=== PATIENT | female | born 1950 | race Caucasian/White ===

== ENCOUNTER 2016-07-10 09:36 | Inpatient (IN) | payer BC ==
[~2016-07-10] VITALS: Ht 152.4 cm; Wt 85.4 kg
[~2016-07-10 09:36] MED LIST: AMLO5TAB2 PO; AMOX500T PO; CYCL10TA2 PO; TRAM-29 PO; ZOLP10TA PO
[2016-07-10] MEDS ORDERED: FAMOTIDINE 20 MG/2 ML VIAL IVP ONE (10:00)
[2016-07-10] MEDS ORDERED: ONDANSETRON PF 4 MG/2 ML VIAL. IV ONE (10:00)
[2016-07-10] MEDS ORDERED: IV NORMAL SALINE 1000ML BAG 1,000 ML IV ONE ×2 (10:00→12:45)
--- NOTE | 2016-07-10 10:02 | PHYS DOC ---
Past Medical History Past Medical History: Hypertension, Other Additional Past Medical Histor: CREST, RAYNAUDS Past Surgical History: Appendectomy, Cholecystectomy, Hysterectomy, Other Additional Past Surgical Histo: BREAST REDUCTION, RIGHT FOOT SURGERY Alcohol Use: Rarely Drug Use: None Adult General Chief Complaint Chief Complaint: RECTAL BLEED [facility] HPI Patient is a 66 year old female with history of CREST, hypertension, cholecystectomy and Raynaud's disease who presents today with black tarry stools that began 3 days ago. Patient is also complaining of RUQ abdominal pain. Patient is also complaining of nausea with no vomiting. Patient states she 's had loose stools since yesterday. Patient states she has history of lower GI bleed. She states she had an upper GI endoscopy done [place] [address] Duncan and followed up with him. Review of Systems Review of Systems Constitutional: Denies fever or chills [] Eyes: Denies change in visual acuity, redness, or eye pain [] HENT: Denies nasal congestion or sore throat [] Respiratory: Denies cough or shortness of breath [] Cardiovascular: No additional information not addressed in HPI [] GI: Upper abdominal pain, nausea, black tarry stools. : Denies dysuria or hematuria [] Musculoskeletal: Denies back pain or joint pain [] Integument: Denies rash or skin lesions [] Neurologic: Denies headache, focal weakness or sensory changes [] Endocrine: Denies polyuria or polydipsia [] Current Medications Current Medications Current Medications Medications (Trade) Dose Ordered Sig/Denise Start Time Stop Time Status Last Admin Dose Admin Famotidine (Pepcid) 20 mg 1X ONCE 07/10/16 10:00 07/10/16 10:01 DC 07/10/16 10:12 20 MG Ondansetron HCl (Zofran) 4 mg 1X ONCE 07/10/16 10:00 07/10/16 10:01 DC 07/10/16 10:11 4 MG Sodium Chloride 1,000 ml @ 1,000 mls/hr 1X ONCE 07/10/16 10:00 07/10/16 10:59 DC 07/10/16 10:09 1,000 MLS/HR Allergies Allergies Allergies Coded Allergies Type Severity Reaction Last Updated Verified Sulfa (Sulfonamide Antibiotics) Allergy Severe Anaphylaxis 06/06/15 Yes codeine Allergy Mild NAUSEA 05/15/15 Yes Physical Exam Physical Exam Constitutional: Well developed, well nourished, no acute distress, non-toxic appearance. [] HENT: Normocephalic, atraumatic, bilateral external ears normal, oropharynx moist, no oral exudates, nose normal. [] Eyes: PERRLA, EOMI, conjunctiva normal, no discharge. [] Neck: Normal range of motion, no tenderness, supple, no stridor. [] Cardiovascular:Heart rate regular rhythm, no murmur [] Lungs & Thorax: Bilateral breath sounds clear to auscultation [] Abdomen: Rounded abdomen. Bowel sounds normal, soft, no tenderness, no masses, no pulsatile masses. [] Rectal exam External rectal area has small amount of hemorrhoids. No internal hemorrhoids on exam. Fecal material from rectal exam appears black and tarry with red bloody areas Skin: Warm, dry, no erythema, no rash. [] Back: No tenderness, no CVA tenderness. [] Extremities: No tenderness, no cyanosis, no clubbing, ROM intact, no edema. [] Neurologic: Alert and oriented X 3, normal motor function, normal sensory function, no focal deficits noted. [] Psychologic: Affect normal, judgement normal, mood normal. [] Current Patient Data Vital Signs Vital Signs Date Time Temp Pulse Resp B/P (MAP) Pulse Ox O2 Delivery O2 Flow Rate FiO2 07/10/16 10:50 68 16 118/58 (78) 96 Room Air 07/10/16 09:45 97.9 97.9 Lab Values Laboratory Tests Test 07/10/16 09:45 07/10/16 09:50 07/10/16 10:05 Stool Occult Blood Positive (NEG) White Blood Count 6.9 x10^3/uL (4.0-11.0) Red Blood Count 3.95 x10^6/uL (3.50-5.40) Hemoglobin 11.8 g/dL (12.0-15.5) L Hematocrit 34.8 % (36.0-47.0) L Mean Corpuscular Volume 88 fL (79-100) Mean Corpuscular Hemoglobin 30 pg (25-35) Mean Corpuscular Hemoglobin Concent 34 g/dL (31-37) Red Cell Distribution Width 15.5 % (11.5-14.5) H Platelet Count 148 x10^3/uL (140-400) Neutrophils (%) (Auto) 61 % (31-73) Lymphocytes (%) (Auto) 22 % (24-48) L Monocytes (%) (Auto) 12 % (0-9) H Eosinophils (%) (Auto) 4 % (0-3) H Basophils (%) (Auto) 1 % (0-3) Neutrophils # (Auto) 4.2 x10^3uL (1.8-7.7) Lymphocytes # (Auto) 1.5 x10^3/uL (1.0-4.8) Monocytes # (Auto) 0.8 x10^3/uL (0.0-1.1) Eosinophils # (Auto) 0.3 x10^3/uL (0.0-0.7) Basophils # (Auto) 0.1 x10^3/uL (0.0-0.2) Prothrombin Time 12.6 SEC (11.7-14.0) Prothrombin Time INR 1.0 (0.8-1.1) PTT 29 SEC (24-38) Sodium Level 137 mmol/L (136-145) Potassium Level 3.7 mmol/L (3.5-5.1) Chloride Level 104 mmol/L (98-107) Carbon Dioxide Level 24 mmol/L (21-32) Anion Gap 9 (6-14) Blood Urea Nitrogen 25 mg/dL (7-20) H Creatinine 1.0 mg/dL (0.6-1.0) Estimated GFR (Cockcroft-Gault) 55.3 BUN/Creatinine Ratio 25 (6-20) H Glucose Level 90 mg/dL (70-99) Calcium Level 8.6 mg/dL (8.5-10.1) Total Bilirubin 1.0 mg/dL (0.2-1.0) Aspartate Amino Transferase (AST) 52 U/L (15-37) H Alanine Aminotransferase (ALT) 53 U/L (14-59) Alkaline Phosphatase 128 U/L (46-116) H Total Protein 7.0 g/dL (6.4-8.2) Albumin 3.0 g/dL (3.4-5.0) L Albumin/Globulin Ratio 0.8 (1.0-1.7) L Lipase 210 U/L (73-393) Urine Collection Type Void Urine Color Yellow Urine Clarity Clear Urine pH 5.5 Urine Specific [place] <=1.005 Urine Protein Negative mg/dL (NEG-TRACE) Urine Glucose (UA) Negative mg/dL (NEG) Urine Ketones (Stick) Negative mg/dL (NEG) Urine Blood Negative (NEG) Urine Nitrite Negative (NEG) Urine Bilirubin Negative (NEG) Urine Urobilinogen Dipstick 0.2 mg/dL (0.2 mg/dL) Urine Leukocyte Esterase Negative (NEG) Urine RBC 0 /HPF (0-2) Urine WBC 0 /HPF (0-4) Urine Squamous Epithelial Cells Few /LPF Urine Bacteria 0 /HPF (0-FEW) Laboratory Tests 07/10/16 09:50 Laboratory Tests 07/10/16 09:50 EKG EKG [] Radiology/Procedures Radiology/Procedures [] Course & Med Decision Making Course & Med Decision Making Pertinent Labs and Imaging studies reviewed. (See chart for details) Patient is in the ED with complaints of black tarry stools for 3 days. She has history of GI bleed. She states she had an upper GI scope done in 2015 and follows up with DR. Duncan. Patient denies using NSAIDs. CBC with hemoglobin of 11.8, hematocrit 34.8. CMP with no acute findings, vitals on arrival to the ED temperature 97.9, heart rate 78, respiration 18 on room air, O2 sats 95% on room air, blood pressure 169/70. Consulted with Dr. Fierro who accepted patient for admission. Consulted Dr. Duncan who will follow up with the patient. Dragon Disclaimer Dragon Disclaimer This electronic medical record was generated, in whole or in part, using a voice recognition dictation system. Departure Departure Impression: Primary Impression: GI bleed Additional Impression: Hypertension Disposition: ADMITTED INPATIENT Admitting Physician: Prashanth Fierro Condition: STABLE Referrals: ABRAHAM PAUL Jr, MD (PCP) Problem Qualifiers Primary Impression: GI bleed GI bleed type/associated pathology: melena Qualified Codes: K92.1 - Melena Additional Impression: Hypertension Hypertension type: unspecified secondary hypertension Qualified Codes: I15.9 - Secondary hypertension, unspecified MUTUNGAASIA PH[employer]GRAPHIC SPECIALIST July 10, 2016 10:02
[2016-07-10 10:10] LABS: BASO # 0.1 x10^3/uL (0.0-0.2); BASO % 1 % (0-3); EOS % 4 % (0-3); HEMATOCRIT 34.8 % (36.0-47.0); HEMOGLOBIN 11.8 g/dL (12.0-15.5); LYMPH # 1.5 x10^3/uL (1.0-4.8); LYMPH % 22 % (24-48); MEAN CORPUSCULAR HEMOGLOBIN 30 pg (25-35); MEAN CORPUSCULAR HGB CONC 34 g/dL (31-37); MEAN CORPUSCULAR VOLUME 88 fL (79-100); MONO % 12 % (0-9); NEUT % 61 % (31-73); PLATELET COUNT 148 x10^3/uL (140-400); RED BLOOD COUNT 3.95 x10^6/uL (3.50-5.40); RED CELL DISTRIBUTION WIDTH 15.5 % (11.5-14.5); WHITE BLOOD COUNT 6.9 x10^3/uL (4.0-11.0)
[2016-07-10 10:12] LABS: CALCIUM 8.6 mg/dL (8.5-10.1); GFR 55.3; POTASSIUM 3.7 mmol/L (3.5-5.1)
[2016-07-10 10:20] LABS: ALBUMIN/GLOBULIN RATIO 0.8 (1.0-1.7)
[2016-07-10 10:31] LABS: NEG OBC FOB NEG; POS OBC FOB POS
[2016-07-10 10:39] LABS: PROTHROMBIN TIME PATIENT 12.6 SEC (11.7-14.0)
[2016-07-10 10:49] LABS: BILIRUBIN,URINE NEGATIVE (NEG); GLUCOSE,URINE NEGATIVE (NEG); NITRITE,URINE NEGATIVE (NEG); PH,URINE 5.5; PROTEIN,URINE NEGATIVE (NEG-TRACE); UROBILINOGEN,URINE 0.2 mg/dL (0.2 mg/dL)
[2016-07-10 11:09] LABS: RBC,URINE 0 /HPF (0-2)
[2016-07-10 11:10] LABS: BACTERIA,URINE 0 /HPF (0-FEW); SQUAMOUS EPITHELIAL CELL,UR FEW /LPF; WBC,URINE 0 /HPF (0-4)
[2016-07-10] MEDS ORDERED: fentaNYL PF VIAL 100 MCG/2 ML VIAL IV PRN (12:45)
[2016-07-10] MEDS ORDERED: ONDANSETRON PF 4 MG/2 ML VIAL. IV PRN (12:45)
[2016-07-10] MEDS ORDERED: PANTOPRAZOLE SODIUM IV 80 MG in IV NORMAL SALINE 100ML 100 ML IV ONE (13:00)
[2016-07-10 13:50] VITALS: BP 124/48
--- NOTE | 2016-07-10 13:52 | PDOC2 ---
GI CONSULT Reason For Consult: GI Bleed HPI: HPI: 66 y/o female evaluated in the ER w/ pending admission. Reports black stools ( first formed, now loose) x 3 days, some RUQ pain and bloating which have improved. Some SOA which is not a new symptom. No n/v, reflux/heartburn, dysphagia, weight loss, change in appetite. Had similar symptoms in 2016, underwent EGD w/ Dr. Duncan in 05/2015 which showed non-erosive gastritis. Colonoscopy in 06/2015 showed sigmoid diverticulosis. SBCE/SBS was discussed, neither performed. Takes Tylenol PRN, no ASA or NSAIDs. No Pepto or iron. PMH: PMH: CREST (follows w/ rheum), Raynaud's, hypothyroidism, breast reduction, tonsillectomy, appendectomy, cholecystectomy, hysterectomy, unilateral salpingo- oophorectomy FH: Family History: Cancer (colon - grandmother, lung - father) Social History: Smoke: No Drugs: None ROS: GEN: Denies fevers, chills, sweats HEENT: Denies blurred vision, sore throat CV: Denies chest pain RESP: +shortness of air GI: Per HPI : Denies hematuria, dysuria ENDO: Denies weight changes NEURO: Denies confusion, dizziness MSK: Denies weakness, joint pain/swelling SKIN: Denies jaundice, pruritus Vitals: Vitals: Vital Signs Date Time Temp Pulse Resp B/P (MAP) Pulse Ox O2 Delivery O2 Flow Rate FiO2 07/10/16 12:52 62 18 111/52 (71) 99 Room Air 07/10/16 09:45 97.9 97.9 Labs: Labs: Laboratory Tests Test 07/10/16 09:45 07/10/16 09:50 07/10/16 10:05 Stool Occult Blood Positive (NEG) White Blood Count 6.9 x10^3/uL (4.0-11.0) Red Blood Count 3.95 x10^6/uL (3.50-5.40) Hemoglobin 11.8 g/dL (12.0-15.5) Hematocrit 34.8 % (36.0-47.0) Mean Corpuscular Volume 88 fL (79-100) Mean Corpuscular Hemoglobin 30 pg (25-35) Mean Corpuscular Hemoglobin Concent 34 g/dL (31-37) Red Cell Distribution Width 15.5 % (11.5-14.5) Platelet Count 148 x10^3/uL (140-400) Neutrophils (%) (Auto) 61 % (31-73) Lymphocytes (%) (Auto) 22 % (24-48) Monocytes (%) (Auto) 12 % (0-9) Eosinophils (%) (Auto) 4 % (0-3) Basophils (%) (Auto) 1 % (0-3) Neutrophils # (Auto) 4.2 x10^3uL (1.8-7.7) Lymphocytes # (Auto) 1.5 x10^3/uL (1.0-4.8) Monocytes # (Auto) 0.8 x10^3/uL (0.0-1.1) Eosinophils # (Auto) 0.3 x10^3/uL (0.0-0.7) Basophils # (Auto) 0.1 x10^3/uL (0.0-0.2) Prothrombin Time 12.6 SEC (11.7-14.0) Prothromb Time International Ratio 1.0 (0.8-1.1) Activated Partial Thromboplast Time 29 SEC (24-38) Sodium Level 137 mmol/L (136-145) Potassium Level 3.7 mmol/L (3.5-5.1) Chloride Level 104 mmol/L (98-107) Carbon Dioxide Level 24 mmol/L (21-32) Anion Gap 9 (6-14) Blood Urea Nitrogen 25 mg/dL (7-20) Creatinine 1.0 mg/dL (0.6-1.0) Estimated GFR (Cockcroft-Gault) 55.3 BUN/Creatinine Ratio 25 (6-20) Glucose Level 90 mg/dL (70-99) Calcium Level 8.6 mg/dL (8.5-10.1) Total Bilirubin 1.0 mg/dL (0.2-1.0) Aspartate Amino Transf (AST/SGOT) 52 U/L (15-37) Alanine Aminotransferase (ALT/SGPT) 53 U/L (14-59) Alkaline Phosphatase 128 U/L (46-116) Total Protein 7.0 g/dL (6.4-8.2) Albumin 3.0 g/dL (3.4-5.0) Albumin/Globulin Ratio 0.8 (1.0-1.7) Lipase 210 U/L (73-393) Urine Collection Type Void Urine Color Yellow Urine Clarity Clear Urine pH 5.5 Urine Specific [place] <=1.005 Urine Protein Negative mg/dL (NEG-TRACE) Urine Glucose (UA) Negative mg/dL (NEG) Urine Ketones (Stick) Negative mg/dL (NEG) Urine Blood Negative (NEG) Urine Nitrite Negative (NEG) Urine Bilirubin Negative (NEG) Urine Urobilinogen Dipstick 0.2 mg/dL (0.2 mg/dL) Urine Leukocyte Esterase Negative (NEG) Urine RBC 0 /HPF (0-2) Urine WBC 0 /HPF (0-4) Urine Squamous Epithelial Cells Few /LPF Urine Bacteria 0 /HPF (0-FEW) Allergies: Coded Allergies: Sulfa (Sulfonamide Antibiotics) (Verified Allergy, Severe, Anaphylaxis, 06/06/15) codeine (Verified Allergy, Mild, NAUSEA, 05/15/15) Medications: Current Medications Medications (Trade) Dose Ordered Sig/Denise Route PRN Reason Start Time Stop Time Status Last Admin Dose Admin Sodium Chloride 1,000 ml @ 1,000 mls/hr 1X ONCE IV 07/10/16 10:00 07/10/16 10:59 DC 07/10/16 10:09 Famotidine (Pepcid) 20 mg 1X ONCE IVP 07/10/16 10:00 07/10/16 10:01 DC 07/10/16 10:12 Ondansetron HCl (Zofran) 4 mg 1X ONCE IV 07/10/16 10:00 07/10/16 10:01 DC 07/10/16 10:11 Pantoprazole Sodium 80 mg/ Sodium Chloride 100 ml @ 10 mls/hr 1X ONCE IV 07/10/16 13:00 07/10/16 22:59 07/10/16 13:13 Sodium Chloride 1,000 ml @ 75 mls/hr 1X ONCE IV 07/10/16 12:45 07/11/16 02:04 07/10/16 13:17 Imaging: Imaging: - PE: GEN: NAD HEENT: Atraumatic, PERRL LUNGS: CTAB anteriorly HEART: RRR ABD: NABS, S/ND/NT EXTREMITY: No edema SKIN: No rashes, no jaundice NEURO/PSYCH: A & O 3 A/P: A/P: Dark stools -onset 3 days ago -similar symptoms in 2016, EGD and colonoscopy w/ non-erosive gastritis and diverticulosis RUQ pain, bloating Anemia, heme positive stool -- D/w Dr. Duncan - will check bleeding scan and monitor labs. Add PPI. LUI POWELL July 10, 2016 13:52
[2016-07-10 15:00] VITALS: BP 113/46
--- NOTE | 2016-07-10 16:20 | RAD ---
Indication: Bloody stools. The patient was administered 33 mCi technetium 99 9M pertechnetate labeled to the patient's red blood cells and imaging over the abdomen was performed. There is normal uptake of activity by the liver and spleen as well as within the aorta and iliac vasculature. No abnormal accumulation of activity is identified to suggest GI bleed. Impression: Normal GI bleeding scan.
--- NOTE | 2016-07-10 16:30 | HP ---
ADMIT DATE: 07/10/2016 CHIEF COMPLAINT: GI bleed, dark stools. HISTORY OF PRESENT ILLNESS: The patient is a pleasant middle-aged female who presents with dark stools, have been occurring for several days. She has had previous ulcers. I discussed the case with the ER physician. We are going to admit the patient ____ IV proton pump inhibitors and consult GI. She will probably be going for an endoscopy. PAST MEDICAL HISTORY: Previous GI bleeds, hypertension, muscle spasms and insomnia. ALLERGIES: SULFA AND CODEINE. FAMILY HISTORY: Diabetes. SOCIAL HISTORY: She does not drink, smoke or take drugs. MEDICATIONS: Reviewed. She is on 5 medications, please refer to the MRAD. REVIEW OF SYSTEMS: GENERAL: No history of weight change, weakness or fevers. SKIN: No bruising, hair changes or rashes. EYES: No blurred, double or loss of vision. NOSE AND THROAT: No history of nosebleeds, hoarseness or sore throat. HEART: No history of palpitations, chest pain or shortness of breath on exertion. LUNGS: Denies cough, hemoptysis, wheezing or shortness of breath. GASTROINTESTINAL: She complains of dark stools. GENITOURINARY: No history of frequency, urgency, hesitancy or nocturia. NEUROLOGIC: Denies history of numbness, tingling, tremor or weakness. PSYCHIATRIC: No history of panic, anxiety or depression. ENDOCRINE: No history of heat or cold intolerance, polyuria or polydipsia. EXTREMITIES: Denies muscle weakness, joint pain, pain on walking or stiffness. PHYSICAL EXAMINATION: VITAL SIGNS: Temperature afebrile, pulse 67, respirations 18, blood pressure 113/53. GENERAL: She is alert, cooperative. HEART: Normal S1, S2. LUNGS: Clear. ABDOMEN: Soft, positive bowel sounds. Tender in the epigastrium. EXTREMITIES: No edema. SKIN: No rashes. PSYCHIATRIC: She is stable. VASCULAR: Good capillary refill. ENDOCRINE: No thyromegaly. LYMPHATICS: No cervical nodes. HEMATOPOIETIC: No bruising. LABORATORY DATA: White count 6.9, hemoglobin 11.8, platelets 148. Electrolytes normal other than BUN of 25. ASSESSMENT AND PLAN: Acute on chronic gastrointestinal bleed. The patient has been admitted. We will consult GI. IV proton pump inhibitors. Continue home medicines. Frequent hemoglobin levels, transfuse p.r.n. if hemoglobin less than 8. OLIVIA VALENTE DO DR: CHITO/michelle JOB#: [id number] / [id number]
[2016-07-10 16:47] LABS: BASO % 1 % (0-3); EOS % 5 % (0-3); HEMATOCRIT 33.5 % (36.0-47.0); HEMOGLOBIN 11.2 g/dL (12.0-15.5); LYMPH # 1.7 x10^3/uL (1.0-4.8); LYMPH % 28 % (24-48); MEAN CORPUSCULAR HEMOGLOBIN 30 pg (25-35); MEAN CORPUSCULAR HGB CONC 34 g/dL (31-37); MEAN CORPUSCULAR VOLUME 89 fL (79-100); MONO % 11 % (0-9); NEUT % 56 % (31-73); PLATELET COUNT 134 x10^3/uL (140-400); RED BLOOD COUNT 3.75 x10^6/uL (3.50-5.40); RED CELL DISTRIBUTION WIDTH 15.4 % (11.5-14.5); WHITE BLOOD COUNT 6.2 x10^3/uL (4.0-11.0)
[2016-07-10] MEDS ORDERED: LEVO25TA4 PO (17:48)
--- NOTE | 2016-07-10 18:30 | ACF ---
Admission Forms Criteria GASTROINTESTINAL BLEEDING, LOWER Clinical Indications for Admission to Inpatient Care ( Place 'X' for any and all applicable criteria): Admission is indicated for ANY ONE of the following(1)(2)(3)(4)(5): [X]I. Active gross bleeding per rectum [ ]II. Inpatient admission required rather than observation care (Also use Gastrointestinal Bleeding, Lower: Observation Care as appropriate) because of ANY ONE of the following: [ ]a) Hemodynamic instability that is severe or persistent [ ]b) Anemia requiring inpatient admission as indicated by ALL of the following: [ ]1) Presence of significant clinical finding indicated by ANY ONE of the following: [ ]A. Tachycardia for age [ ]B. Orthostatic vital sign changes [ ]C. Cognitive impairment [ ]D. Heart failure [ ]E. Chest pain [ ]F. Exertional dyspnea [ ]G. Other findings suggesting inadequate perfusion (eg, peripheral or myocardial ischemia, end organ dysfunction) [ ]2) Initial (eg, emergency department, observation care) treatment with transfusion or volume replacement is judged inappropriate (due to severity of the finding) or has been ineffective [ ]c) Severe pain requiring acute inpatient management [ ]d) Absent bowel sounds with complete ileus [ ]e) Signs of intestinal obstruction or peritonitis [A] [ ]f) High-risk low platelet count [ ]g) Severe electrolyte abnormalities requiring inpatient care [ ]h) Acute renal failure [ ]i) High fever or infection requiring inpatient admission as indicated by ANY ONE of the following(8)(9): [ ]1) Appropriate outpatient or observation care antimicrobial treatment unavailable, not effective, or not feasible Documented bacteremia [ ]2) Documented bacteremia [ ]3) Temperature greater than 104.9 degrees F ( 40.5 degrees C) (oral) [ ]4) Temperature greater than 103.1 degrees F ( 39.5 degrees C) (oral) or less than 96.8 degrees F (36 degrees C) (rectal) that does not respond to all emergency treatment measures [ ]j) IV fluid to replace significant ongoing losses ( greater than 3 L/m2 per day) [ ]k) Immediate inpatient surgery needed [ ]l) Parenteral nutrition regimen that must be implemented on inpatient basis [ ]m) Other condition, treatment or monitoring requiring inpatient admission [ ]III. Unstable comorbid illness (renal, hepatic, pulmonary, hematologic, neurologic, or cardiac) [ ]IV. Failure to control bleeding after colonoscopy [ ]V. Coagulopathy [ ]. Suspected or known ischemic colitis(6) [ ]VII. Previous aortic graft placement or known aortic aneurysm Extended stay beyond goal length of stay may be needed for(3)(4)(28): [ ]a) Emergency surgery [ ]b) Coagulation abnormalities(26) [ ]c) Recurrent or persistent bleeding, continued vital sign instability(27)( 28) [ ]d) Active comorbidities (eg, renal insufficiency, heart failure, pre- existing liver disease) The original [facility] content created by [employer] has been revised. The portions of the content which have been revised are identified through the use of italic text or in bold, and [facility] has neither reviewed nor approved the modified material. All other unmodified content is copyright [facility]. Please see references footnoted in the original [facility] edition 2016 Admission Criteria Met?: Yes KATHY BARNETT July 10, 2016 18:30
[2016-07-10 19:46] VITALS: BP 107/62
[2016-07-10] MEDS ORDERED: ZOLPIDEM 5 MG TABLET. PO PRN (21:00)
[2016-07-10] MEDS ORDERED: ACETAMINOPHEN 325 MG TABLET. PO PRN (21:30)
[2016-07-10 23:15] VITALS: BP 104/54
[2016-07-11 03:14] VITALS: BP 114/53
[2016-07-11 04:38] LABS: BASO % 1 % (0-3); EOS % 6 % (0-3); HEMATOCRIT 29.8 % (36.0-47.0); HEMOGLOBIN 10.1 g/dL (12.0-15.5); LYMPH # 1.3 x10^3/uL (1.0-4.8); LYMPH % 27 % (24-48); MEAN CORPUSCULAR HEMOGLOBIN 30 pg (25-35); MEAN CORPUSCULAR HGB CONC 34 g/dL (31-37); MEAN CORPUSCULAR VOLUME 90 fL (79-100); MONO % 12 % (0-9); NEUT % 54 % (31-73); PLATELET COUNT 110 x10^3/uL (140-400); RED BLOOD COUNT 3.32 x10^6/uL (3.50-5.40); RED CELL DISTRIBUTION WIDTH 15.6 % (11.5-14.5); WHITE BLOOD COUNT 4.7 x10^3/uL (4.0-11.0)
[2016-07-11 04:57] LABS: CALCIUM 8.3 mg/dL (8.5-10.1); GFR 55.3; POTASSIUM 3.8 mmol/L (3.5-5.1)
[2016-07-11 07:25] VITALS: BP 126/59
[2016-07-11] MEDS ORDERED: PANTOPRAZOLE IV PUSH 40 MG VIAL. IVP SCH (07:30)
[2016-07-11] MEDS ORDERED: LEVOTHYROXINE 25 MCG TABLET. PO SCH (07:30)
--- NOTE | 2016-07-11 10:13 | PDOC ---
Subjective: Subjective: Having a BM when I stopped by - formed, dark brown. Denies GI complaints, tolerating full liquids. Objective: Objective: Per RN - no further bleeding. Vital Signs: Vital Signs Date Time Temp Pulse Resp B/P (MAP) Pulse Ox O2 Delivery O2 Flow Rate FiO2 07/11/16 08:00 Room Air 07/11/16 07:25 97.9 65 20 126/59 (81) 92 97.9 Labs: Laboratory Tests Test 07/10/16 16:15 07/11/16 03:28 White Blood Count 6.2 x10^3/uL 4.7 x10^3/uL Red Blood Count 3.75 x10^6/uL 3.32 x10^6/uL Hemoglobin 11.2 g/dL 10.1 g/dL Hematocrit 33.5 % 29.8 % Mean Corpuscular Volume 89 fL 90 fL Mean Corpuscular Hemoglobin 30 pg 30 pg Mean Corpuscular Hemoglobin Concent 34 g/dL 34 g/dL Red Cell Distribution Width 15.4 % 15.6 % Platelet Count 134 x10^3/uL 110 x10^3/uL Neutrophils (%) (Auto) 56 % 54 % Lymphocytes (%) (Auto) 28 % 27 % Monocytes (%) (Auto) 11 % 12 % Eosinophils (%) (Auto) 5 % 6 % Basophils (%) (Auto) 1 % 1 % Neutrophils # (Auto) 3.4 x10^3uL 2.6 x10^3uL Lymphocytes # (Auto) 1.7 x10^3/uL 1.3 x10^3/uL Monocytes # (Auto) 0.7 x10^3/uL 0.5 x10^3/uL Eosinophils # (Auto) 0.3 x10^3/uL 0.3 x10^3/uL Basophils # (Auto) 0.0 x10^3/uL 0.0 x10^3/uL Sodium Level 142 mmol/L Potassium Level 3.8 mmol/L Chloride Level 111 mmol/L Carbon Dioxide Level 23 mmol/L Anion Gap 8 Blood Urea Nitrogen 16 mg/dL Creatinine 1.0 mg/dL Estimated GFR (Cockcroft-Gault) 55.3 Glucose Level 85 mg/dL Calcium Level 8.3 mg/dL Imaging: GI Bleed Scan 07/10/16 Impression: Normal GI bleeding scan. PE: GEN: NAD, in restroom ABD: S/ND/NT NEURO/PSYCH: A & O 3 OTHER: dark brown formed stool in toilet A/P: Dark stools - resolving -similar symptoms in 2016, EGD and colonoscopy w/ non-erosive gastritis and diverticulosis -bleeding scan neg this admission Anemia, heme positive stool -some drift in Hgb overnight, no further bleeding -- Possible diverticular bleed. Could consider SBCE/SBS as outpt if indicated. CHRISTINA BARBOZA per primary. LUI POWELL July 11, 2016 10:13
[2016-07-11 11:00] VITALS: BP 120/49
--- NOTE | 2016-07-11 11:20 | PDOC ---
PROGRESS NOTES Chief Complaint Chief Complaint Lower GI bleed CREST Hypertension Raynaud's History of Present Illness History of Present Illness No acute complaints. States she has had 2 bowel movements with no blood. Discussed care with nurse Vitals Vitals Vital Signs Date Time Temp Pulse Resp B/P (MAP) Pulse Ox O2 Delivery O2 Flow Rate FiO2 07/11/16 11:00 97.9 68 18 120/49 (72) 92 Room Air 97.9 Physical Exam General: Alert, Oriented X3, Cooperative, No acute distress Heart: Regular rate, Normal S1, Normal S2 Lungs: Clear, Other (no wheezing) Abdomen: Normal bowel sounds, Soft, No tenderness Extremities: No clubbing, No cyanosis Skin: No rashes, No breakdown Labs LABS Laboratory Tests Test 07/10/16 16:15 07/11/16 03:28 White Blood Count 6.2 x10^3/uL (4.0-11.0) 4.7 x10^3/uL (4.0-11.0) Red Blood Count 3.75 x10^6/uL (3.50-5.40) 3.32 x10^6/uL (3.50-5.40) Hemoglobin 11.2 g/dL (12.0-15.5) 10.1 g/dL (12.0-15.5) Hematocrit 33.5 % (36.0-47.0) 29.8 % (36.0-47.0) Mean Corpuscular Volume 89 fL (79-100) 90 fL (79-100) Mean Corpuscular Hemoglobin 30 pg (25-35) 30 pg (25-35) Mean Corpuscular Hemoglobin Concent 34 g/dL (31-37) 34 g/dL (31-37) Red Cell Distribution Width 15.4 % (11.5-14.5) 15.6 % (11.5-14.5) Platelet Count 134 x10^3/uL (140-400) 110 x10^3/uL (140-400) Neutrophils (%) (Auto) 56 % (31-73) 54 % (31-73) Lymphocytes (%) (Auto) 28 % (24-48) 27 % (24-48) Monocytes (%) (Auto) 11 % (0-9) 12 % (0-9) Eosinophils (%) (Auto) 5 % (0-3) 6 % (0-3) Basophils (%) (Auto) 1 % (0-3) 1 % (0-3) Neutrophils # (Auto) 3.4 x10^3uL (1.8-7.7) 2.6 x10^3uL (1.8-7.7) Lymphocytes # (Auto) 1.7 x10^3/uL (1.0-4.8) 1.3 x10^3/uL (1.0-4.8) Monocytes # (Auto) 0.7 x10^3/uL (0.0-1.1) 0.5 x10^3/uL (0.0-1.1) Eosinophils # (Auto) 0.3 x10^3/uL (0.0-0.7) 0.3 x10^3/uL (0.0-0.7) Basophils # (Auto) 0.0 x10^3/uL (0.0-0.2) 0.0 x10^3/uL (0.0-0.2) Sodium Level 142 mmol/L (136-145) Potassium Level 3.8 mmol/L (3.5-5.1) Chloride Level 111 mmol/L (98-107) Carbon Dioxide Level 23 mmol/L (21-32) Anion Gap 8 (6-14) Blood Urea Nitrogen 16 mg/dL (7-20) Creatinine 1.0 mg/dL (0.6-1.0) Estimated GFR (Cockcroft-Gault) 55.3 Glucose Level 85 mg/dL (70-99) Calcium Level 8.3 mg/dL (8.5-10.1) Review of Systems Review of Systems General: denies weakness GI: denies N/V/D/C, denies blood in stool Assessment and Plan Assessmemt and Plan Problems Medical Problems: (1) GI bleed Status: Acute (2) Hypertension Status: Acute Lower GI bleed CREST Hypertension Raynaud's Plan: -GI bleed scan was negative -GI following - state possible diverticular bleed and could consider SBCE/SBS as outpt if indicated -Advance diet as tolerated -Discharge today if ok with GI -Follow up with PCP as outpatient in one week -Subspecialty input appreciated Problems: Comment Review of Relevant I have reviewed the following items lizbeth (where applicable) has been applied. Labs Laboratory Tests Test 07/10/16 09:45 07/10/16 09:50 07/10/16 10:05 07/10/16 16:15 Stool Occult Blood Positive (NEG) White Blood Count 6.9 x10^3/uL (4.0-11.0) 6.2 x10^3/uL (4.0-11.0) Red Blood Count 3.95 x10^6/uL (3.50-5.40) 3.75 x10^6/uL (3.50-5.40) Hemoglobin 11.8 g/dL (12.0-15.5) 11.2 g/dL (12.0-15.5) Hematocrit 34.8 % (36.0-47.0) 33.5 % (36.0-47.0) Mean Corpuscular Volume 88 fL (79-100) 89 fL (79-100) Mean Corpuscular Hemoglobin 30 pg (25-35) 30 pg (25-35) Mean Corpuscular Hemoglobin Concent 34 g/dL (31-37) 34 g/dL (31-37) Red Cell Distribution Width 15.5 % (11.5-14.5) 15.4 % (11.5-14.5) Platelet Count 148 x10^3/uL (140-400) 134 x10^3/uL (140-400) Neutrophils (%) (Auto) 61 % (31-73) 56 % (31-73) Lymphocytes (%) (Auto) 22 % (24-48) 28 % (24-48) Monocytes (%) (Auto) 12 % (0-9) 11 % (0-9) Eosinophils (%) (Auto) 4 % (0-3) 5 % (0-3) Basophils (%) (Auto) 1 % (0-3) 1 % (0-3) Neutrophils # (Auto) 4.2 x10^3uL (1.8-7.7) 3.4 x10^3uL (1.8-7.7) Lymphocytes # (Auto) 1.5 x10^3/uL (1.0-4.8) 1.7 x10^3/uL (1.0-4.8) Monocytes # (Auto) 0.8 x10^3/uL (0.0-1.1) 0.7 x10^3/uL (0.0-1.1) Eosinophils # (Auto) 0.3 x10^3/uL (0.0-0.7) 0.3 x10^3/uL (0.0-0.7) Basophils # (Auto) 0.1 x10^3/uL (0.0-0.2) 0.0 x10^3/uL (0.0-0.2) Prothrombin Time 12.6 SEC (11.7-14.0) Prothromb Time International Ratio 1.0 (0.8-1.1) Activated Partial Thromboplast Time 29 SEC (24-38) Sodium Level 137 mmol/L (136-145) Potassium Level 3.7 mmol/L (3.5-5.1) Chloride Level 104 mmol/L (98-107) Carbon Dioxide Level 24 mmol/L (21-32) Anion Gap 9 (6-14) Blood Urea Nitrogen 25 mg/dL (7-20) Creatinine 1.0 mg/dL (0.6-1.0) Estimated GFR (Cockcroft-Gault) 55.3 BUN/Creatinine Ratio 25 (6-20) Glucose Level 90 mg/dL (70-99) Calcium Level 8.6 mg/dL (8.5-10.1) Total Bilirubin 1.0 mg/dL (0.2-1.0) Aspartate Amino Transf (AST/SGOT) 52 U/L (15-37) Alanine Aminotransferase (ALT/SGPT) 53 U/L (14-59) Alkaline Phosphatase 128 U/L (46-116) Total Protein 7.0 g/dL (6.4-8.2) Albumin 3.0 g/dL (3.4-5.0) Albumin/Globulin Ratio 0.8 (1.0-1.7) Lipase 210 U/L (73-393) Urine Collection Type Void Urine Color Yellow Urine Clarity Clear Urine pH 5.5 Urine Specific [place] <=1.005 Urine Protein Negative mg/dL (NEG-TRACE) Urine Glucose (UA) Negative mg/dL (NEG) Urine Ketones (Stick) Negative mg/dL (NEG) Urine Blood Negative (NEG) Urine Nitrite Negative (NEG) Urine Bilirubin Negative (NEG) Urine Urobilinogen Dipstick 0.2 mg/dL (0.2 mg/dL) Urine Leukocyte Esterase Negative (NEG) Urine RBC 0 /HPF (0-2) Urine WBC 0 /HPF (0-4) Urine Squamous Epithelial Cells Few /LPF Urine Bacteria 0 /HPF (0-FEW) Test 07/11/16 03:28 White Blood Count 4.7 x10^3/uL (4.0-11.0) Red Blood Count 3.32 x10^6/uL (3.50-5.40) Hemoglobin 10.1 g/dL (12.0-15.5) Hematocrit 29.8 % (36.0-47.0) Mean Corpuscular Volume 90 fL (79-100) Mean Corpuscular Hemoglobin 30 pg (25-35) Mean Corpuscular Hemoglobin Concent 34 g/dL (31-37) Red Cell Distribution Width 15.6 % (11.5-14.5) Platelet Count 110 x10^3/uL (140-400) Neutrophils (%) (Auto) 54 % (31-73) Lymphocytes (%) (Auto) 27 % (24-48) Monocytes (%) (Auto) 12 % (0-9) Eosinophils (%) (Auto) 6 % (0-3) Basophils (%) (Auto) 1 % (0-3) Neutrophils # (Auto) 2.6 x10^3uL (1.8-7.7) Lymphocytes # (Auto) 1.3 x10^3/uL (1.0-4.8) Monocytes # (Auto) 0.5 x10^3/uL (0.0-1.1) Eosinophils # (Auto) 0.3 x10^3/uL (0.0-0.7) Basophils # (Auto) 0.0 x10^3/uL (0.0-0.2) Sodium Level 142 mmol/L (136-145) Potassium Level 3.8 mmol/L (3.5-5.1) Chloride Level 111 mmol/L (98-107) Carbon Dioxide Level 23 mmol/L (21-32) Anion Gap 8 (6-14) Blood Urea Nitrogen 16 mg/dL (7-20) Creatinine 1.0 mg/dL (0.6-1.0) Estimated GFR (Cockcroft-Gault) 55.3 Glucose Level 85 mg/dL (70-99) Calcium Level 8.3 mg/dL (8.5-10.1) Laboratory Tests Test 07/10/16 16:15 07/11/16 03:28 White Blood Count 6.2 x10^3/uL (4.0-11.0) 4.7 x10^3/uL (4.0-11.0) Red Blood Count 3.75 x10^6/uL (3.50-5.40) 3.32 x10^6/uL (3.50-5.40) Hemoglobin 11.2 g/dL (12.0-15.5) 10.1 g/dL (12.0-15.5) Hematocrit 33.5 % (36.0-47.0) 29.8 % (36.0-47.0) Mean Corpuscular Volume 89 fL (79-100) 90 fL (79-100) Mean Corpuscular Hemoglobin 30 pg (25-35) 30 pg (25-35) Mean Corpuscular Hemoglobin Concent 34 g/dL (31-37) 34 g/dL (31-37) Red Cell Distribution Width 15.4 % (11.5-14.5) 15.6 % (11.5-14.5) Platelet Count 134 x10^3/uL (140-400) 110 x10^3/uL (140-400) Neutrophils (%) (Auto) 56 % (31-73) 54 % (31-73) Lymphocytes (%) (Auto) 28 % (24-48) 27 % (24-48) Monocytes (%) (Auto) 11 % (0-9) 12 % (0-9) Eosinophils (%) (Auto) 5 % (0-3) 6 % (0-3) Basophils (%) (Auto) 1 % (0-3) 1 % (0-3) Neutrophils # (Auto) 3.4 x10^3uL (1.8-7.7) 2.6 x10^3uL (1.8-7.7) Lymphocytes # (Auto) 1.7 x10^3/uL (1.0-4.8) 1.3 x10^3/uL (1.0-4.8) Monocytes # (Auto) 0.7 x10^3/uL (0.0-1.1) 0.5 x10^3/uL (0.0-1.1) Eosinophils # (Auto) 0.3 x10^3/uL (0.0-0.7) 0.3 x10^3/uL (0.0-0.7) Basophils # (Auto) 0.0 x10^3/uL (0.0-0.2) 0.0 x10^3/uL (0.0-0.2) Sodium Level 142 mmol/L (136-145) Potassium Level 3.8 mmol/L (3.5-5.1) Chloride Level 111 mmol/L (98-107) Carbon Dioxide Level 23 mmol/L (21-32) Anion Gap 8 (6-14) Blood Urea Nitrogen 16 mg/dL (7-20) Creatinine 1.0 mg/dL (0.6-1.0) Estimated GFR (Cockcroft-Gault) 55.3 Glucose Level 85 mg/dL (70-99) Calcium Level 8.3 mg/dL (8.5-10.1) Medications Current Medications Sodium Chloride 1,000 ml @ 1,000 mls/hr 1X ONCE IV Last administered on 10:09; Start 07/10/16 at 10:00; Stop 07/10/16 at 10:59; Status DC Famotidine (Pepcid) 20 mg 1X ONCE IVP Last administered on 07/10/16 10:12; Start 07/10/16 at 10:00; Stop 07/10/16 at 10:01; Status DC Ondansetron HCl (Zofran) 4 mg 1X ONCE IV Last administered on 07/10/16 10:11 ; Start 07/10/16 at 10:00; Stop 07/10/16 at 10:01; Status DC Ondansetron HCl (Zofran) 4 mg PRN Q8HRS PRN IV NAUSEA/VOMITING; Start 07/10/16 at 12:45; Stop 07/11/16 at 12:44 Fentanyl Citrate (Fentanyl 2ml Vial) 50 mcg PRN Q2HR PRN IV PAIN; Start at 12:45; Stop 07/11/16 at 12:44 Pantoprazole Sodium 80 mg/ Sodium Chloride 100 ml @ 10 mls/hr 1X ONCE IV Last administered on 07/10/16 13:13; Start 07/10/16 at 13:00; Stop 07/10/16 at 22:59; Status DC Sodium Chloride 1,000 ml @ 75 mls/hr 1X ONCE IV Last administered on 13:17; Start 07/10/16 at 12:45; Stop 07/11/16 at 02:04; Status DC Pantoprazole Sodium (Protonix Vial) 40 mg DAILYAC IVP Last administered on 07/11 07:08; Start 07/11/16 at 07:30; Stop 07/11/16 at 10:12; Status DC Levothyroxine Sodium (Synthroid) 25 mcg DAILYAC PO Last administered on 07:08; Start 07/11/16 at 07:30 Zolpidem Tartrate (Ambien) 5 mg PRN QHS PRN PO INSOMNIA; Start 07/10/16 at 21: 00 Acetaminophen (Tylenol) 650 mg PRN Q6HRS PRN PO pain Last administered on 21:27; Start 07/10/16 at 21:30 Pantoprazole Sodium (Protonix) 40 mg DAILYAC PO ; Start 07/12/16 at 07:30 Active Scripts Active Reported Levothyroxine Sodium 25 Mcg Tablet 25 Mcg PO DAILYAC Ambien (Zolpidem Tartrate) 10 Mg Tablet 1 Tab PO PRN QHS PRN Amlodipine Besylate 5 Mg Tablet 5 Mg PO DAILY Vitals/I & O Vital Sign - Last 24 Hours 07/10/16 07/10/16 07/10/16 07/10/16 11:52 12:22 12:52 13:50 Temp 97.9 97.9 Pulse 64 62 62 70 Resp 17 17 18 18 B/P (MAP) 113/53 (73) 113/56 (75) 111/52 (71) 124/48 (73) Pulse Ox 94 97 99 94 O2 Delivery Room Air Room Air Room Air Room Air 07/10/16 07/10/16 07/10/16 07/10/16 13:50 14:00 15:00 19:46 Temp 97.9 97.9 98.1 97.9 97.9 98.1 Pulse 70 65 67 Resp 18 18 16 B/P (MAP) 124/48 (73) 113/46 (68) 107/62 (77) Pulse Ox 94 94 93 O2 Delivery Room Air Room Air Room Air Room Air 07/10/16 07/10/16 07/11/16 07/11/16 20:00 23:15 03:14 07:25 Temp 97.7 97.8 97.9 97.7 97.8 97.9 Pulse 69 71 65 Resp 16 16 20 B/P (MAP) 104/54 (71) 114/53 (73) 126/59 (81) Pulse Ox 91 90 92 O2 Delivery Room Air Room Air Room Air Room Air 07/11/16 07/11/16 08:00 11:00 Temp 97.9 97.9 Pulse 68 Resp 18 B/P (MAP) 120/49 (72) Pulse Ox 92 O2 Delivery Room Air Room Air Intake and Output 07/10/16 07/10/16 07/11/16 15:00 23:00 07:00 Intake Total 1000 ml 600 ml 110 ml Balance 1000 ml 600 ml 110 ml OLIVIA VALENTE III DO July 11, 2016 11:20
[2016-07-12] MEDS ORDERED: PANTOPRAZOLE 40 MG TABLET.DR. PO SCH (07:30)
== END 2016-07-11 12:02 | disposition home or self-care (01) | DRG 392 ==
LOC: ER 09:36 → ED HOLD 10:46 → 6 SOUTH 13:15
PROVIDERS: ADMIT Internal Medicine; ATTEND Internal Medicine
DX: K57.90 Diverticulosis of intestine, part unspecified, without perforation or abscess without bleeding (principal); D64.9 Anemia, unspecified; I10 Essential (primary) hypertension; I73.00 Raynaud's syndrome without gangrene; Z88.6 Allergy status to analgesic agent; Z88.2 Allergy status to sulfonamides; Z83.3 Family history of diabetes mellitus
CPT/HCPCS: 36415; 78278; 80048; 80053; 81001; 82274; 83690; 85027; 85610; 85730; 86850; 86900; 86901; 96374; A9560; C9113; J2405; J7030; S0028

== ENCOUNTER → 2017-12-11 | Outpatient (CLI) | payer MEDICARE ==
[~2017-12-11] MED LIST changes: -AMLO5TAB2 PO; +AMLO5TAB7 PO; +LEVO25TA4 PO; -TRAM-29 PO; +TRAM-48 PO
[2017-12-11 14:21] LABS: BASE EXCESS ABG -3 mmol/L (-3-3); HCO3 ABG 21 mmol/L (21-28); PCO2 ABG 31 mmHg (35-46); PO2 ABG 52 mmHg (65-108); SAT O2 ABG 85 % (92-99)
[2017-12-11 14:22] LABS: FIO2 ABG 21
== END | disposition home or self-care (01) ==
LOC: LAB 13:30
PROVIDERS: ATTEND Internal Medicine Pulmonary Disease
DX: R06.00 Dyspnea, unspecified (principal)
CPT/HCPCS: 36600; 82805

== ENCOUNTER 2017-12-18 11:01 | Inpatient (IN) | payer MEDICARE ==
[~2017-12-18] VITALS: Ht 152.4 cm; Wt 84.9 kg
[2017-12-18 12:18] LABS: BASO % 1 % (0-3); EOS # 0.2 x10^3/uL (0.0-0.7); EOS % 4 % (0-3); HEMATOCRIT 44.3 % (36.0-47.0); HEMOGLOBIN 14.7 g/dL (12.0-15.5); LYMPH # 0.5 x10^3/uL (1.0-4.8); LYMPH % 11 % (24-48); MEAN CORPUSCULAR HEMOGLOBIN 31 pg (25-35); MEAN CORPUSCULAR HGB CONC 33 g/dL (31-37); MEAN CORPUSCULAR VOLUME 92 fL (79-100); MONO # 0.7 x10^3/uL (0.0-1.1); MONO % 15 % (0-9); NEUT # 3.1 x10^3uL (1.8-7.7); NEUT % 69 % (31-73); PLATELET COUNT 190 x10^3/uL (140-400); RED BLOOD COUNT 4.82 x10^6/uL (3.50-5.40); WHITE BLOOD COUNT 4.5 x10^3/uL (4.0-11.0)
[2017-12-18 12:26] LABS: BILIRUBIN,URINE NEGATIVE (NEG); CLARITY,URINE CLEAR; COLOR,URINE YELLOW; NITRITE,URINE NEGATIVE (NEG); PROTEIN,URINE NEGATIVE (NEG-TRACE); UROBILINOGEN,URINE 0.2 mg/dL (0.2 mg/dL)
[2017-12-18 12:27] LABS: CALCIUM 8.9 mg/dL (8.5-10.1); CREATININE 0.8 mg/dL (0.6-1.0); GFR 71.3
[2017-12-18 12:32] LABS: ALBUMIN 2.9 g/dL (3.4-5.0); ALBUMIN/GLOBULIN RATIO 0.6 (1.0-1.7); MAGNESIUM 1.8 mg/dL (1.8-2.4); TOTAL BILIRUBIN 1.6 mg/dL (0.2-1.0); TOTAL PROTEIN 8.1 g/dL (6.4-8.2)
--- NOTE | 2017-12-18 12:35 | PHYS DOC ---
Past Medical History Past Medical History: Hypertension, Other Additional Past Medical Histor: CREST, RAYNAUDS Past Surgical History: Appendectomy, Cholecystectomy, Hysterectomy, Other Additional Past Surgical Histo: BREAST REDUCTION, RIGHT FOOT SURGERY Alcohol Use: Rarely Drug Use: None Adult General Chief Complaint Chief Complaint: LOWER EXTREMITY SWELLING HPI HPI 67-year-old female presenting to the emergency department today with bilateral leg pain with worsening shortness of breath. She's been seen a records tech in clinic who is been increasing her oxygen at home and currently is at 3 L at home. She has a sharp pain in both legs feeling both of them being swollen over the past week. She denies fevers or chills. Pain is 4 out of 10 and nonradiating. Past medical history: Raynaud's, crest syndrome, hypertension Surgical history: Bunionectomy, appendectomy, cholecystectomy, breast surgery foot surgery hysterectomy and a bladder surgery. Social history denies smoking drinking or IV drug use. Review of systems is negative for abdominal pain chest pain hemoptysis fevers or chills. All other review of systems is negative unless otherwise noted in history of present illness. ED course: 67-year-old female presenting the emergency department with shortness of breath hypoxia and bilateral leg swelling. On arrival she is afebrile mild elevation in blood pressure. Sats are 94% on 3 L. On examination she has mild crackles in the bases of the lungs. Abdomen is soft and nontender palpation. Legs show 3-4+ edema bilaterally. Nontender in the venous system. Blood work shows normal CBC. Chemistry panel shows elevated proBNP. Otherwise bilirubin mildly elevated. Alkaline phosphatase mildly elevated. Troponin negative. EKG reviewed by myself shows sinus rhythm with a regular rate. ST segments congruent. Not suggestive of ACS. General T-wave flattening which is nonspecific. Duplex ultrasounds bilaterally are negative. CT angiography shows no sign of pulmonary embolism. Patient has a small to moderate left pleural effusion and moderate fluid in the pelvis and abdomen without pneumoperitoneum. Her abdominal exam continues to be soft and nontender. Clinically she appears volume overloaded. We'll give her IV Lasix here in the emergency department. We' ll admit the patient the hospital to Dr. Stewart who accepts the patient admission. I placed a cardiology consultation. Kidney function is within normal limits. Impression: Volume overload, pulmonary effusion, ascites, edema, hypoxia Review of Systems Review of Systems SEE ABOVE. Current Medications Current Medications Current Medications Medications (Trade) Dose Ordered Sig/Denise Start Time Stop Time Status Last Admin Dose Admin Info (CONTRAST GIVEN -- Rx MONITORING) 1 each PRN DAILY PRN 12/18/17 13:00 12/20/17 12:59 Iohexol (Omnipaque 300 Mg/ml) 75 ml 1X ONCE 12/18/17 12:45 12/18/17 12:47 DC Allergies Allergies Allergies Coded Allergies Type Severity Reaction Last Updated Verified Sulfa (Sulfonamide Antibiotics) Allergy Severe Anaphylaxis 06/06/15 Yes codeine Allergy Mild NAUSEA 05/15/15 Yes Physical Exam Physical Exam SEE ABOVE Constitutional: Well developed, well nourished, no acute distress, non-toxic appearance. HENT: Normocephalic, atraumatic, bilateral external ears normal, oropharynx moist, no oral exudates, nose normal. [] Eyes: PERRLA, EOMI, conjunctiva normal, no discharge. [] Neck: Normal range of motion, no tenderness, supple, no stridor. [] Cardiovascular:Heart rate regular rhythm, no murmur [] Lungs & Thorax: ABOVE Abdomen: Bowel sounds normal, soft, no tenderness, no masses, no pulsatile masses. [] Skin: Warm, dry, no erythema, no rash. [] Back: No tenderness, no CVA tenderness. [] Extremities: no cyanosis, no clubbing, ROM intact. nvi in all extremities. Neurologic: Alert and oriented X 3, normal motor function, normal sensory function, no focal deficits noted. [] Psychologic: Affect normal, judgement normal, mood normal. [] Current Patient Data Vital Signs Vital Signs Date Time Temp Pulse Resp B/P (MAP) Pulse Ox O2 Delivery O2 Flow Rate FiO2 12/18/17 11:18 98.1 72 22 153/72 (99) 94 Nasal Cannula 3.0 98.1 Lab Values Laboratory Tests Test 12/18/17 11:20 12/18/17 12:15 White Blood Count 4.5 x10^3/uL (4.0-11.0) Red Blood Count 4.82 x10^6/uL (3.50-5.40) Hemoglobin 14.7 g/dL (12.0-15.5) Hematocrit 44.3 % (36.0-47.0) Mean Corpuscular Volume 92 fL (79-100) Mean Corpuscular Hemoglobin 31 pg (25-35) Mean Corpuscular Hemoglobin Concent 33 g/dL (31-37) Red Cell Distribution Width 16.0 % (11.5-14.5) H Platelet Count 190 x10^3/uL (140-400) Neutrophils (%) (Auto) 69 % (31-73) Lymphocytes (%) (Auto) 11 % (24-48) L Monocytes (%) (Auto) 15 % (0-9) H Eosinophils (%) (Auto) 4 % (0-3) H Basophils (%) (Auto) 1 % (0-3) Neutrophils # (Auto) 3.1 x10^3uL (1.8-7.7) Lymphocytes # (Auto) 0.5 x10^3/uL (1.0-4.8) L Monocytes # (Auto) 0.7 x10^3/uL (0.0-1.1) Eosinophils # (Auto) 0.2 x10^3/uL (0.0-0.7) Basophils # (Auto) 0.0 x10^3/uL (0.0-0.2) Sodium Level 136 mmol/L (136-145) Potassium Level 4.0 mmol/L (3.5-5.1) Chloride Level 99 mmol/L (98-107) Carbon Dioxide Level 27 mmol/L (21-32) Anion Gap 10 (6-14) Blood Urea Nitrogen 10 mg/dL (7-20) Creatinine 0.8 mg/dL (0.6-1.0) Estimated GFR (Cockcroft-Gault) 71.3 BUN/Creatinine Ratio 13 (6-20) Glucose Level 102 mg/dL (70-99) H Calcium Level 8.9 mg/dL (8.5-10.1) Magnesium Level 1.8 mg/dL (1.8-2.4) Total Bilirubin 1.6 mg/dL (0.2-1.0) H Aspartate Amino Transferase (AST) 63 U/L (15-37) H Alanine Aminotransferase (ALT) 44 U/L (14-59) Alkaline Phosphatase 245 U/L (46-116) H Troponin I Quantitative < 0.017 ng/mL (0.000-0.055) HP-Ruy-T-Type Natriuretic Peptide 1963 pg/mL (0-124) H Total Protein 8.1 g/dL (6.4-8.2) Albumin 2.9 g/dL (3.4-5.0) L Albumin/Globulin Ratio 0.6 (1.0-1.7) L Lipase 125 U/L (73-393) Urine Collection Type Void Urine Color Yellow Urine Clarity Clear Urine pH 6.0 Urine Specific [place] 1.010 Urine Protein Negative mg/dL (NEG-TRACE) Urine Glucose (UA) Negative mg/dL (NEG) Urine Ketones (Stick) Negative mg/dL (NEG) Urine Blood Negative (NEG) Urine Nitrite Negative (NEG) Urine Bilirubin Negative (NEG) Urine Urobilinogen Dipstick 0.2 mg/dL (0.2 mg/dL) Urine Leukocyte Esterase Trace (NEG) Urine RBC Occ /HPF (0-2) Urine WBC 1-4 /HPF (0-4) Urine Squamous Epithelial Cells Few /LPF Urine Bacteria Few /HPF (0-FEW) Laboratory Tests 12/18/17 11:20 Laboratory Tests 12/18/17 11:20 EKG EKG [] Radiology/Procedures Radiology/Procedures [] Course & Med Decision Making Course & Med Decision Making Pertinent Labs and Imaging studies reviewed. (See chart for details) [] Dragon Disclaimer Dragon Disclaimer This electronic medical record was generated, in whole or in part, using a voice recognition dictation system. Departure Departure Disposition: 09 ADMITTED INPATIENT Admitting Physician: Xie. Goldberg Condition: STABLE Referrals: ABRAHAM PAUL Jr, MD (PCP) SHARON PATINO MD Dec 18, 2017 12:35
[2017-12-18] MEDS ORDERED: IOHEXOL 300 MG/ML 100ML VIAL. IV ONE (12:45)
[2017-12-18 12:50] LABS: RBC,URINE OCC /HPF (0-2)
[2017-12-18 12:51] LABS: BACTERIA,URINE FEW /HPF (0-FEW); SQUAMOUS EPITHELIAL CELL,UR FEW /LPF
--- NOTE | 2017-12-18 12:53 | RAD ---
Bilateral lower extremity venous Doppler dated 12/18/2017. No comparison available. Clinical data indication: Leg swelling. FINDINGS: Grayscale, color-flow and spectral waveform analysis performed to include the deep venous system of both lower extremity. Normal compressibility, phasicity and augmentation of flow throughout. No filling defects are seen. IMPRESSION:. No evidence of lower extremity deep vein thrombosis. Electronically signed by: Cheo Renteria MD (12/18/2017 12:50 PM) [id number]
[2017-12-18] MEDS ORDERED: CONTRAST GIVEN. MC PRN (13:00)
--- NOTE | 2017-12-18 13:25 | EKG ---
[facility] [address] [place] [address] Test Date: 2017-12-18 Test Time: 12:10:33 Pat Name: MARY GRACE MESSINA Department: Room: Gender: F Specialist Icu: : 1950 Requested By: SHARON PATINO Order Number: [id number] Reading MD: Scottie Naranjo MD Measurements Intervals [place] Rate: 63 P: 29 MD: 154 QRS: 133 QRSD: 82 T: -5 QT: 380 QTc: 392 Interpretive Statements SINUS RHYTHM LIMB LEAD MISPLACEMENT NON-SPECIFIC ST/T CHANGES Electronically Signed On 12-19-2017 13:47:06 CDT by Scottie Naranjo MD
--- NOTE | 2017-12-18 13:28 | RAD ---
Chest CTA; CT abdomen pelvis with contrast Indication: Shortness of breath, increasing abdominal distention Technique: Post contrast CT imaging was performed of the chest, abdomen, pelvis, multiplanar reconstruction images to include MIP reconstruction images of the chest are submitted submitted. One or more of the following individualized dose reduction techniques were utilized for this examination: 1. Automated exposure control 2. Adjustment of the mA and/or kV according to patient size 3. Use of iterative reconstruction technique. Comparison: None Chest CTA: Findings: There is [id number] dependent left pleural effusion, no right pleural effusion. More distal pulmonary arteries are not as fully opacified with contrast for accurate evaluation, no central pulmonary embolism identified. Thoracic aortic caliber is within normal limits. There is mild distention of the esophagus. No significantly enlarged nodes are identified of the chest. Heart is somewhat prominent. There is a small quantity of pericardial fluid. There is reflux of contrast into the hepatic veins. IMPRESSION: 1. There is [id number] left pleural effusion. No central pulmonary embolism is identified, somewhat limited evaluation of the distal pulmonary arteries on this exam. There is reflux of contrast into the hepatic veins and somewhat enlarged heart, constellation findings which may be seen with heart failure. Abdomen and pelvis: FINDINGS: There is moderate free fluid in the pelvis and to lesser degree in the abdomen. There is diffuse body wall edema, also mesenteric edema. Both kidneys enhance, no hydronephrosis. There is probable slightly nodular margin of the liver. Liver is small in size. Spleen is not enlarged. Main portal vein appears narrowed although at least partially patent. There is no adrenal nodularity. There has been cholecystectomy. There is some free fluid tracking into umbilical hernia. Bowel is not significantly dilated. No free air is identified. There is diverticulosis greatest of the sigmoid colon. There is multilevel lumbar facet degenerative change. There is grade 1 anterior spondylolisthesis L4-5. There is multilevel lumbar degenerative disc disease. There is at least moderate spinal stenosis L4-5. There is multilevel lumbar neural foramina compromise. There is mild lumbar levoscoliosis. There is scattered atherosclerotic calcification abdominal aorta and iliac arteries. IMPRESSION: 1. There is moderate free fluid in the pelvis and to lesser degree in the abdomen, also diffuse body wall and mesenteric edema. Liver is small with likely nodular margin suggestive of cirrhosis. Main portal vein appears narrowed although likely at least partially patent. Spleen is not significantly enlarged. 2. There is colonic diverticulosis. Electronically signed by: Mich Cabrera MD (12/18/2017 1:24 PM) [id number]
--- NOTE | 2017-12-18 13:28 | RAD ---
Chest CTA; CT abdomen pelvis with contrast Indication: Shortness of breath, increasing abdominal distention Technique: Post contrast CT imaging was performed of the chest, abdomen, pelvis, multiplanar reconstruction images to include MIP reconstruction images of the chest are submitted submitted. One or more of the following individualized dose reduction techniques were utilized for this examination: 1. Automated exposure control 2. Adjustment of the mA and/or kV according to patient size 3. Use of iterative reconstruction technique. Comparison: None Chest CTA: Findings: There is gztqu-vf-abunbpen dependent left pleural effusion, no right pleural effusion. More distal pulmonary arteries are not as fully opacified with contrast for accurate evaluation, no central pulmonary embolism identified. Thoracic aortic caliber is within normal limits. There is mild distention of the esophagus. No significantly enlarged nodes are identified of the chest. Heart is somewhat prominent. There is a small quantity of pericardial fluid. There is reflux of contrast into the hepatic veins. IMPRESSION: 1. There is yqrxc-vq-psejiuyl left pleural effusion. No central pulmonary embolism is identified, somewhat limited evaluation of the distal pulmonary arteries on this exam. There is reflux of contrast into the hepatic veins and somewhat enlarged heart, constellation findings which may be seen with heart failure. Abdomen and pelvis: FINDINGS: There is moderate free fluid in the pelvis and to lesser degree in the abdomen. There is diffuse body wall edema, also mesenteric edema. Both kidneys enhance, no hydronephrosis. There is probable slightly nodular margin of the liver. Liver is small in size. Spleen is not enlarged. Main portal vein appears narrowed although at least partially patent. There is no adrenal nodularity. There has been cholecystectomy. There is some free fluid tracking into umbilical hernia. Bowel is not significantly dilated. No free air is identified. There is diverticulosis greatest of the sigmoid colon. There is multilevel lumbar facet degenerative change. There is grade 1 anterior spondylolisthesis L4-5. There is multilevel lumbar degenerative disc disease. There is at least moderate spinal stenosis L4-5. There is multilevel lumbar neural foramina compromise. There is mild lumbar levoscoliosis. There is scattered atherosclerotic calcification abdominal aorta and iliac arteries. IMPRESSION: 1. There is moderate free fluid in the pelvis and to lesser degree in the abdomen, also diffuse body wall and mesenteric edema. Liver is small with likely nodular margin suggestive of cirrhosis. Main portal vein appears narrowed although likely at least partially patent. Spleen is not significantly enlarged. 2. There is colonic diverticulosis. Electronically signed by: Mich Cabrera MD (12/18/2017 1:24 PM) [id number]
[2017-12-18] MEDS ORDERED: ONDANSETRON PF 4 MG/2 ML VIAL. IV PRN ×2 (13:45→14:30)
[2017-12-18] MEDS ORDERED: FUROSEMIDE 40 MG/4 ML VIAL. IVP ONE (13:45)
[2017-12-18] MEDS ORDERED: LABETALOL 20 MG/4 ML DISP.SYRIN. IVP PRN (14:30)
[2017-12-18] MEDS ORDERED: DOCUSATE SODIUM 100 MG CAPSULE. PO PRN (14:30)
[2017-12-18] MEDS ORDERED: ALBUTEROL SULFATE 2.5 MG/3 ML NEBU. NEB PRN (14:30)
--- NOTE | 2017-12-18 14:31 | PDOC1 ---
History and Physical Date of Admission Date of Admission 12/18/17 Identification/Chief Complaint Chief Complaint bl leg edema, abd distension Source Source: Chart review, Patient History of Present Illness History of Present Illness 67-year-old female presenting to the emergency department today with bilateral leg edema for 2 days. pt is not a smoker, has CREST syndrome, cirrhosis, varices s/p banding. She said she knows she has ascites, but much worse in the past 2 days. denies abd pain, N/V, has intermittent diarrhea, said PCP check BM it was normal. last loose/watery BM was yesterday. She feels abd severe distended. She also feels bl feet edema for 2 ds, up to bl legs, no pain. She has intermittent sob, but not on home o2 till this Thursday when she saw her pulm dr. Garcia? who did CXR and found pleural effusion and add home o2 at 3L now. no fever, has chills. no chest pain. CTA neg for PE, mild to moderate left pleural effusion, bl dvt neg. Abd CT showed ascites and cirrhosis. Pt cannot tell me how she got cirrhosis. BNP 1900. Past medical history: Raynaud's, crest syndrome, hypertension Surgical history: Bunionectomy, appendectomy, cholecystectomy, breast surgery foot surgery hysterectomy and a bladder surgery. Social history denies smoking drinking or IV drug use. Past Medical History Past Medical History Hypertension, Other Additional Past Medical Histor: CREST, RAYNAUDS Past Surgical History Past Surgical History Appendectomy, Cholecystectomy, Hysterectomy, Other Additional Past Surgical Histo: BREAST REDUCTION, RIGHT FOOT SURGERY Family History Family History: Hypertension Social History Smoke: No ALCOHOL: none Drugs: None Current Medications Current Medications Current Medications Medications (Trade) Dose Ordered Sig/Denise Start Time Stop Time Status Last Admin Dose Admin Furosemide (Lasix) 40 mg 1X ONCE 12/18/17 13:45 12/18/17 13:47 DC Info (CONTRAST GIVEN -- Rx MONITORING) 1 each PRN DAILY PRN 12/18/17 13:00 12/20/17 12:59 Iohexol (Omnipaque 300 Mg/ml) 75 ml 1X ONCE 12/18/17 12:45 12/18/17 12:47 DC Ondansetron HCl (Zofran) 4 mg PRN Q8HRS PRN 12/18/17 13:45 12/19/17 13:44 Allergies Allergies Allergies Coded Allergies Type Severity Reaction Last Updated Verified Sulfa (Sulfonamide Antibiotics) Allergy Severe Anaphylaxis 06/06/15 Yes codeine Allergy Mild NAUSEA 05/15/15 Yes ROS Review of System CONSTITUTIONAL: No fever or chills EYES: No recent changes SKIN: No rash or itching CARDIOVASCULAR: No chest pain, syncope, palpitations, or edema RESPIRATORY: No SOB or cough GASTROINTESTINAL: No nausea, vomiting or abdominal pain NEUROLOGICAL: No headaches or weakness ENDOCRINE: No cold or heat intolerance GENITOURINARY: No urgency or frequency of urination MUSCULOSKELETAL: No back pain or joint pain LYMPHATICS: No enlarged lymph nodes PSYCHIATRIC: No anxiety or depression Physical Exam Physical Exam GEN.: No apparent distress. Alert and oriented. HEENT: Head is normocephalic, atraumatic NECK: Supple. LUNGS: bl mild decreased bs HEART: RRR, S1, S2 present. Peripheral pulses intact ABDOMEN: Soft, nontender. decreased bowel sounds. moderate distended. EXTREMITIES: Without any cyanosis. bl leg 1+ edema up to upper leg. NEUROLOGIC: Normal speech, normal tone PSYCHIATRIC: Normal affect, normal mood. SKIN: No ulcerations Vitals Vitals Vital Signs Date Time Temp Pulse Resp B/P (MAP) Pulse Ox O2 Delivery O2 Flow Rate FiO2 12/18/17 14:07 66 20 171/70 (103) 100 12/18/17 11:18 98.1 Nasal Cannula 3.0 98.1 Labs Labs Laboratory Tests Test 12/18/17 11:20 12/18/17 12:15 White Blood Count 4.5 x10^3/uL (4.0-11.0) Red Blood Count 4.82 x10^6/uL (3.50-5.40) Hemoglobin 14.7 g/dL (12.0-15.5) Hematocrit 44.3 % (36.0-47.0) Mean Corpuscular Volume 92 fL (79-100) Mean Corpuscular Hemoglobin 31 pg (25-35) Mean Corpuscular Hemoglobin Concent 33 g/dL (31-37) Red Cell Distribution Width 16.0 % (11.5-14.5) Platelet Count 190 x10^3/uL (140-400) Neutrophils (%) (Auto) 69 % (31-73) Lymphocytes (%) (Auto) 11 % (24-48) Monocytes (%) (Auto) 15 % (0-9) Eosinophils (%) (Auto) 4 % (0-3) Basophils (%) (Auto) 1 % (0-3) Neutrophils # (Auto) 3.1 x10^3uL (1.8-7.7) Lymphocytes # (Auto) 0.5 x10^3/uL (1.0-4.8) Monocytes # (Auto) 0.7 x10^3/uL (0.0-1.1) Eosinophils # (Auto) 0.2 x10^3/uL (0.0-0.7) Basophils # (Auto) 0.0 x10^3/uL (0.0-0.2) Sodium Level 136 mmol/L (136-145) Potassium Level 4.0 mmol/L (3.5-5.1) Chloride Level 99 mmol/L (98-107) Carbon Dioxide Level 27 mmol/L (21-32) Anion Gap 10 (6-14) Blood Urea Nitrogen 10 mg/dL (7-20) Creatinine 0.8 mg/dL (0.6-1.0) Estimated GFR (Cockcroft-Gault) 71.3 BUN/Creatinine Ratio 13 (6-20) Glucose Level 102 mg/dL (70-99) Calcium Level 8.9 mg/dL (8.5-10.1) Magnesium Level 1.8 mg/dL (1.8-2.4) Total Bilirubin 1.6 mg/dL (0.2-1.0) Aspartate Amino Transf (AST/SGOT) 63 U/L (15-37) Alanine Aminotransferase (ALT/SGPT) 44 U/L (14-59) Alkaline Phosphatase 245 U/L (46-116) Troponin I Quantitative < 0.017 ng/mL (0.000-0.055) MK-Gbp-M-Type Natriuretic Peptide 1963 pg/mL (0-124) Total Protein 8.1 g/dL (6.4-8.2) Albumin 2.9 g/dL (3.4-5.0) Albumin/Globulin Ratio 0.6 (1.0-1.7) Lipase 125 U/L (73-393) Urine Collection Type Void Urine Color Yellow Urine Clarity Clear Urine pH 6.0 Urine Specific [place] 1.010 Urine Protein Negative mg/dL (NEG-TRACE) Urine Glucose (UA) Negative mg/dL (NEG) Urine Ketones (Stick) Negative mg/dL (NEG) Urine Blood Negative (NEG) Urine Nitrite Negative (NEG) Urine Bilirubin Negative (NEG) Urine Urobilinogen Dipstick 0.2 mg/dL (0.2 mg/dL) Urine Leukocyte Esterase Trace (NEG) Urine RBC Occ /HPF (0-2) Urine WBC 1-4 /HPF (0-4) Urine Squamous Epithelial Cells Few /LPF Urine Bacteria Few /HPF (0-FEW) Laboratory Tests Test 12/18/17 11:20 12/18/17 12:15 White Blood Count 4.5 x10^3/uL (4.0-11.0) Red Blood Count 4.82 x10^6/uL (3.50-5.40) Hemoglobin 14.7 g/dL (12.0-15.5) Hematocrit 44.3 % (36.0-47.0) Mean Corpuscular Volume 92 fL (79-100) Mean Corpuscular Hemoglobin 31 pg (25-35) Mean Corpuscular Hemoglobin Concent 33 g/dL (31-37) Red Cell Distribution Width 16.0 % (11.5-14.5) Platelet Count 190 x10^3/uL (140-400) Neutrophils (%) (Auto) 69 % (31-73) Lymphocytes (%) (Auto) 11 % (24-48) Monocytes (%) (Auto) 15 % (0-9) Eosinophils (%) (Auto) 4 % (0-3) Basophils (%) (Auto) 1 % (0-3) Neutrophils # (Auto) 3.1 x10^3uL (1.8-7.7) Lymphocytes # (Auto) 0.5 x10^3/uL (1.0-4.8) Monocytes # (Auto) 0.7 x10^3/uL (0.0-1.1) Eosinophils # (Auto) 0.2 x10^3/uL (0.0-0.7) Basophils # (Auto) 0.0 x10^3/uL (0.0-0.2) Sodium Level 136 mmol/L (136-145) Potassium Level 4.0 mmol/L (3.5-5.1) Chloride Level 99 mmol/L (98-107) Carbon Dioxide Level 27 mmol/L (21-32) Anion Gap 10 (6-14) Blood Urea Nitrogen 10 mg/dL (7-20) Creatinine 0.8 mg/dL (0.6-1.0) Estimated GFR (Cockcroft-Gault) 71.3 BUN/Creatinine Ratio 13 (6-20) Glucose Level 102 mg/dL (70-99) Calcium Level 8.9 mg/dL (8.5-10.1) Magnesium Level 1.8 mg/dL (1.8-2.4) Total Bilirubin 1.6 mg/dL (0.2-1.0) Aspartate Amino Transf (AST/SGOT) 63 U/L (15-37) Alanine Aminotransferase (ALT/SGPT) 44 U/L (14-59) Alkaline Phosphatase 245 U/L (46-116) Troponin I Quantitative < 0.017 ng/mL (0.000-0.055) JH-Ytl-C-Type Natriuretic Peptide 1963 pg/mL (0-124) Total Protein 8.1 g/dL (6.4-8.2) Albumin 2.9 g/dL (3.4-5.0) Albumin/Globulin Ratio 0.6 (1.0-1.7) Lipase 125 U/L (73-393) Urine Collection Type Void Urine Color Yellow Urine Clarity Clear Urine pH 6.0 Urine Specific [place] 1.010 Urine Protein Negative mg/dL (NEG-TRACE) Urine Glucose (UA) Negative mg/dL (NEG) Urine Ketones (Stick) Negative mg/dL (NEG) Urine Blood Negative (NEG) Urine Nitrite Negative (NEG) Urine Bilirubin Negative (NEG) Urine Urobilinogen Dipstick 0.2 mg/dL (0.2 mg/dL) Urine Leukocyte Esterase Trace (NEG) Urine RBC Occ /HPF (0-2) Urine WBC 1-4 /HPF (0-4) Urine Squamous Epithelial Cells Few /LPF Urine Bacteria Few /HPF (0-FEW) VTE Prophylaxis Ordered VTE Prophylaxis Devices: Yes VTE Pharmacological Prophylaxi: Yes Assessment/Plan Assessment/Plan fluid overloaded, 2/2 cirrhosis vs CHF h/o Cirrhosis wo clear etiology h/o varices s/p banding accelerated HTN CHRONIC resp failure with left side moderate pleural effusion ascites with cirrhosis CREST dz Raynaulds morbid obesity mild malnutrition plan: card, pulm, GI consult may need thoracentesis, paracentesis cardiac diet , NPO MN incase procedure lasix 40mg iv x1 in ER, cont 40mg po daily. check INR, TSH, ECHO cont home meds for now dvt ppx NC as needed, albuterol prn HILDA FRYE MD Dec 18, 2017 14:31
[2017-12-18 14:43] LABS: CHOLESTEROL/HDL RATIO 3.7
[2017-12-18 14:53] LABS: PROTHROMBIN TIME PATIENT 13.6 SEC (11.7-14.0)
[2017-12-18 15:00] VITALS: BP 134/67
[2017-12-18] MEDS ORDERED: amLODIPine BESYLATE 5 MG TABLET PO SCH (15:00)
--- NOTE | 2017-12-18 15:07 | PDOC2 ---
WILFRID LOPEZ [employer] INTELLIGENCE OFFICER CHIEF 12/18/17 1507: CARDIAC CONSULT DATE OF CONSULT Date of Consult DATE: 12/18/17 TIME: 14:54 REASON FOR CONSULT Reason for Consult: CHF REFERRING PHYSICIAN Referring Physician: Carmen SOURCE Source: Chart review, Patient HISTORY OF PRESENT ILLNESS HISTORY OF PRESENT ILLNESS This is a pleasant 67 yo female admitted for complains of SOA. Reports that in the last 3 weeks she has been having progressive leg edema and SOA. Last Thursday she went to her PCP and was sent for ABG but did not get admitted. This is to confirm that she needs oxygen and this was arranged as her O2 sat was noted in the 80s. Despite this she felt that she remains SOA and felt pressure in the lower chest like a band around her upper waist. She has been having intermittent loose stools but no nausea and vomiting. Her abd feels distended and her appetite has decreased but has been hydrating herself adequately. Her urine has turned to dark yellow. Denies any abdominal pain per se but feels bloated. Denies any palpitations but has been having sensation of dizziness in the las few days. 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 She has been using O2 3LPM since Thursday. Her DENG has progressed to rest. No prior hx of CAD, VTE, or arrhythmias. PAST MEDICAL HISTORY Cardiovascular: HTN Pulmonary: No pertinent hx CENTRAL NERVOUS SYSTEM: Other (No pertinent history) GI: Diverticulosis, GERD, GI bleed Heme/Onc: Anemia NOS Hepatobiliary: Cirrhosis Psych: No pertinent hx Musculoskeletal: Osteoarthritis Rheumatologic: Other (CREST syndrome) Infectious disease: No pertinent hx ENT: No pertinent hx Renal/: No pertinent hx Endocrine: Hypothyroidism Dermatology: No pertinent hx PAST SURGICAL HISTORY Past Surgical History: Appendectomy, Cholecystectomy, Tonsillectomy, Hysterectomy, Other (EGD; breast reduction, right foot surgery) FAMILY HISTORY Family History: Coronary Artery Disease (mother), Hypertension SOCIAL HISTORY Smoke: No ALCOHOL: none Drugs: None Lives: with Family CURRENT MEDICATIONS CURRENT MEDICATIONS Current Medications Medications (Trade) Dose Ordered Sig/Denise Route PRN Reason Start Time Stop Time Status Last Admin Dose Admin Furosemide (Lasix) 40 mg 1X ONCE IVP 12/18/17 13:45 12/18/17 13:47 DC 12/18/17 14:28 ALLERGIES ALLERGIES: Coded Allergies: Sulfa (Sulfonamide Antibiotics) (Verified Allergy, Severe, Anaphylaxis, 06/06/15) codeine (Verified Allergy, Mild, NAUSEA, 05/15/15) ROS Review of System 14 point ROS evaluated with pertinent positives noted per HPI PHYSICAL EXAM General: Alert, Oriented X3, Cooperative, No acute distress HEENT: Atraumatic, Mucous membr. moist/pink Lungs: Other (basilar crackles) Heart: Regular rate (SR), Normal S1, Normal S2, Other (2/6 systolic murmur to LLS border) Abdomen: Soft, Other (anasarca) Extremities: Other (3+ bilateral LE pitting edema) Skin: No breakdown, No significant lesion, Other (telangiectasia) Neuro: Normal speech, Sensation intact Psych/Mental Status: Mental status NL, Mood NL MUSCULOSKELETAL: Osteoarthritic changes both hands VITALS VITALS Vital Signs Date Time Temp Pulse Resp B/P (MAP) Pulse Ox O2 Delivery O2 Flow Rate FiO2 12/18/17 14:07 66 20 171/70 (103) 100 12/18/17 11:18 98.1 Nasal Cannula 3.0 98.1 LABS Lab: Laboratory Tests Test 12/18/17 11:20 12/18/17 12:15 White Blood Count 4.5 x10^3/uL (4.0-11.0) Red Blood Count 4.82 x10^6/uL (3.50-5.40) Hemoglobin 14.7 g/dL (12.0-15.5) Hematocrit 44.3 % (36.0-47.0) Mean Corpuscular Volume 92 fL (79-100) Mean Corpuscular Hemoglobin 31 pg (25-35) Mean Corpuscular Hemoglobin Concent 33 g/dL (31-37) Red Cell Distribution Width 16.0 % (11.5-14.5) Platelet Count 190 x10^3/uL (140-400) Neutrophils (%) (Auto) 69 % (31-73) Lymphocytes (%) (Auto) 11 % (24-48) Monocytes (%) (Auto) 15 % (0-9) Eosinophils (%) (Auto) 4 % (0-3) Basophils (%) (Auto) 1 % (0-3) Neutrophils # (Auto) 3.1 x10^3uL (1.8-7.7) Lymphocytes # (Auto) 0.5 x10^3/uL (1.0-4.8) Monocytes # (Auto) 0.7 x10^3/uL (0.0-1.1) Eosinophils # (Auto) 0.2 x10^3/uL (0.0-0.7) Basophils # (Auto) 0.0 x10^3/uL (0.0-0.2) Sodium Level 136 mmol/L (136-145) Potassium Level 4.0 mmol/L (3.5-5.1) Chloride Level 99 mmol/L (98-107) Carbon Dioxide Level 27 mmol/L (21-32) Anion Gap 10 (6-14) Blood Urea Nitrogen 10 mg/dL (7-20) Creatinine 0.8 mg/dL (0.6-1.0) Estimated GFR (Cockcroft-Gault) 71.3 BUN/Creatinine Ratio 13 (6-20) Glucose Level 102 mg/dL (70-99) Calcium Level 8.9 mg/dL (8.5-10.1) Magnesium Level 1.8 mg/dL (1.8-2.4) Total Bilirubin 1.6 mg/dL (0.2-1.0) Aspartate Amino Transf (AST/SGOT) 63 U/L (15-37) Alanine Aminotransferase (ALT/SGPT) 44 U/L (14-59) Alkaline Phosphatase 245 U/L (46-116) Troponin I Quantitative < 0.017 ng/mL (0.000-0.055) EV-Ncj-X-Type Natriuretic Peptide 1963 pg/mL (0-124) Total Protein 8.1 g/dL (6.4-8.2) Albumin 2.9 g/dL (3.4-5.0) Albumin/Globulin Ratio 0.6 (1.0-1.7) Triglycerides Level 62 mg/dL (0-150) Cholesterol Level 144 mg/dL (0-200) LDL Cholesterol, Calculated 93 mg/dL (0-100) VLDL Cholesterol, Calculated 12 mg/dL (0-40) Non-HDL Cholesterol Calculated 105 mg/dL (0-129) HDL Cholesterol 39 mg/dL (40-60) Cholesterol/HDL Ratio 3.7 Lipase 125 U/L (73-393) Thyroid Stimulating Hormone (TSH) 4.603 uIU/mL (0.358-3.74) Urine Collection Type Void Urine Color Yellow Urine Clarity Clear Urine pH 6.0 Urine Specific [place] 1.010 Urine Protein Negative mg/dL (NEG-TRACE) Urine Glucose (UA) Negative mg/dL (NEG) Urine Ketones (Stick) Negative mg/dL (NEG) Urine Blood Negative (NEG) Urine Nitrite Negative (NEG) Urine Bilirubin Negative (NEG) Urine Urobilinogen Dipstick 0.2 mg/dL (0.2 mg/dL) Urine Leukocyte Esterase Trace (NEG) Urine RBC Occ /HPF (0-2) Urine WBC 1-4 /HPF (0-4) Urine Squamous Epithelial Cells Few /LPF Urine Bacteria Few /HPF (0-FEW) ASSESSMENT/PLAN ASSESSMENT/PLAN 1. Acute CHF with possible diastolic dysfunction: suspect hepato cardio syndrome 2. Primary biliary cirrhosis?: has hx of CREST syndrome 3. Anasarca 4. Hx of GI bleed/anemia 5. Hypothyroidism: TSH not on goal. per PCP 6. HTN: labile Recommendations 1. lipids, TSH, and TTE. 2. Consult GI. 3. Restart home amlodipine. 4. Continue lasix therapy O2 supplement. VANI KENDALL MD 12/18/17 2326: CARDIAC CONSULT ASSESSMENT/PLAN ASSESSMENT/PLAN Pt. seen and examined. Agree with above INSURANCE CLAIMS ANALYST note with following comments: 67 y.o presenting with anasarca. No clear primary diagnosis noted. No obvious cirrhosis of the liver on imaging. Normal LV function but does have mild to moderate diastolic dysfunction but this would not lead to this degree of anasarca. She does have right ventricular dilation and pulmonary HTN but by CT scan she has no significant thrombo-embolic disease. ?primary lung pathology. Her BNP elevation is notable but likely secondary to pulm HTN DDx is broad including LUDMILA, primary lung process. Could consider RHC for further assessment as needed. Recommend pulmonary evaluation given possibility of systemic sclerosis leading to pulm HTN. Agree with diuresis as tolerated. WILFRID LOPEZ APRN Dec 18, 2017 15:07 VANI KENDALL MD Dec 18, 2017 18:36
--- NOTE | 2017-12-18 16:16 | PDOC2 ---
GI CONSULT HPI: HPI: This is a pleasant 67 yo female admitted for complains of SOA. Reports that in the last 3 weeks she has been having progressive leg edema and SOA. Last Thursday she went to her PCP and was sent for ABG but did not get admitted. This is to confirm that she needs oxygen and this was arranged as her O2 sat was noted in the 80s. Despite this she felt that she remains SOA and felt pressure in the lower chest like a band around her upper waist. She has been having intermittent loose stools but no nausea and vomiting. Her abd feels distended and her appetite has decreased but has been hydrating herself adequately. Her urine has turned to dark yellow. Denies any abdominal pain per se but feels bloated. Denies any palpitations but has been having sensation of dizziness in the las few days. 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 She has been using O2 3LPM since Thursday. Her DENG has progressed to rest. No prior hx of CAD, VTE, or arrhythmias. Past medical history: Raynaud's, crest syndrome, hypertension Surgical history: Bunionectomy, appendectomy, cholecystectomy, breast surgery foot surgery hysterectomy and a bladder surgery. Social history denies smoking drinking or IV drug use. Blood work shows normal CBC. Chemistry panel shows elevated proBNP. Otherwise bilirubin mildly elevated. Alkaline phosphatase mildly elevated. Troponin negative. EKG reviewed by myself shows sinus rhythm with a regular rate. ST segments congruent. Not suggestive of ACS. General T-wave flattening which is nonspecific. Duplex ultrasounds bilaterally are negative. CT angiography shows no sign of pulmonary embolism. Patient has a small to moderate left pleural effusion and moderate fluid in the pelvis and abdomen without pneumoperitoneum.. Clinically she appears volume overloaded. She was given IV Lasix in the emergency department. PMH: PMH: Hypertension, CREST syndrome, appendectomy, cholecystectomy, hysterectomy FH: Family History: Cancer Social History: Smoke: No ALCOHOL: none Drugs: None ROS: GEN: Denies fevers, chills, sweats HEENT: Denies blurred vision, sore throat CV: Denies chest pain RESP: + shortness of air, denies cough GI: Per HPI : Denies hematuria, dysuria ENDO: Denies weight changes NEURO: Denies confusion, dizziness MSK: Denies weakness, joint pain/swelling SKIN: Denies jaundice, pruritus Vitals: Vitals: Vital Signs Date Time Temp Pulse Resp B/P (MAP) Pulse Ox O2 Delivery O2 Flow Rate FiO2 12/18/17 15:00 97.5 57 20 134/67 (89) 96 Nasal Cannula 3.0 97.5 Labs: Labs: Laboratory Tests Test 12/18/17 11:20 12/18/17 12:15 White Blood Count 4.5 x10^3/uL (4.0-11.0) Red Blood Count 4.82 x10^6/uL (3.50-5.40) Hemoglobin 14.7 g/dL (12.0-15.5) Hematocrit 44.3 % (36.0-47.0) Mean Corpuscular Volume 92 fL (79-100) Mean Corpuscular Hemoglobin 31 pg (25-35) Mean Corpuscular Hemoglobin Concent 33 g/dL (31-37) Red Cell Distribution Width 16.0 % (11.5-14.5) Platelet Count 190 x10^3/uL (140-400) Neutrophils (%) (Auto) 69 % (31-73) Lymphocytes (%) (Auto) 11 % (24-48) Monocytes (%) (Auto) 15 % (0-9) Eosinophils (%) (Auto) 4 % (0-3) Basophils (%) (Auto) 1 % (0-3) Neutrophils # (Auto) 3.1 x10^3uL (1.8-7.7) Lymphocytes # (Auto) 0.5 x10^3/uL (1.0-4.8) Monocytes # (Auto) 0.7 x10^3/uL (0.0-1.1) Eosinophils # (Auto) 0.2 x10^3/uL (0.0-0.7) Basophils # (Auto) 0.0 x10^3/uL (0.0-0.2) Prothrombin Time 13.6 SEC (11.7-14.0) Prothromb Time International Ratio 1.1 (0.8-1.1) Sodium Level 136 mmol/L (136-145) Potassium Level 4.0 mmol/L (3.5-5.1) Chloride Level 99 mmol/L (98-107) Carbon Dioxide Level 27 mmol/L (21-32) Anion Gap 10 (6-14) Blood Urea Nitrogen 10 mg/dL (7-20) Creatinine 0.8 mg/dL (0.6-1.0) Estimated GFR (Cockcroft-Gault) 71.3 BUN/Creatinine Ratio 13 (6-20) Glucose Level 102 mg/dL (70-99) Calcium Level 8.9 mg/dL (8.5-10.1) Magnesium Level 1.8 mg/dL (1.8-2.4) Total Bilirubin 1.6 mg/dL (0.2-1.0) Aspartate Amino Transf (AST/SGOT) 63 U/L (15-37) Alanine Aminotransferase (ALT/SGPT) 44 U/L (14-59) Alkaline Phosphatase 245 U/L (46-116) Troponin I Quantitative < 0.017 ng/mL (0.000-0.055) WF-Zlx-O-Type Natriuretic Peptide 1963 pg/mL (0-124) Total Protein 8.1 g/dL (6.4-8.2) Albumin 2.9 g/dL (3.4-5.0) Albumin/Globulin Ratio 0.6 (1.0-1.7) Triglycerides Level 62 mg/dL (0-150) Cholesterol Level 144 mg/dL (0-200) LDL Cholesterol, Calculated 93 mg/dL (0-100) VLDL Cholesterol, Calculated 12 mg/dL (0-40) Non-HDL Cholesterol Calculated 105 mg/dL (0-129) HDL Cholesterol 39 mg/dL (40-60) Cholesterol/HDL Ratio 3.7 Lipase 125 U/L (73-393) Thyroid Stimulating Hormone (TSH) 4.603 uIU/mL (0.358-3.74) Urine Collection Type Void Urine Color Yellow Urine Clarity Clear Urine pH 6.0 Urine Specific [place] 1.010 Urine Protein Negative mg/dL (NEG-TRACE) Urine Glucose (UA) Negative mg/dL (NEG) Urine Ketones (Stick) Negative mg/dL (NEG) Urine Blood Negative (NEG) Urine Nitrite Negative (NEG) Urine Bilirubin Negative (NEG) Urine Urobilinogen Dipstick 0.2 mg/dL (0.2 mg/dL) Urine Leukocyte Esterase Trace (NEG) Urine RBC Occ /HPF (0-2) Urine WBC 1-4 /HPF (0-4) Urine Squamous Epithelial Cells Few /LPF Urine Bacteria Few /HPF (0-FEW) Allergies: Coded Allergies: Sulfa (Sulfonamide Antibiotics) (Verified Allergy, Severe, Anaphylaxis, 06/06/15) codeine (Verified Allergy, Mild, NAUSEA, 05/15/15) Medications: Current Medications Medications (Trade) Dose Ordered Sig/Denise Route PRN Reason Start Time Stop Time Status Last Admin Dose Admin Iohexol (Omnipaque 300 Mg/ml) 75 ml 1X ONCE IV 12/18/17 12:45 12/18/17 12:47 DC 12/18/17 12:45 Furosemide (Lasix) 40 mg 1X ONCE IVP 12/18/17 13:45 12/18/17 13:47 DC 12/18/17 14:28 Imaging: Imaging: CT A/P 12/18/17 1. There is moderate free fluid in the pelvis and to lesser degree in the abdomen, also diffuse body wall and mesenteric edema. Liver is small with likely nodular margin suggestive of cirrhosis. Main portal vein appears narrowed although likely at least partially patent. Spleen is not significantly enlarged. 2. There is colonic diverticulosis. Chest CTA 12/18/17 1. There is moderate free fluid in the pelvis and to lesser degree in the abdomen, also diffuse body wall and mesenteric edema. Liver is small with likely nodular margin suggestive of cirrhosis. Main portal vein appears narrowed although likely at least partially patent. Spleen is not significantly enlarged. 2. There is colonic diverticulosis. Lower extremity US IMPRESSION:. No evidence of lower extremity deep vein thrombosis. PE: GEN: NAD HEENT: Atraumatic, PERRLA LUNGS: CTAB HEART: RRR, no murmurs ABD: NABS, S/ND/NT, no masses EXTREMITY: No edema SKIN: No rashes, no jaundice NEURO/PSYCH: A & O 3 A/P: A/P: Cirrhosis- unknown origin -Checking hepatitis markers, additional hepatic serologies -Checking doppler ultrasound of abdomen Ascites -Pt to continue Lasix as ordered -Pt being evaluated by cardiology as well BREANN RINALDI Dec 18, 2017 16:16
[2017-12-18] MEDS: HEPARIN for SUB-Q USE 5,000 UNIT/ML VIAL. SQ SCH ×2 (17:14→21:07)
[2017-12-18] MEDS: amLODIPine BESYLATE 5 MG TABLET PO SCH (18:08)
[2017-12-18] MEDS ORDERED: OMEP20CA9 PO (18:11)
[2017-12-18] MEDS ORDERED: NADO40TA PO (18:11)
--- NOTE | 2017-12-18 18:25 | CARD ---
MR#: [id number] Date of Study: 12/18/2017 Ordering Physician: WILFRID LOPEZ, Referring Physician: HILDA FRYE Tech: Liseth Ortiz APPROVED REPORT EXAM: Two-dimensional and M-mode echocardiogram with Doppler and color Doppler. Other Information Quality : AverageHR: 63bpm Rhythm : NSR INDICATION Peripheral Edema Congestive Heart Failure 2D DIMENSIONS RVDd3.1 (2.9-3.5cm)Left Atrium(2D)4.5 (1.6-4.0cm) IVSd1.0 (0.7-1.1cm)Aortic Root(2D)2.8 (2.0-3.7cm) LVDd4.6 (3.9-5.9cm)LVOT Diameter2.0 (1.8-2.4cm) PWd0.7 (0.7-1.1cm)LVDs3.4 (2.5-4.0cm) Aortic Valve AoV VTI33.0cmAO Peak GR.8.0mmHg LVOT VTI 17.74cmAO Mean GR.4mmHg GERSON (VTI)1.66cm2 Mitral Valve MV E Velocity0.9cm/sMV DECEL [id number] MV A Velocity0.5cm/sE/A Ratio1.8 TDI Lateral E' P. V5.36cm/sMedial E' P. V4.76cm/s E/Lateral E'0.2E/Medial E'0.2 Tricuspid Valve RAP [id number] Peak Gr.6618mmHg [id number] LEFT VENTRICLE The left ventricle is normal size. There is normal left ventricular wall thickness. The left ventricu lar systolic function is normal and the ejection fraction is within normal range. The Ejection Fracti on is 50-55%. There is normal LV segmental wall motion. Tissue Doppler imaging reveals moderate left ventricular diastolic dysfunction. RIGHT VENTRICLE The right ventricle is moderately dilated. The right ventricle is mildly to moderately hypertrophied. The right ventricular systolic function is normal. ATRIA The left atrium is mildly dilated. The right atrium is mildly dilated. The interatrial septum is inta ct with no evidence for an atrial septal defect or patent foramen ovale as noted on 2-D or Doppler im aging. AORTIC VALVE The aortic valve is thickened but opens well. Doppler and Color Flow revealed no significant aortic r egurgitation. There is no significant aortic valvular stenosis. MITRAL VALVE The mitral valve is normal in structure and function. There is no mitral valve stenosis. Doppler and Color-flow revealed trace mitral regurgitation. TRICUSPID VALVE The tricuspid valve is not well visualized. Doppler and Color Flow revealed mild to moderate tricuspi d regurgitation with an estimated PAP of 69 mmHg. There is moderate pulmonary hypertension. There is no tricuspid valve stenosis. PULMONIC VALVE The pulmonic valve is not well visualized. Doppler and Color Flow revealed trace pulmonic valvular re gurgitation. There is no pulmonic valvular stenosis. GREAT VESSELS The aortic root is normal in size. The IVC is normal in size and collapses >50% with inspiration. PERICARDIAL EFFUSION There are large bilateral pleural effusions. There is no evidence of significant pericardial effusion . Critical Notification Critical Value: No <Conclusion> The left ventricular systolic function is normal and the ejection fraction is within normal range. Th e Ejection Fraction is 50-55%. There is normal LV segmental wall motion. The right ventricle is moderately dilated. Doppler and Color Flow revealed mild to moderate tricuspid regurgitation with an estimated PAP of 69 mmHg. There is moderate pulmonary hypertension. There are large bilateral pleural effusions. Signed by : Scottie Naranjo, Electronically Approved : 12/18/2017 18:24:24
[2017-12-18 19:00] VITALS: BP 123/66
[2017-12-18] MEDS: ZOLPIDEM 5 MG TABLET. PO PRN (21:00)
[2017-12-18] MEDS: ACETAMINOPHEN 325 MG TABLET. PO PRN (21:01)
[2017-12-18 23:00] VITALS: BP 106/49
[2017-12-19 03:00] VITALS: BP 112/47
[2017-12-19 05:00] LABS: BASO % 1 % (0-3); EOS # 0.2 x10^3/uL (0.0-0.7); EOS % 5 % (0-3); HEMATOCRIT 41.6 % (36.0-47.0); LYMPH # 0.6 x10^3/uL (1.0-4.8); LYMPH % 17 % (24-48); MEAN CORPUSCULAR HEMOGLOBIN 31 pg (25-35); MEAN CORPUSCULAR HGB CONC 34 g/dL (31-37); MEAN CORPUSCULAR VOLUME 91 fL (79-100); MONO # 0.6 x10^3/uL (0.0-1.1); MONO % 16 % (0-9); NEUT # 2.2 x10^3uL (1.8-7.7); NEUT % 62 % (31-73); PLATELET COUNT 146 x10^3/uL (140-400); RED BLOOD COUNT 4.56 x10^6/uL (3.50-5.40); RED CELL DISTRIBUTION WIDTH 15.5 % (11.5-14.5); WHITE BLOOD COUNT 3.6 x10^3/uL (4.0-11.0)
[2017-12-19 05:17] LABS: CALCIUM 9.2 mg/dL (8.5-10.1); CREATININE 0.8 mg/dL (0.6-1.0); GFR 71.3; POTASSIUM 3.9 mmol/L (3.5-5.1)
[2017-12-19] MEDS: LEVOTHYROXINE 25 MCG TABLET. PO SCH (05:18)
[2017-12-19] MEDS: HEPARIN for SUB-Q USE 5,000 UNIT/ML VIAL. SQ SCH ×3 (05:34→20:50)
[2017-12-19 07:32] VITALS: BP 110/56
[2017-12-19] MEDS ORDERED: MAGNESIUM SULFATE 2GM 50 ML IV ONE (08:00)
--- NOTE | 2017-12-19 08:04 | RAD ---
US HEPATIC DUPLEX INDICATION: Cirrhosis, concern for portal hypertension, narrowing of the portal vein on CT abdomen pelvis COMPARISON: CT abdomen and pelvis dated 12/18/2017 TECHNIQUE: Real-time grayscale and color duplex Doppler ultrasound of the abdomen was obtained in order to evaluate the hepatic vasculature. FINDINGS: Normal hepatopedal flow seen within the portal veins. Normal directional flow seen within the hepatic veins. Normal directional flow seen within the splenic vein. Nodular contour of the liver consistent with cirrhosis. Mild perihepatic ascites. Moderate left pleural effusion. IMPRESSION: 1. Normal hepatic vasculature directional flow. 2. Nodular contour of the liver consistent with cirrhosis. 3. Mild perihepatic ascites. 4. Moderate left pleural effusion. Electronically signed by: Pramod Servin MD (12/19/2017 8:00 AM) [facility]
[2017-12-19] MEDS ORDERED: FUROSEMIDE 40 MG TABLET. PO SCH (09:00)
[2017-12-19] MEDS: FUROSEMIDE 40 MG/4 ML VIAL. IVP SCH (09:11)
[2017-12-19] MEDS: amLODIPine BESYLATE 5 MG TABLET PO SCH (09:11)
[2017-12-19 11:07] VITALS: BP 120/57
--- NOTE | 2017-12-19 11:23 | CONS ---
DATE OF CONSULTATION: PULMONARY CONSULTATION ATTENDING PHYSICIAN: Dr. Paulino. REASON FOR CONSULTATION: Pleural effusion, abnormal CT chest. HISTORY OF PRESENT ILLNESS: The patient is a 67-year-old female with history of CREST syndrome. She also has history of cirrhosis and history of varices, status post banding. She has also had some ascites in the past. She was brought into the hospital with complaint of lower extremity edema. She had some mild shortness of breath as well. She smoked for 25 years, quit about 25 years ago. Recently, she has been placed on oxygen at 3 liters on a 24-hour basis. No history of deep vein thrombosis or pulmonary embolism. She has had occasional cough. No fever, no chills. No headaches. No nausea, vomiting or diarrhea. No abdominal pain. She was evaluated in the Emergency Room and imaging studies were performed, including a CT abdomen and pelvis along with CTA chest. The CTA chest shows [id number] amount of left pleural effusion. There was reflux of contrast into the hepatic vein, suggesting congestive heart failure. The patient's CT abdomen and pelvis consistent with cirrhosis. Abdominal ultrasound also suggested cirrhosis. There was moderate left pleural effusion and normal hepatic vasculature directional flow. I have been asked to see her for further evaluation. PAST MEDICAL HISTORY: Significant for history of cirrhosis, history of CREST and history of Raynaud's phenomenon. PAST SURGICAL HISTORY: Cholecystectomy, hysterectomy, breast reduction and right foot surgery. FAMILY HISTORY: Hypertension. SOCIAL HISTORY: Smoked for 25 years before quitting 25 years ago. ALLERGIES: SULFA AND CODEINE. MEDICATIONS: Current medications were reviewed as listed in the MRAD, including subcutaneous heparin. REVIEW OF SYSTEMS: Twelve-point system obtained. Pertinent positives discussed in my history of present illness, otherwise noncontributory. All systems that were negative were reviewed as well. PHYSICAL EXAMINATION: VITAL SIGNS: Reviewed. Blood pressure stable. Pulse ox 92% on 3 liters. Afebrile. HEENT: Sclerae nonicteric. NECK: Supple. LUNGS: Showed diminished breath sounds in the left base. CARDIOVASCULAR EXAMINATION: Regular rate and rhythm. ABDOMEN: Soft, distended. EXTREMITIES: With 2+ pitting edema, more on the left than on the right. LABORATORY DATA: Labs were reviewed. Hep B and Hep C nonreactive. BUN and creatinine normal. INR 1.1. White cell count 3.6, hemoglobin 14.0 and platelets are 146,000. Her troponin is less than 0.017. ProBNP is 1963. ALT and AST were reviewed. AST mildly elevated and alkaline phosphatase elevated. Bilirubin 1.6. IMPRESSION: 1. Dyspnea with lower extremity edema and acute on chronic hypoxic respiratory failure along with left-sided opezv-et-grgvhpmw pleural effusion. The Pleural effusion and symptoms are related to suspected hepato pulmonary syndrome from cirrhosis. 2. Hvlgrfvs-vl-mxocec pulmonary hypertension based on echocardiogram. Her PA pressure was 69 with an EF of 50% to 55%. Likely etiology is hepatopulmonary syndrome. 3. Left-sided pleural effusion, small to moderate. At this time, we will watch and if it does not improve, then we may consider diagnostic thoracentesis. 4. Cirrhosis of liver, etiology unknown. Follow GI recommendations. 5. CREST syndrome. RECOMMENDATIONS: 1. Continue with present diuresis and see the response to treatment. 2. If no improvement, then we will consider diagnostic thoracentesis. 3. Follow GI recommendations regarding management of cirrhosis. 4. P.r.n. bronchodilators. 5. Discussed with entire family and we will continue to follow along with you. 6. d/w Dr Naranjo. Hold off on right heart cath. ERIN HAYWOOD MD DR: RYDER/michelle JOB#: [id number] / [id number] WALTER
--- NOTE | 2017-12-19 11:44 | PDOC ---
Subjective: Subjective: Patient was seen this morning. She has continued to have sob and has been on 3L O2 at time of exam. She denies fever,chills or sweating. She has no chest pain. No abdominal pain. She has no confusion. No hematemesis, melena or hematochezia. She has no any other acute symptoms. Objective: Vital Signs: Vital Signs Date Time Temp Pulse Resp B/P (MAP) Pulse Ox O2 Delivery O2 Flow Rate FiO2 12/19/17 11:07 98.2 61 18 120/57 (78) 95 Nasal Cannula 3.0 98.2 Imaging: DOPPLER OF LOWER EXTREMITIES: No evidence of lower extremity deep vein thrombosis. Electronically signed by: Cheo Renteria MD (12/18/2017 12:50 PM) [facility] DICTATED and SIGNED BY: CHEO RENTERIA MD DATE: 12/18/ CT OF CHEST/ABDOMEN/PELVIS: 1. There is tuffb-kh-weahylce left pleural effusion. No central pulmonary embolism is identified, somewhat limited evaluation of the distal pulmonary arteries on this exam. There is reflux of contrast into the hepatic veins and somewhat enlarged heart, constellation findings which may be seen with heart failure. 2. There is moderate free fluid in the pelvis and to lesser degree in the abdomen, also diffuse body wall and mesenteric edema. Liver is small with likely nodular margin suggestive of cirrhosis. Main portal vein appears narrowed although likely at least partially patent. Spleen is not significantly enlarged. 3. There is colonic diverticulosis. Electronically signed by: Jasmyne Elam MD (12/18/2017 1:24 PM) [id number] DICTATED and SIGNED BY: JASMYNE ELAM MD DATE: 12/18/17 1303 DOPPLER ULTRASOUND: IMPRESSION: 1. Normal hepatic vasculature directional flow. 2. Nodular contour of the liver consistent with cirrhosis. 3. Mild perihepatic ascites. 4. Moderate left pleural effusion. Electronically signed by: Pramod Servin MD (12/19/2017 8:00 AM) [facility] DICTATED and SIGNED BY: PRAMOD SERVIN MD DATE: 12/19/17 0759 ECHOCARDIOGRAM: The left ventricular systolic function is normal and the ejection fraction is within normal range. The Ejection Fraction is 50-55%. There is normal LV segmental wall motion. The right ventricle is moderately dilated. Doppler and Color Flow revealed mild to moderate tricuspid regurgitation with an estimated PAP of 69 mmHg. There is moderate pulmonary hypertension. There are large bilateral pleural effusions. Signed by : Vani Naranjo, Electronically Approved : 12/18/2017 18:24:24 DICTATED and SIGNED BY: VANI NARANJO MD DATE: 12/18/17 1824 [id number] 0 [id number] CC: WILFRID LOPEZ APRN; VANI NARANJO MD; ABRAHAM PAUL Jr, MD; HILDA FRYE MD ~ Page of PE: GEN: Alert and oriented. HEENT: Atraumatic, PERRLA LUNGS: Has mild bibasilar rales. HEART: RRR, no murmurs ABD: Moderately distended abdomen with full flank. It is soft with no area of tenderness. Has evidence of moderate ascites. EXTREMITY: Has +2 pitting pretibial edema. SKIN: No rashes, no jaundice NEURO/PSYCH: A & O 3. No evidence of asterixis. A/P: 67 years old female patient with past medical history of obesity, hypertension and CREST syndrome; currently admitted after patient presented with worsening sob and ansarca. 1- Decompensated Cirrhosis: Patient denies any history of alcoholism or other risky behavior. Reviewed available labs and imaging. Has evidence of mall liver with nodular margin suggestive of cirrhosis. Doppler ruled out vascular compromise of major hepatic vasculatures. Patient needs to have comprehensive studies to rule out infectious, autoimmune and metabolic causes for cirrhosis. Please obtain daily MELD labs. 2- Dyspnea with new O2 requirement. Broad differential including fluid overload , hepatic pulmonary syndrome or underlying ILD in setting of CREST. Continue with low sodium diet and diuresis at this time. Defer further work up to primary team. 2-HCC screening: Patient needs to have surveillance ultrasound every six months as out patient for increased risk of hepatocellular carcinoma. This was discussed with patient and with great detail. 3: EV surveillance: patient reported that she had bleeding esophageal varices in the past that required multiple banding by Dr. Burgos. Last EGD more than a year ago. She needs to have surveillance EGD as out patient before in 1-2 months with decompensated cirrhosis. 4- Fluid Management: Patient has leg swelling,ascites and pleural effusion. She was advised regarding low sodium diet ( Less than 2 grams a day). Please start with 40mg Lasix daily and 100mg Aldactone while closely monitoring electrolytes and kidney functions. I recommend also to have diagnostic paracentesis for ascitic fluid analysis. 5- hepatic Encephalopathy: Patient has no evidence of HE patient and were advised regarding this.. Continue to follow patient closely. No indication for lactulose at this time. 5- Colorectal cancer screening: last colonoscopy a year ago by Dr. Burgos. 6- Bone Health: Check for vitamin D level. All the above plan was discussed with patient and her . PRITI CONDE MD Dec 19, 2017 11:44
--- NOTE | 2017-12-19 12:51 | PDOC ---
CARDIOLOGY PROGRESS NOTE SUBJECTIVE: No new events. OBJECTIVE: Vital SIgns: Vital Signs Date Time Temp Pulse Resp B/P (MAP) Pulse Ox O2 Delivery O2 Flow Rate FiO2 12/19/17 11:07 98.2 61 18 120/57 (78) 95 Nasal Cannula 3.0 98.2 I & O -1.1 L Objective: a/o x 3. NAD CVS; RRR no m/r/g soft abd, distended 1+ edema, improving. CURRENT MEDICATIONS: lasix 40mg ivp amlodipine 5mg daily ASSESSMENT: 1. Hepatopulmonary syndrome 2. Pulmonary HTN, secondary 3. Diastolic HF - acute on chronic 4. Sclerosis. PLAN: 1. Continue diuretics. 2. Supportive care from CV standpoint. 3. Repeat echo in a couple weeks after she achieves euvolemia to evaluate for pulmonary pressures 4. Not a candidate for pulm htn meds. Consider referral to [facility] on an outpt basis. Discussed with Dr. Suarez. VANI KENDALL MD Dec 19, 2017 12:51
--- NOTE | 2017-12-19 13:02 | PDOC ---
PROGRESS NOTES Chief Complaint Chief Complaint fluid overloaded, 2/2 acute on chronic diastolic CHF, EF 505 anasarca h/o Cirrhosis wo clear etiology h/o varices s/p banding accelerated HTN CHRONIC resp failure with left side moderate pleural effusion ascites with cirrhosis CREST dz Raynauldjey dz morbid obesity mild malnutrition hypomagnesemia plan: card, pulm, GI consulted may need thoracentesis, paracentesis, defer to specialists cardiac diet lasix 40mg iv daily, replete Mag check INR, TSH, ECHO cont home meds for now dvt ppx NC as needed, albuterol prn fu with hepatic labs, US ruled out hepatic vascular dz , + cirrhosis History of Present Illness History of Present Illness ROS: no fever, chills, sob or chest pain no sob, but still on NC 3L, no home o2 bl leg edema 2+ , slightly better Vitals Vitals Vital Signs Date Time Temp Pulse Resp B/P (MAP) Pulse Ox O2 Delivery O2 Flow Rate FiO2 12/19/17 11:07 98.2 61 18 120/57 (78) 95 Nasal Cannula 3.0 98.2 Physical Exam General: Alert, Oriented X3, Cooperative, No acute distress Heart: Regular rate (SR), Normal S1, Normal S2, Other (2/6 systolic murmur to LLS border) Lungs: Clear, Other Abdomen: Soft, Other (anasarca) Extremities: Other (2+ bilateral LE pitting edema) Skin: No breakdown, No significant lesion, Other (telangiectasia) Labs LABS Laboratory Tests Test 12/18/17 16:40 12/18/17 19:40 12/19/17 04:20 Iron Level 43 ug/dL (50-170) Ferritin 63 ng/mL (8-252) Troponin I Quantitative 0.019 ng/mL (0.000-0.055) 0.028 ng/mL (0.000-0.055) Hepatitis B Surface Antigen Nonreactive (Nonreactive) Hepatitis C IgG Antibody Nonreactive (Nonreactive) White Blood Count 3.6 x10^3/uL (4.0-11.0) Red Blood Count 4.56 x10^6/uL (3.50-5.40) Hemoglobin 14.0 g/dL (12.0-15.5) Hematocrit 41.6 % (36.0-47.0) Mean Corpuscular Volume 91 fL (79-100) Mean Corpuscular Hemoglobin 31 pg (25-35) Mean Corpuscular Hemoglobin Concent 34 g/dL (31-37) Red Cell Distribution Width 15.5 % (11.5-14.5) Platelet Count 146 x10^3/uL (140-400) Neutrophils (%) (Auto) 62 % (31-73) Lymphocytes (%) (Auto) 17 % (24-48) Monocytes (%) (Auto) 16 % (0-9) Eosinophils (%) (Auto) 5 % (0-3) Basophils (%) (Auto) 1 % (0-3) Neutrophils # (Auto) 2.2 x10^3uL (1.8-7.7) Lymphocytes # (Auto) 0.6 x10^3/uL (1.0-4.8) Monocytes # (Auto) 0.6 x10^3/uL (0.0-1.1) Eosinophils # (Auto) 0.2 x10^3/uL (0.0-0.7) Basophils # (Auto) 0.0 x10^3/uL (0.0-0.2) Sodium Level 138 mmol/L (136-145) Potassium Level 3.9 mmol/L (3.5-5.1) Chloride Level 102 mmol/L (98-107) Carbon Dioxide Level 27 mmol/L (21-32) Anion Gap 9 (6-14) Blood Urea Nitrogen 11 mg/dL (7-20) Creatinine 0.8 mg/dL (0.6-1.0) Estimated GFR (Cockcroft-Gault) 71.3 Glucose Level 82 mg/dL (70-99) Calcium Level 9.2 mg/dL (8.5-10.1) Magnesium Level 1.6 mg/dL (1.8-2.4) Assessment and Plan Assessmemt and Plan Problems Medical Problems: (1) Fluid overload Status: Acute Comment Review of Relevant I have reviewed the following items lizbeth (where applicable) has been applied. Labs Laboratory Tests Test 12/18/17 11:20 12/18/17 12:15 12/18/17 16:40 12/18/17 19:40 White Blood Count 4.5 x10^3/uL (4.0-11.0) Red Blood Count 4.82 x10^6/uL (3.50-5.40) Hemoglobin 14.7 g/dL (12.0-15.5) Hematocrit 44.3 % (36.0-47.0) Mean Corpuscular Volume 92 fL (79-100) Mean Corpuscular Hemoglobin 31 pg (25-35) Mean Corpuscular Hemoglobin Concent 33 g/dL (31-37) Red Cell Distribution Width 16.0 % (11.5-14.5) Platelet Count 190 x10^3/uL (140-400) Neutrophils (%) (Auto) 69 % (31-73) Lymphocytes (%) (Auto) 11 % (24-48) Monocytes (%) (Auto) 15 % (0-9) Eosinophils (%) (Auto) 4 % (0-3) Basophils (%) (Auto) 1 % (0-3) Neutrophils # (Auto) 3.1 x10^3uL (1.8-7.7) Lymphocytes # (Auto) 0.5 x10^3/uL (1.0-4.8) Monocytes # (Auto) 0.7 x10^3/uL (0.0-1.1) Eosinophils # (Auto) 0.2 x10^3/uL (0.0-0.7) Basophils # (Auto) 0.0 x10^3/uL (0.0-0.2) Prothrombin Time 13.6 SEC (11.7-14.0) Prothromb Time International Ratio 1.1 (0.8-1.1) Sodium Level 136 mmol/L (136-145) Potassium Level 4.0 mmol/L (3.5-5.1) Chloride Level 99 mmol/L (98-107) Carbon Dioxide Level 27 mmol/L (21-32) Anion Gap 10 (6-14) Blood Urea Nitrogen 10 mg/dL (7-20) Creatinine 0.8 mg/dL (0.6-1.0) Estimated GFR (Cockcroft-Gault) 71.3 BUN/Creatinine Ratio 13 (6-20) Glucose Level 102 mg/dL (70-99) Calcium Level 8.9 mg/dL (8.5-10.1) Magnesium Level 1.8 mg/dL (1.8-2.4) Total Bilirubin 1.6 mg/dL (0.2-1.0) Aspartate Amino Transf (AST/SGOT) 63 U/L (15-37) Alanine Aminotransferase (ALT/SGPT) 44 U/L (14-59) Alkaline Phosphatase 245 U/L (46-116) Troponin I Quantitative < 0.017 ng/mL (0.000-0.055) 0.019 ng/mL (0.000-0.055) 0.028 ng/mL (0.000-0.055) LZ-Nxh-U-Type Natriuretic Peptide 1963 pg/mL (0-124) Total Protein 8.1 g/dL (6.4-8.2) Albumin 2.9 g/dL (3.4-5.0) Albumin/Globulin Ratio 0.6 (1.0-1.7) Triglycerides Level 62 mg/dL (0-150) Cholesterol Level 144 mg/dL (0-200) LDL Cholesterol, Calculated 93 mg/dL (0-100) VLDL Cholesterol, Calculated 12 mg/dL (0-40) Non-HDL Cholesterol Calculated 105 mg/dL (0-129) HDL Cholesterol 39 mg/dL (40-60) Cholesterol/HDL Ratio 3.7 Lipase 125 U/L (73-393) Thyroid Stimulating Hormone (TSH) 4.603 uIU/mL (0.358-3.74) Urine Collection Type Void Urine Color Yellow Urine Clarity Clear Urine pH 6.[address] 1.010 Urine Protein Negative mg/dL (NEG-TRACE) Urine Glucose (UA) Negative mg/dL (NEG) Urine Ketones (Stick) Negative mg/dL (NEG) Urine Blood Negative (NEG) Urine Nitrite Negative (NEG) Urine Bilirubin Negative (NEG) Urine Urobilinogen Dipstick 0.2 mg/dL (0.2 mg/dL) Urine Leukocyte Esterase Trace (NEG) Urine RBC Occ /HPF (0-2) Urine WBC 1-4 /HPF (0-4) Urine Squamous Epithelial Cells Few /LPF Urine Bacteria Few /HPF (0-FEW) Iron Level 43 ug/dL (50-170) Ferritin 63 ng/mL (8-252) Hepatitis B Surface Antigen Nonreactive (Nonreactive) Hepatitis C IgG Antibody Nonreactive (Nonreactive) Test 12/19/17 04:20 White Blood Count 3.6 x10^3/uL (4.0-11.0) Red Blood Count 4.56 x10^6/uL (3.50-5.40) Hemoglobin 14.0 g/dL (12.0-15.5) Hematocrit 41.6 % (36.0-47.0) Mean Corpuscular Volume 91 fL (79-100) Mean Corpuscular Hemoglobin 31 pg (25-35) Mean Corpuscular Hemoglobin Concent 34 g/dL (31-37) Red Cell Distribution Width 15.5 % (11.5-14.5) Platelet Count 146 x10^3/uL (140-400) Neutrophils (%) (Auto) 62 % (31-73) Lymphocytes (%) (Auto) 17 % (24-48) Monocytes (%) (Auto) 16 % (0-9) Eosinophils (%) (Auto) 5 % (0-3) Basophils (%) (Auto) 1 % (0-3) Neutrophils # (Auto) 2.2 x10^3uL (1.8-7.7) Lymphocytes # (Auto) 0.6 x10^3/uL (1.0-4.8) Monocytes # (Auto) 0.6 x10^3/uL (0.0-1.1) Eosinophils # (Auto) 0.2 x10^3/uL (0.0-0.7) Basophils # (Auto) 0.0 x10^3/uL (0.0-0.2) Sodium Level 138 mmol/L (136-145) Potassium Level 3.9 mmol/L (3.5-5.1) Chloride Level 102 mmol/L (98-107) Carbon Dioxide Level 27 mmol/L (21-32) Anion Gap 9 (6-14) Blood Urea Nitrogen 11 mg/dL (7-20) Creatinine 0.8 mg/dL (0.6-1.0) Estimated GFR (Cockcroft-Gault) 71.3 Glucose Level 82 mg/dL (70-99) Calcium Level 9.2 mg/dL (8.5-10.1) Magnesium Level 1.6 mg/dL (1.8-2.4) Laboratory Tests Test 12/18/17 16:40 12/18/17 19:40 12/19/17 04:20 Iron Level 43 ug/dL (50-170) Ferritin 63 ng/mL (8-252) Troponin I Quantitative 0.019 ng/mL (0.000-0.055) 0.028 ng/mL (0.000-0.055) Hepatitis B Surface Antigen Nonreactive (Nonreactive) Hepatitis C IgG Antibody Nonreactive (Nonreactive) White Blood Count 3.6 x10^3/uL (4.0-11.0) Red Blood Count 4.56 x10^6/uL (3.50-5.40) Hemoglobin 14.0 g/dL (12.0-15.5) Hematocrit 41.6 % (36.0-47.0) Mean Corpuscular Volume 91 fL (79-100) Mean Corpuscular Hemoglobin 31 pg (25-35) Mean Corpuscular Hemoglobin Concent 34 g/dL (31-37) Red Cell Distribution Width 15.5 % (11.5-14.5) Platelet Count 146 x10^3/uL (140-400) Neutrophils (%) (Auto) 62 % (31-73) Lymphocytes (%) (Auto) 17 % (24-48) Monocytes (%) (Auto) 16 % (0-9) Eosinophils (%) (Auto) 5 % (0-3) Basophils (%) (Auto) 1 % (0-3) Neutrophils # (Auto) 2.2 x10^3uL (1.8-7.7) Lymphocytes # (Auto) 0.6 x10^3/uL (1.0-4.8) Monocytes # (Auto) 0.6 x10^3/uL (0.0-1.1) Eosinophils # (Auto) 0.2 x10^3/uL (0.0-0.7) Basophils # (Auto) 0.0 x10^3/uL (0.0-0.2) Sodium Level 138 mmol/L (136-145) Potassium Level 3.9 mmol/L (3.5-5.1) Chloride Level 102 mmol/L (98-107) Carbon Dioxide Level 27 mmol/L (21-32) Anion Gap 9 (6-14) Blood Urea Nitrogen 11 mg/dL (7-20) Creatinine 0.8 mg/dL (0.6-1.0) Estimated GFR (Cockcroft-Gault) 71.3 Glucose Level 82 mg/dL (70-99) Calcium Level 9.2 mg/dL (8.5-10.1) Magnesium Level 1.6 mg/dL (1.8-2.4) Medications Current Medications Iohexol (Omnipaque 300 Mg/ml) 75 ml 1X ONCE IV Last administered on at 12:45; Start 12/18/17 at 12:45; Stop 12/18/17 at 12:47; Status DC Info (CONTRAST GIVEN -- Rx MONITORING) 1 each PRN DAILY PRN MC SEE COMMENTS; Start 12/18/17 at 13:00; Stop 12/20/17 at 12:59 Ondansetron HCl (Zofran) 4 mg PRN Q8HRS PRN IV NAUSEA/VOMITING; Start at 13:45; Stop 12/18/17 at 14:22; Status DC Furosemide (Lasix) 40 mg 1X ONCE IVP Last administered on 12/18/17at 14:28; Start 12/18/17 at 13:45; Stop 12/18/17 at 13:47; Status DC Amlodipine Besylate (Norvasc) 5 mg DAILY PO ; Start 12/18/17 at 15:00; Status Cancel Levothyroxine Sodium (Synthroid) 25 mcg DAILY06 PO Last administered on at 05:18; Start 12/19/17 at 06:00 Zolpidem Tartrate (Ambien) 5 mg PRN QHS PRN PO INSOMNIA, MAY REPEAT X1 Last administered on 12/18/17at 21:00; Start 12/18/17 at 14:30 Acetaminophen (Tylenol) 650 mg PRN Q6HRS PRN PO FEVER Last administered on at 21:01; Start 12/18/17 at 14:30 Ondansetron HCl (Zofran) 4 mg PRN Q6HRS PRN IV NAUSEA/VOMITING; Start at 14:30 Docusate Sodium (Colace) 100 mg PRN DAILY PRN PO CONSTIPATION; Start 12/18/17 at 14:30 Labetalol HCl (Normodyne Iv Push) 20 mg PRN Q2HR PRN IVP HYPERTENSION, SEE COMMENTS; Start 12/18/17 at 14:30 Heparin Sodium (Porcine) (Heparin Sodium) 5,000 unit Q8HRS SQ Last administered on 12/19/17at 05:34; Start 12/18/17 at 15:00 Furosemide (Lasix) 40 mg DAILY PO ; Start 12/19/17 at 09:00; Stop 12/19/17 at 09:00; Status DC Albuterol Sulfate (Ventolin Neb Soln) 2.5 mg PRN Q4HRS PRN NEB SHORTNESS OF BREATH; Start 12/18/17 at 14:30 Furosemide (Lasix) 40 mg DAILY IVP Last administered on 12/19/17at 09:11; Start 12/19/17 at 09:00 Amlodipine Besylate (Norvasc) 5 mg DAILY PO Last administered on 12/19/17at 09: 11; Start 12/18/17 at 16:00 Magnesium Sulfate 50 ml @ 25 mls/hr 1X ONCE IV Last administered on at 09:11; Start 12/19/17 at 08:00; Stop 12/19/17 at 09:59; Status DC Active Scripts Active Reported Nadolol 40 Mg Tablet 1 Tab PO DAILY Omeprazole 20 Mg Capsule.dr 1 Cap PO BID Levothyroxine Sodium 25 Mcg Tablet 25 Mcg PO DAILYAC Ambien (Zolpidem Tartrate) 10 Mg Tablet 1 Tab PO PRN QHS PRN Amlodipine Besylate 5 Mg Tablet 5 Mg PO DAILY Vitals/I & O Vital Sign - Last 24 Hours 12/18/17 12/18/17 12/18/17 12/18/17 13:10 14:07 15:00 17:00 Temp 97.5 97.5 Pulse 68 66 57 Resp 22 20 20 B/P (MAP) 141/74 (96) 171/70 (103) 134/67 (89) Pulse Ox 98 100 96 O2 Delivery Nasal Cannula Nasal Cannula Nasal Cannula O2 Flow Rate 3.0 3.0 3.0 12/18/17 12/18/17 12/18/17 12/18/17 18:08 19:00 20:00 23:00 Temp 97.9 97.7 97.9 97.7 Pulse 57 62 60 Resp 18 18 B/P (MAP) 134/67 123/66 (85) 106/49 (68) Pulse Ox 94 95 O2 Delivery Nasal Cannula Nasal Cannula Nasal Cannula O2 Flow Rate 3.0 3.0 3.0 10/12/19/17 12/19/17 12/19/17 03:00 07:32 08:00 09:11 Temp 97.9 97.7 97.9 97.7 Pulse 59 62 62 Resp 18 18 B/P (MAP) 112/47 (68) 110/56 (74) 110/56 Pulse Ox 94 92 O2 Delivery Nasal Cannula Nasal Cannula Nasal Cannula O2 Flow Rate 3.0 3.0 3.0 12/19/17 11:07 Temp 98.2 98.2 Pulse 61 Resp 18 B/P (MAP) 120/57 (78) Pulse Ox 95 O2 Delivery Nasal Cannula O2 Flow Rate 3.0 Intake and Output 12/18/17 12/18/17 12/19/17 15:00 23:00 07:00 Output Total 390 ml 2750 ml 500 ml Balance -390 ml -2750 ml -500 ml HILDA FRYE MD Dec 19, 2017 13:02
[2017-12-19 15:00] VITALS: BP 117/61
[2017-12-19 19:00] VITALS: BP 115/51
[2017-12-19] MEDS: ACETAMINOPHEN 325 MG TABLET. PO PRN (20:45)
[2017-12-19] MEDS: ZOLPIDEM 5 MG TABLET. PO PRN (20:51)
[2017-12-19 23:00] VITALS: BP 97/52
[2017-12-20 03:00] VITALS: BP 124/31
[2017-12-20 04:27] LABS: BASO % 1 % (0-3); EOS # 0.2 x10^3/uL (0.0-0.7); EOS % 5 % (0-3); HEMATOCRIT 40.3 % (36.0-47.0); HEMOGLOBIN 13.4 g/dL (12.0-15.5); LYMPH # 0.6 x10^3/uL (1.0-4.8); LYMPH % 16 % (24-48); MEAN CORPUSCULAR HEMOGLOBIN 30 pg (25-35); MEAN CORPUSCULAR HGB CONC 33 g/dL (31-37); MEAN CORPUSCULAR VOLUME 91 fL (79-100); MONO # 0.6 x10^3/uL (0.0-1.1); MONO % 17 % (0-9); NEUT # 2.4 x10^3uL (1.8-7.7); NEUT % 62 % (31-73); PLATELET COUNT 132 x10^3/uL (140-400); RED BLOOD COUNT 4.45 x10^6/uL (3.50-5.40); RED CELL DISTRIBUTION WIDTH 15.5 % (11.5-14.5); WHITE BLOOD COUNT 3.8 x10^3/uL (4.0-11.0)
[2017-12-20 04:39] LABS: CALCIUM 8.5 mg/dL (8.5-10.1); CREATININE 0.8 mg/dL (0.6-1.0); GFR 71.3; MAGNESIUM 1.9 mg/dL (1.8-2.4); POTASSIUM 3.5 mmol/L (3.5-5.1)
[2017-12-20] MEDS: LEVOTHYROXINE 25 MCG TABLET. PO SCH (05:17)
[2017-12-20] MEDS: HEPARIN for SUB-Q USE 5,000 UNIT/ML VIAL. SQ SCH ×3 (05:21→21:39)
[2017-12-20 07:00] VITALS: BP 141/69
[2017-12-20] MEDS: FUROSEMIDE 40 MG/4 ML VIAL. IVP SCH (09:01)
[2017-12-20] MEDS: amLODIPine BESYLATE 5 MG TABLET PO SCH (09:01)
[2017-12-20] MEDS: ACETAMINOPHEN 325 MG TABLET. PO PRN ×2 (10:46→21:38)
[2017-12-20 11:00] VITALS: BP 119/58
--- NOTE | 2017-12-20 11:45 | PDOC ---
PULMONARY PROGRESS NOTES Subjective no soa/ less edema Vitals Vital Signs Date Time Temp Pulse Resp B/P (MAP) Pulse Ox O2 Delivery O2 Flow Rate FiO2 12/20/17 09:01 75 114/69 12/20/17 08:00 Nasal Cannula 3.0 12/20/17 07:00 99.0 18 92 99.0 General: Alert, No acute distress Lungs: Clear Cardiovascular: S1 Abdomen: Soft Extremities: Other (2+edema) Labs Laboratory Tests Test 12/18/17 12:15 12/18/17 16:40 12/18/17 19:40 12/19/17 04:20 Urine Collection Type Void Urine Color Yellow Urine Clarity Clear Urine pH 6.0 Urine Specific [place] 1.010 Urine Protein Negative mg/dL (NEG-TRACE) Urine Glucose (UA) Negative mg/dL (NEG) Urine Ketones (Stick) Negative mg/dL (NEG) Urine Blood Negative (NEG) Urine Nitrite Negative (NEG) Urine Bilirubin Negative (NEG) Urine Urobilinogen Dipstick 0.2 mg/dL (0.2 mg/dL) Urine Leukocyte Esterase Trace (NEG) Urine RBC Occ /HPF (0-2) Urine WBC 1-4 /HPF (0-4) Urine Squamous Epithelial Cells Few /LPF Urine Bacteria Few /HPF (0-FEW) Iron Level 43 ug/dL (50-170) Ferritin 63 ng/mL (8-252) Troponin I Quantitative 0.019 ng/mL (0.000-0.055) 0.028 ng/mL (0.000-0.055) Hepatitis B Surface Antigen Nonreactive (Nonreactive) Hepatitis C IgG Antibody Nonreactive (Nonreactive) White Blood Count 3.6 x10^3/uL (4.0-11.0) Red Blood Count 4.56 x10^6/uL (3.50-5.40) Hemoglobin 14.0 g/dL (12.0-15.5) Hematocrit 41.6 % (36.0-47.0) Mean Corpuscular Volume 91 fL (79-100) Mean Corpuscular Hemoglobin 31 pg (25-35) Mean Corpuscular Hemoglobin Concent 34 g/dL (31-37) Red Cell Distribution Width 15.5 % (11.5-14.5) Platelet Count 146 x10^3/uL (140-400) Neutrophils (%) (Auto) 62 % (31-73) Lymphocytes (%) (Auto) 17 % (24-48) Monocytes (%) (Auto) 16 % (0-9) Eosinophils (%) (Auto) 5 % (0-3) Basophils (%) (Auto) 1 % (0-3) Neutrophils # (Auto) 2.2 x10^3uL (1.8-7.7) Lymphocytes # (Auto) 0.6 x10^3/uL (1.0-4.8) Monocytes # (Auto) 0.6 x10^3/uL (0.0-1.1) Eosinophils # (Auto) 0.2 x10^3/uL (0.0-0.7) Basophils # (Auto) 0.0 x10^3/uL (0.0-0.2) Sodium Level 138 mmol/L (136-145) Potassium Level 3.9 mmol/L (3.5-5.1) Chloride Level 102 mmol/L (98-107) Carbon Dioxide Level 27 mmol/L (21-32) Anion Gap 9 (6-14) Blood Urea Nitrogen 11 mg/dL (7-20) Creatinine 0.8 mg/dL (0.6-1.0) Estimated GFR (Cockcroft-Gault) 71.3 Glucose Level 82 mg/dL (70-99) Calcium Level 9.2 mg/dL (8.5-10.1) Magnesium Level 1.6 mg/dL (1.8-2.4) Test 12/20/17 04:10 White Blood Count 3.8 x10^3/uL (4.0-11.0) Red Blood Count 4.45 x10^6/uL (3.50-5.40) Hemoglobin 13.4 g/dL (12.0-15.5) Hematocrit 40.3 % (36.0-47.0) Mean Corpuscular Volume 91 fL (79-100) Mean Corpuscular Hemoglobin 30 pg (25-35) Mean Corpuscular Hemoglobin Concent 33 g/dL (31-37) Red Cell Distribution Width 15.5 % (11.5-14.5) Platelet Count 132 x10^3/uL (140-400) Neutrophils (%) (Auto) 62 % (31-73) Lymphocytes (%) (Auto) 16 % (24-48) Monocytes (%) (Auto) 17 % (0-9) Eosinophils (%) (Auto) 5 % (0-3) Basophils (%) (Auto) 1 % (0-3) Neutrophils # (Auto) 2.4 x10^3uL (1.8-7.7) Lymphocytes # (Auto) 0.6 x10^3/uL (1.0-4.8) Monocytes # (Auto) 0.6 x10^3/uL (0.0-1.1) Eosinophils # (Auto) 0.2 x10^3/uL (0.0-0.7) Basophils # (Auto) 0.0 x10^3/uL (0.0-0.2) Sodium Level 137 mmol/L (136-145) Potassium Level 3.5 mmol/L (3.5-5.1) Chloride Level 100 mmol/L (98-107) Carbon Dioxide Level 31 mmol/L (21-32) Anion Gap 6 (6-14) Blood Urea Nitrogen 11 mg/dL (7-20) Creatinine 0.8 mg/dL (0.6-1.0) Estimated GFR (Cockcroft-Gault) 71.3 Glucose Level 88 mg/dL (70-99) Calcium Level 8.5 mg/dL (8.5-10.1) Magnesium Level 1.9 mg/dL (1.8-2.4) Laboratory Tests Test 12/20/17 04:10 White Blood Count 3.8 x10^3/uL (4.0-11.0) Red Blood Count 4.45 x10^6/uL (3.50-5.40) Hemoglobin 13.4 g/dL (12.0-15.5) Hematocrit 40.3 % (36.0-47.0) Mean Corpuscular Volume 91 fL (79-100) Mean Corpuscular Hemoglobin 30 pg (25-35) Mean Corpuscular Hemoglobin Concent 33 g/dL (31-37) Red Cell Distribution Width 15.5 % (11.5-14.5) Platelet Count 132 x10^3/uL (140-400) Neutrophils (%) (Auto) 62 % (31-73) Lymphocytes (%) (Auto) 16 % (24-48) Monocytes (%) (Auto) 17 % (0-9) Eosinophils (%) (Auto) 5 % (0-3) Basophils (%) (Auto) 1 % (0-3) Neutrophils # (Auto) 2.4 x10^3uL (1.8-7.7) Lymphocytes # (Auto) 0.6 x10^3/uL (1.0-4.8) Monocytes # (Auto) 0.6 x10^3/uL (0.0-1.1) Eosinophils # (Auto) 0.2 x10^3/uL (0.0-0.7) Basophils # (Auto) 0.0 x10^3/uL (0.0-0.2) Sodium Level 137 mmol/L (136-145) Potassium Level 3.5 mmol/L (3.5-5.1) Chloride Level 100 mmol/L (98-107) Carbon Dioxide Level 31 mmol/L (21-32) Anion Gap 6 (6-14) Blood Urea Nitrogen 11 mg/dL (7-20) Creatinine 0.8 mg/dL (0.6-1.0) Estimated GFR (Cockcroft-Gault) 71.3 Glucose Level 88 mg/dL (70-99) Calcium Level 8.5 mg/dL (8.5-10.1) Magnesium Level 1.9 mg/dL (1.8-2.4) Medications Active Scripts Medications Dose Route/Sig Max Daily Dose Days Date Category Nadolol 40 Mg Tablet 1 Tab PO DAILY 12/18/17 Reported Omeprazole 20 Mg Capsule.dr 1 Cap PO BID 12/18/17 Reported Levothyroxine Sodium 25 Mcg Tablet 25 Mcg PO DAILYAC 07/10/16 Reported Ambien (Zolpidem Tartrate) 10 Mg Tablet 1 Tab PO PRN QHS PRN 05/14/15 Reported Amlodipine Besylate 5 Mg Tablet 5 Mg PO DAILY 05/14/15 Reported Impression . 1. Dyspnea with lower extremity edema and acute on chronic hypoxic respiratory failure along with left-sided [id number] pleural effusion. The Pleural effusion and symptoms are related to suspected hepato pulmonary syndrome from decompensated cirrhosis. 2. [id number] pulmonary hypertension based on echocardiogram. Her PA pressure was 69 with an EF of 50% to 55%. Likely etiology is hepatopulmonary syndrome. 3. Left-sided pleural effusion, small to moderate. At this time, we will watch and if it does not improve, then we may consider diagnostic thoracentesis. 4. Cirrhosis of liver, etiology unknown. Follow GI recommendations. 5. CREST syndrome. Plan . 1. Continue with present diuresis and see the response to treatment. 2. If no improvement, then we will consider diagnostic thoracentesis. cxr later today 3. Follow GI recommendations regarding management of cirrhosis.May need paracentesis 4. P.r.n. bronchodilators. 5. Discussed with entire family and we will continue to follow along with you. 6. d/w Dr Naranjo. Hold off on right heart cath. ERIN HAYWOOD MD Dec 20, 2017 11:45
--- NOTE | 2017-12-20 12:01 | PDOC ---
PROGRESS NOTES Chief Complaint Chief Complaint fluid overloaded, 2/2 acute on chronic diastolic CHF, EF 50% anasarca h/o Cirrhosis wo clear etiology h/o varices s/p banding accelerated HTN CHRONIC resp failure with left side moderate pleural effusion ascites with cirrhosis, CHF CREST dz Raynaulds dz morbid obesity mild malnutrition hypomagnesemia plan: card, pulm, GI consulted may need thoracentesis, paracentesis, defer to specialists cardiac diet , NPO tonight incase tap tmr lasix 40mg iv daily, replete Mag check INR, TSH, ECHO done cont home meds for now dvt ppx NC as needed, albuterol prn fu with hepatic labs, US ruled out hepatic vascular dz , + cirrhosis discussed with pt and daughter at bedside History of Present Illness History of Present Illness ROS: no fever, chills, sob or chest pain no sob, but still on NC 3L, no home o2 bl leg edema 1- 2+ , better Vitals Vitals Vital Signs Date Time Temp Pulse Resp B/P (MAP) Pulse Ox O2 Delivery O2 Flow Rate FiO2 12/20/17 09:01 75 114/69 12/20/17 08:00 Nasal Cannula 3.0 12/20/17 07:00 99.0 18 92 99.0 Physical Exam General: Alert, Oriented X3, Cooperative, No acute distress Heart: Regular rate (SR), Normal S1, Normal S2, Other (2/6 systolic murmur to LLS border) Lungs: Clear Abdomen: Normal bowel sounds, Soft, Other (anasarca) Extremities: Other (1-2+ bilateral LE pitting edema) Skin: No breakdown, No significant lesion, Other (telangiectasia) Labs LABS Laboratory Tests Test 12/20/17 04:10 White Blood Count 3.8 x10^3/uL (4.0-11.0) Red Blood Count 4.45 x10^6/uL (3.50-5.40) Hemoglobin 13.4 g/dL (12.0-15.5) Hematocrit 40.3 % (36.0-47.0) Mean Corpuscular Volume 91 fL (79-100) Mean Corpuscular Hemoglobin 30 pg (25-35) Mean Corpuscular Hemoglobin Concent 33 g/dL (31-37) Red Cell Distribution Width 15.5 % (11.5-14.5) Platelet Count 132 x10^3/uL (140-400) Neutrophils (%) (Auto) 62 % (31-73) Lymphocytes (%) (Auto) 16 % (24-48) Monocytes (%) (Auto) 17 % (0-9) Eosinophils (%) (Auto) 5 % (0-3) Basophils (%) (Auto) 1 % (0-3) Neutrophils # (Auto) 2.4 x10^3uL (1.8-7.7) Lymphocytes # (Auto) 0.6 x10^3/uL (1.0-4.8) Monocytes # (Auto) 0.6 x10^3/uL (0.0-1.1) Eosinophils # (Auto) 0.2 x10^3/uL (0.0-0.7) Basophils # (Auto) 0.0 x10^3/uL (0.0-0.2) Sodium Level 137 mmol/L (136-145) Potassium Level 3.5 mmol/L (3.5-5.1) Chloride Level 100 mmol/L (98-107) Carbon Dioxide Level 31 mmol/L (21-32) Anion Gap 6 (6-14) Blood Urea Nitrogen 11 mg/dL (7-20) Creatinine 0.8 mg/dL (0.6-1.0) Estimated GFR (Cockcroft-Gault) 71.3 Glucose Level 88 mg/dL (70-99) Calcium Level 8.5 mg/dL (8.5-10.1) Magnesium Level 1.9 mg/dL (1.8-2.4) Assessment and Plan Assessmemt and Plan Problems Medical Problems: (1) Fluid overload Status: Acute Comment Review of Relevant I have reviewed the following items lizbeth (where applicable) has been applied. Labs Laboratory Tests Test 12/18/17 12:15 12/18/17 16:40 12/18/17 19:40 12/19/17 04:20 Urine Collection Type Void Urine Color Yellow Urine Clarity Clear Urine pH 6.0 Urine Specific [place] 1.010 Urine Protein Negative mg/dL (NEG-TRACE) Urine Glucose (UA) Negative mg/dL (NEG) Urine Ketones (Stick) Negative mg/dL (NEG) Urine Blood Negative (NEG) Urine Nitrite Negative (NEG) Urine Bilirubin Negative (NEG) Urine Urobilinogen Dipstick 0.2 mg/dL (0.2 mg/dL) Urine Leukocyte Esterase Trace (NEG) Urine RBC Occ /HPF (0-2) Urine WBC 1-4 /HPF (0-4) Urine Squamous Epithelial Cells Few /LPF Urine Bacteria Few /HPF (0-FEW) Iron Level 43 ug/dL (50-170) Ferritin 63 ng/mL (8-252) Troponin I Quantitative 0.019 ng/mL (0.000-0.055) 0.028 ng/mL (0.000-0.055) Hepatitis B Surface Antigen Nonreactive (Nonreactive) Hepatitis C IgG Antibody Nonreactive (Nonreactive) White Blood Count 3.6 x10^3/uL (4.0-11.0) Red Blood Count 4.56 x10^6/uL (3.50-5.40) Hemoglobin 14.0 g/dL (12.0-15.5) Hematocrit 41.6 % (36.0-47.0) Mean Corpuscular Volume 91 fL (79-100) Mean Corpuscular Hemoglobin 31 pg (25-35) Mean Corpuscular Hemoglobin Concent 34 g/dL (31-37) Red Cell Distribution Width 15.5 % (11.5-14.5) Platelet Count 146 x10^3/uL (140-400) Neutrophils (%) (Auto) 62 % (31-73) Lymphocytes (%) (Auto) 17 % (24-48) Monocytes (%) (Auto) 16 % (0-9) Eosinophils (%) (Auto) 5 % (0-3) Basophils (%) (Auto) 1 % (0-3) Neutrophils # (Auto) 2.2 x10^3uL (1.8-7.7) Lymphocytes # (Auto) 0.6 x10^3/uL (1.0-4.8) Monocytes # (Auto) 0.6 x10^3/uL (0.0-1.1) Eosinophils # (Auto) 0.2 x10^3/uL (0.0-0.7) Basophils # (Auto) 0.0 x10^3/uL (0.0-0.2) Sodium Level 138 mmol/L (136-145) Potassium Level 3.9 mmol/L (3.5-5.1) Chloride Level 102 mmol/L (98-107) Carbon Dioxide Level 27 mmol/L (21-32) Anion Gap 9 (6-14) Blood Urea Nitrogen 11 mg/dL (7-20) Creatinine 0.8 mg/dL (0.6-1.0) Estimated GFR (Cockcroft-Gault) 71.3 Glucose Level 82 mg/dL (70-99) Calcium Level 9.2 mg/dL (8.5-10.1) Magnesium Level 1.6 mg/dL (1.8-2.4) Test 12/20/17 04:10 White Blood Count 3.8 x10^3/uL (4.0-11.0) Red Blood Count 4.45 x10^6/uL (3.50-5.40) Hemoglobin 13.4 g/dL (12.0-15.5) Hematocrit 40.3 % (36.0-47.0) Mean Corpuscular Volume 91 fL (79-100) Mean Corpuscular Hemoglobin 30 pg (25-35) Mean Corpuscular Hemoglobin Concent 33 g/dL (31-37) Red Cell Distribution Width 15.5 % (11.5-14.5) Platelet Count 132 x10^3/uL (140-400) Neutrophils (%) (Auto) 62 % (31-73) Lymphocytes (%) (Auto) 16 % (24-48) Monocytes (%) (Auto) 17 % (0-9) Eosinophils (%) (Auto) 5 % (0-3) Basophils (%) (Auto) 1 % (0-3) Neutrophils # (Auto) 2.4 x10^3uL (1.8-7.7) Lymphocytes # (Auto) 0.6 x10^3/uL (1.0-4.8) Monocytes # (Auto) 0.6 x10^3/uL (0.0-1.1) Eosinophils # (Auto) 0.2 x10^3/uL (0.0-0.7) Basophils # (Auto) 0.0 x10^3/uL (0.0-0.2) Sodium Level 137 mmol/L (136-145) Potassium Level 3.5 mmol/L (3.5-5.1) Chloride Level 100 mmol/L (98-107) Carbon Dioxide Level 31 mmol/L (21-32) Anion Gap 6 (6-14) Blood Urea Nitrogen 11 mg/dL (7-20) Creatinine 0.8 mg/dL (0.6-1.0) Estimated GFR (Cockcroft-Gault) 71.3 Glucose Level 88 mg/dL (70-99) Calcium Level 8.5 mg/dL (8.5-10.1) Magnesium Level 1.9 mg/dL (1.8-2.4) Laboratory Tests Test 12/20/17 04:10 White Blood Count 3.8 x10^3/uL (4.0-11.0) Red Blood Count 4.45 x10^6/uL (3.50-5.40) Hemoglobin 13.4 g/dL (12.0-15.5) Hematocrit 40.3 % (36.0-47.0) Mean Corpuscular Volume 91 fL (79-100) Mean Corpuscular Hemoglobin 30 pg (25-35) Mean Corpuscular Hemoglobin Concent 33 g/dL (31-37) Red Cell Distribution Width 15.5 % (11.5-14.5) Platelet Count 132 x10^3/uL (140-400) Neutrophils (%) (Auto) 62 % (31-73) Lymphocytes (%) (Auto) 16 % (24-48) Monocytes (%) (Auto) 17 % (0-9) Eosinophils (%) (Auto) 5 % (0-3) Basophils (%) (Auto) 1 % (0-3) Neutrophils # (Auto) 2.4 x10^3uL (1.8-7.7) Lymphocytes # (Auto) 0.6 x10^3/uL (1.0-4.8) Monocytes # (Auto) 0.6 x10^3/uL (0.0-1.1) Eosinophils # (Auto) 0.2 x10^3/uL (0.0-0.7) Basophils # (Auto) 0.0 x10^3/uL (0.0-0.2) Sodium Level 137 mmol/L (136-145) Potassium Level 3.5 mmol/L (3.5-5.1) Chloride Level 100 mmol/L (98-107) Carbon Dioxide Level 31 mmol/L (21-32) Anion Gap 6 (6-14) Blood Urea Nitrogen 11 mg/dL (7-20) Creatinine 0.8 mg/dL (0.6-1.0) Estimated GFR (Cockcroft-Gault) 71.3 Glucose Level 88 mg/dL (70-99) Calcium Level 8.5 mg/dL (8.5-10.1) Magnesium Level 1.9 mg/dL (1.8-2.4) Microbiology 12/18/17 Urine Culture - Final, Complete 12/18/17 Urine Culture Result 1 (AGATA) - Final, Complete 12/18/17 Urine Culture Result 2 (AGATA) - Final, Complete Medications Current Medications Iohexol (Omnipaque 300 Mg/ml) 75 ml 1X ONCE IV Last administered on at 12:45; Start 12/18/17 at 12:45; Stop 12/18/17 at 12:47; Status DC Info (CONTRAST GIVEN -- Rx MONITORING) 1 each PRN DAILY PRN MC SEE COMMENTS; Start 12/18/17 at 13:00; Stop 12/20/17 at 12:59 Ondansetron HCl (Zofran) 4 mg PRN Q8HRS PRN IV NAUSEA/VOMITING; Start at 13:45; Stop 12/18/17 at 14:22; Status DC Furosemide (Lasix) 40 mg 1X ONCE IVP Last administered on 12/18/17at 14:28; Start 12/18/17 at 13:45; Stop 12/18/17 at 13:47; Status DC Amlodipine Besylate (Norvasc) 5 mg DAILY PO ; Start 12/18/17 at 15:00; Status Cancel Levothyroxine Sodium (Synthroid) 25 mcg DAILY06 PO Last administered on at 05:17; Start 12/19/17 at 06:00 Zolpidem Tartrate (Ambien) 5 mg PRN QHS PRN PO INSOMNIA, MAY REPEAT X1 Last administered on 12/19/17at 20:51; Start 12/18/17 at 14:30 Acetaminophen (Tylenol) 650 mg PRN Q6HRS PRN PO FEVER Last administered on at 10:46; Start 12/18/17 at 14:30 Ondansetron HCl (Zofran) 4 mg PRN Q6HRS PRN IV NAUSEA/VOMITING; Start at 14:30 Docusate Sodium (Colace) 100 mg PRN DAILY PRN PO CONSTIPATION Last administered on 12/19/17at 20:46; Start 12/18/17 at 14:30 Labetalol HCl (Normodyne Iv Push) 20 mg PRN Q2HR PRN IVP HYPERTENSION, SEE COMMENTS; Start 12/18/17 at 14:30 Heparin Sodium (Porcine) (Heparin Sodium) 5,000 unit Q8HRS SQ Last administered on 12/20/17at 05:21; Start 12/18/17 at 15:00 Furosemide (Lasix) 40 mg DAILY PO ; Start 12/19/17 at 09:00; Stop 12/19/17 at 09:00; Status DC Albuterol Sulfate (Ventolin Neb Soln) 2.5 mg PRN Q4HRS PRN NEB SHORTNESS OF BREATH; Start 12/18/17 at 14:30 Furosemide (Lasix) 40 mg DAILY IVP Last administered on 12/20/17at 09:01; Start 12/19/17 at 09:00 Amlodipine Besylate (Norvasc) 5 mg DAILY PO Last administered on 12/20/17at 09: 01; Start 12/18/17 at 16:00 Magnesium Sulfate 50 ml @ 25 mls/hr 1X ONCE IV Last administered on at 09:11; Start 12/19/17 at 08:00; Stop 12/19/17 at 09:59; Status DC Influenza Virus Vaccine (Afluria Trivalent [id number] Syringe) 0.5 ml ONCE ONCE VAX IM Last administered on 12/20/17at 09:02; Start 12/20/17 at 09:00; Stop 12/20/17 at 09:01; Status DC Active Scripts Active Reported Nadolol 40 Mg Tablet 1 Tab PO DAILY Omeprazole 20 Mg Capsule.dr 1 Cap PO BID Levothyroxine Sodium 25 Mcg Tablet 25 Mcg PO DAILYAC Ambien (Zolpidem Tartrate) 10 Mg Tablet 1 Tab PO PRN QHS PRN Amlodipine Besylate 5 Mg Tablet 5 Mg PO DAILY Vitals/I & O Vital Sign - Last 24 Hours 12/19/17 12/19/17 12/19/17 12/19/17 15:00 19:00 20:00 23:00 Temp 98.2 98.1 97.7 98.2 98.1 97.7 Pulse 64 68 69 Resp 18 18 18 B/P (MAP) 117/61 (79) 115/51 (72) 97/52 (67) Pulse Ox 92 96 93 O2 Delivery Nasal Cannula Nasal Cannula Nasal Cannula Nasal Cannula O2 Flow Rate 3.0 3.0 3.0 3.0 12/20/17 12/20/17 12/20/17 12/20/17 03:00 07:00 08:00 09:01 Temp 97.9 99.0 97.9 99.0 Pulse 66 60 75 Resp 22 18 B/P (MAP) 124/31 (62) 141/69 (93) 114/69 Pulse Ox 90 92 O2 Delivery Nasal Cannula Nasal Cannula Nasal Cannula O2 Flow Rate 3.0 3.0 3.0 Intake and Output 12/19/17 12/19/17 12/20/17 15:00 23:00 07:00 Intake Total 880 ml Output Total 1150 ml 950 ml Balance -1150 ml -950 ml 880 ml HILDA FRYE MD Dec 20, 2017 12:01
--- NOTE | 2017-12-20 14:35 | RAD ---
PORTABLE CHEST 1V INDICATION: Follow-up left pleural effusion COMPARISON: CT chest dated 12/18/2017 FINDINGS: Normal lung volume. Left basilar heterogenous airspace opacities. Pulmonary vascular indistinctness. Small left pleural effusion. No pneumothorax. The cardiomediastinal silhouette and great vessels are normal. No acute osseous abnormality. IMPRESSION: 1. Left basilar heterogenous airspace opacities may relate to atelectasis. Underlying infectious process or asymmetric edema would be difficult to exclude. 2. Small left pleural effusion. 3. Pulmonary vascular indistinctness which can be seen with mild pulmonary edema. Electronically signed by: Pramod Servin MD (12/20/2017 2:32 PM) [facility]
[2017-12-20 15:00] VITALS: BP 12/48
[2017-12-20 19:00] VITALS: BP 118/48
[2017-12-20 23:00] VITALS: BP 121/77
[2017-12-21 03:00] VITALS: BP 122/80
[2017-12-21 04:38] LABS: BASO % 1 % (0-3); EOS # 0.2 x10^3/uL (0.0-0.7); EOS % 5 % (0-3); HEMOGLOBIN 14.1 g/dL (12.0-15.5); LYMPH # 0.7 x10^3/uL (1.0-4.8); LYMPH % 17 % (24-48); MEAN CORPUSCULAR HEMOGLOBIN 31 pg (25-35); MEAN CORPUSCULAR HGB CONC 34 g/dL (31-37); MEAN CORPUSCULAR VOLUME 92 fL (79-100); MONO # 0.7 x10^3/uL (0.0-1.1); MONO % 18 % (0-9); NEUT # 2.4 x10^3uL (1.8-7.7); NEUT % 58 % (31-73); PLATELET COUNT 136 x10^3/uL (140-400); RED BLOOD COUNT 4.57 x10^6/uL (3.50-5.40); RED CELL DISTRIBUTION WIDTH 15.8 % (11.5-14.5); WHITE BLOOD COUNT 4.1 x10^3/uL (4.0-11.0)
[2017-12-21 04:59] LABS: CALCIUM 8.7 mg/dL (8.5-10.1); CREATININE 0.8 mg/dL (0.6-1.0); GFR 71.3; POTASSIUM 3.6 mmol/L (3.5-5.1)
[2017-12-21] MEDS: LEVOTHYROXINE 25 MCG TABLET. PO SCH (05:44)
[2017-12-21] MEDS: HEPARIN for SUB-Q USE 5,000 UNIT/ML VIAL. SQ SCH ×3 (05:44→21:23)
[2017-12-21 07:00] VITALS: BP 115/67
--- NOTE | 2017-12-21 08:22 | RAD ---
AP portable chest radiograph 12/21/2017 Clinical History: History of pleural effusion. An AP erect portable digital radiograph of the chest was obtained. Comparison study is dated 12/20/2017. The cardiac silhouette is normal in size. Thoracic aorta is mildly tortuous. There has been interval decrease in the small left pleural effusion. No acute pulmonary infiltrate is noted. No pneumothorax or pleural effusion is seen. The osseous structures are unchanged. Impression: Interval decrease in the small left pleural effusion. No acute pulmonary infiltrate is seen. Electronically signed by: Dereck Negron MD (12/21/2017 8:19 AM) [id number]
[2017-12-21] MEDS: FUROSEMIDE 40 MG/4 ML VIAL. IVP SCH (09:00)
[2017-12-21] MEDS: amLODIPine BESYLATE 5 MG TABLET PO SCH (09:00)
[2017-12-21 09:51] LABS: % ATYL 1 % (0-0); % BANDS 2 % (0-9); % BASOS 1 % (0-3); % EOS 6 % (0-5); % LYMPHS 15 % (24-48); % MONOS 12 % (0-10); % SEGS 63 % (35-66)
[2017-12-21 09:52] LABS: ANISOCYTOSIS SLIGHT; PLT ESTIMATE DECREASED (ADEQUATE)
[2017-12-21 11:00] VITALS: BP 120/40
--- NOTE | 2017-12-21 12:07 | PDOC ---
PULMONARY PROGRESS NOTES Subjective no soa/ less edema Vitals Vital Signs Date Time Temp Pulse Resp B/P (MAP) Pulse Ox O2 Delivery O2 Flow Rate FiO2 12/21/17 08:00 Nasal Cannula 3.0 12/21/17 07:00 97.9 68 20 115/67 (83) 96 97.9 General: Alert, No acute distress Lungs: Clear Cardiovascular: S1 Abdomen: Soft Extremities: Other (2+edema) Labs Laboratory Tests Test 12/20/17 04:10 12/21/17 04:00 White Blood Count 3.8 x10^3/uL (4.0-11.0) 4.1 x10^3/uL (4.0-11.0) Red Blood Count 4.45 x10^6/uL (3.50-5.40) 4.57 x10^6/uL (3.50-5.40) Hemoglobin 13.4 g/dL (12.0-15.5) 14.1 g/dL (12.0-15.5) Hematocrit 40.3 % (36.0-47.0) 42.0 % (36.0-47.0) Mean Corpuscular Volume 91 fL (79-100) 92 fL (79-100) Mean Corpuscular Hemoglobin 30 pg (25-35) 31 pg (25-35) Mean Corpuscular Hemoglobin Concent 33 g/dL (31-37) 34 g/dL (31-37) Red Cell Distribution Width 15.5 % (11.5-14.5) 15.8 % (11.5-14.5) Platelet Count 132 x10^3/uL (140-400) 136 x10^3/uL (140-400) Neutrophils (%) (Auto) 62 % (31-73) 58 % (31-73) Lymphocytes (%) (Auto) 16 % (24-48) 17 % (24-48) Monocytes (%) (Auto) 17 % (0-9) 18 % (0-9) Eosinophils (%) (Auto) 5 % (0-3) 5 % (0-3) Basophils (%) (Auto) 1 % (0-3) 1 % (0-3) Neutrophils # (Auto) 2.4 x10^3uL (1.8-7.7) 2.4 x10^3uL (1.8-7.7) Lymphocytes # (Auto) 0.6 x10^3/uL (1.0-4.8) 0.7 x10^3/uL (1.0-4.8) Monocytes # (Auto) 0.6 x10^3/uL (0.0-1.1) 0.7 x10^3/uL (0.0-1.1) Eosinophils # (Auto) 0.2 x10^3/uL (0.0-0.7) 0.2 x10^3/uL (0.0-0.7) Basophils # (Auto) 0.0 x10^3/uL (0.0-0.2) 0.0 x10^3/uL (0.0-0.2) Sodium Level 137 mmol/L (136-145) 135 mmol/L (136-145) Potassium Level 3.5 mmol/L (3.5-5.1) 3.6 mmol/L (3.5-5.1) Chloride Level 100 mmol/L (98-107) 98 mmol/L (98-107) Carbon Dioxide Level 31 mmol/L (21-32) 31 mmol/L (21-32) Anion Gap 6 (6-14) 6 (6-14) Blood Urea Nitrogen 11 mg/dL (7-20) 8 mg/dL (7-20) Creatinine 0.8 mg/dL (0.6-1.0) 0.8 mg/dL (0.6-1.0) Estimated GFR (Cockcroft-Gault) 71.3 71.3 Glucose Level 88 mg/dL (70-99) 87 mg/dL (70-99) Calcium Level 8.5 mg/dL (8.5-10.1) 8.7 mg/dL (8.5-10.1) Magnesium Level 1.9 mg/dL (1.8-2.4) Segmented Neutrophils % 63 % (35-66) Band Neutrophils % 2 % (0-9) Lymphocytes % 15 % (24-48) Atypical Lymphocytes % (Manual) 1 % (0-0) Monocytes % 12 % (0-10) Eosinophils % 6 % (0-5) Basophils % 1 % (0-3) Platelet Estimate Decreased (ADEQUATE) Anisocytosis Slight Laboratory Tests Test 12/21/17 04:00 White Blood Count 4.1 x10^3/uL (4.0-11.0) Red Blood Count 4.57 x10^6/uL (3.50-5.40) Hemoglobin 14.1 g/dL (12.0-15.5) Hematocrit 42.0 % (36.0-47.0) Mean Corpuscular Volume 92 fL (79-100) Mean Corpuscular Hemoglobin 31 pg (25-35) Mean Corpuscular Hemoglobin Concent 34 g/dL (31-37) Red Cell Distribution Width 15.8 % (11.5-14.5) Platelet Count 136 x10^3/uL (140-400) Neutrophils (%) (Auto) 58 % (31-73) Lymphocytes (%) (Auto) 17 % (24-48) Monocytes (%) (Auto) 18 % (0-9) Eosinophils (%) (Auto) 5 % (0-3) Basophils (%) (Auto) 1 % (0-3) Neutrophils # (Auto) 2.4 x10^3uL (1.8-7.7) Lymphocytes # (Auto) 0.7 x10^3/uL (1.0-4.8) Monocytes # (Auto) 0.7 x10^3/uL (0.0-1.1) Eosinophils # (Auto) 0.2 x10^3/uL (0.0-0.7) Basophils # (Auto) 0.0 x10^3/uL (0.0-0.2) Segmented Neutrophils % 63 % (35-66) Band Neutrophils % 2 % (0-9) Lymphocytes % 15 % (24-48) Atypical Lymphocytes % (Manual) 1 % (0-0) Monocytes % 12 % (0-10) Eosinophils % 6 % (0-5) Basophils % 1 % (0-3) Platelet Estimate Decreased (ADEQUATE) Anisocytosis Slight Sodium Level 135 mmol/L (136-145) Potassium Level 3.6 mmol/L (3.5-5.1) Chloride Level 98 mmol/L (98-107) Carbon Dioxide Level 31 mmol/L (21-32) Anion Gap 6 (6-14) Blood Urea Nitrogen 8 mg/dL (7-20) Creatinine 0.8 mg/dL (0.6-1.0) Estimated GFR (Cockcroft-Gault) 71.3 Glucose Level 87 mg/dL (70-99) Calcium Level 8.7 mg/dL (8.5-10.1) Medications Active Scripts Medications Dose Route/Sig Max Daily Dose Days Date Category Nadolol 40 Mg Tablet 1 Tab PO DAILY 12/18/17 Reported Omeprazole 20 Mg Capsule.dr [place] Cap PO BID 12/18/17 Reported Levothyroxine Sodium 25 Mcg Tablet 25 Mcg PO DAILYAC 07/10/16 Reported Ambien (Zolpidem Tartrate) 10 Mg Tablet 1 Tab PO PRN QHS PRN 05/14/15 Reported Amlodipine Besylate 5 Mg Tablet 5 Mg PO DAILY 05/14/15 Reported Comments CXR 12/21 Almost resolved left effusion Impression . 1. Dyspnea with lower extremity edema and acute on chronic hypoxic respiratory failure along with left-sided [id number] pleural effusion. The Pleural effusion and symptoms are related to suspected hepato pulmonary syndrome from decompensated cirrhosis. 2. Rqhpmpgc-di-prhaes pulmonary hypertension based on echocardiogram. Her PA pressure was 69 with an EF of 50% to 55%. Likely etiology is hepatopulmonary syndrome. 3. Left-sided pleural effusion, small to moderate. sig improved with diuresis. No need for thoracentesis. 4. Cirrhosis of liver, etiology unknown. Follow GI recommendations. 5. CREST syndrome. Plan . 1. Continue with present diuresis 2. No need for thoracentesis. cxr lwith much improved effusion on left 3. Follow GI recommendations regarding management of cirrhosis.May need paracentesis 4. P.r.n. bronchodilators. 5. Discussed with entire family and we will continue to follow along with you. 6. d/w Dr Naranjo. No need for right heart cath.(secondary pulmonary HTN) dc plans per PCP ERIN HAYWOOD MD Dec 21, 2017 12:06
--- NOTE | 2017-12-21 12:29 | PDOC ---
PROGRESS NOTES Chief Complaint Chief Complaint Fluid overloaded, 2/2 acute on chronic diastolic CHF, EF 50% Anasarca h/o Cirrhosis wo clear etiology h/o varices s/p banding accelerated HTN CHRONIC resp failure with left side moderate pleural effusion ascites with cirrhosis, CHF CREST dz Raynaulds dz morbid obesity mild malnutrition hypomagnesemia History of Present Illness History of Present Illness Pt seen and examined. LEONEL RN [facility] Dr. Erick GALICIA and daughter also. Vitals Vitals Vital Signs Date Time Temp Pulse Resp B/P (MAP) Pulse Ox O2 Delivery O2 Flow Rate FiO2 12/21/17 08:00 Nasal Cannula 3.0 12/21/17 07:00 97.9 68 20 115/67 (83) 96 97.9 Physical Exam General: Alert, Oriented X3, Cooperative, No acute distress Heart: Regular rate (SR), Normal S1, Normal S2, Other (2/6 systolic murmur to LLS border) Lungs: Clear Abdomen: Normal bowel sounds, Soft, Other (anasarca) Extremities: No clubbing, Other (1-2+ bilateral LE pitting edema) Skin: No breakdown, No significant lesion, Other (telangiectasia) Labs LABS Laboratory Tests Test 12/21/17 04:00 White Blood Count 4.1 x10^3/uL (4.0-11.0) Red Blood Count 4.57 x10^6/uL (3.50-5.40) Hemoglobin 14.1 g/dL (12.0-15.5) Hematocrit 42.0 % (36.0-47.0) Mean Corpuscular Volume 92 fL (79-100) Mean Corpuscular Hemoglobin 31 pg (25-35) Mean Corpuscular Hemoglobin Concent 34 g/dL (31-37) Red Cell Distribution Width 15.8 % (11.5-14.5) Platelet Count 136 x10^3/uL (140-400) Neutrophils (%) (Auto) 58 % (31-73) Lymphocytes (%) (Auto) 17 % (24-48) Monocytes (%) (Auto) 18 % (0-9) Eosinophils (%) (Auto) 5 % (0-3) Basophils (%) (Auto) 1 % (0-3) Neutrophils # (Auto) 2.4 x10^3uL (1.8-7.7) Lymphocytes # (Auto) 0.7 x10^3/uL (1.0-4.8) Monocytes # (Auto) 0.7 x10^3/uL (0.0-1.1) Eosinophils # (Auto) 0.2 x10^3/uL (0.0-0.7) Basophils # (Auto) 0.0 x10^3/uL (0.0-0.2) Segmented Neutrophils % 63 % (35-66) Band Neutrophils % 2 % (0-9) Lymphocytes % 15 % (24-48) Atypical Lymphocytes % (Manual) 1 % (0-0) Monocytes % 12 % (0-10) Eosinophils % 6 % (0-5) Basophils % 1 % (0-3) Platelet Estimate Decreased (ADEQUATE) Anisocytosis Slight Sodium Level 135 mmol/L (136-145) Potassium Level 3.6 mmol/L (3.5-5.1) Chloride Level 98 mmol/L (98-107) Carbon Dioxide Level 31 mmol/L (21-32) Anion Gap 6 (6-14) Blood Urea Nitrogen 8 mg/dL (7-20) Creatinine 0.8 mg/dL (0.6-1.0) Estimated GFR (Cockcroft-Gault) 71.3 Glucose Level 87 mg/dL (70-99) Calcium Level 8.7 mg/dL (8.5-10.1) Review of Systems Review of Systems co sob co weakness Assessment and Plan Assessmemt and Plan Problems Medical Problems: (1) Fluid overload Status: Acute Plan: Cont to diurese No thoracentesis required per Dr. Suarez Cardiac diet Lasix 40mg iv daily, replete Mag Cont home meds for now dvt ppx NC as needed, albuterol prn Discussed with pt, and daughter at bedside Comment Review of Relevant I have reviewed the following items lizbeth (where applicable) has been applied. Labs Laboratory Tests Test 12/20/17 04:10 12/21/17 04:00 White Blood Count 3.8 x10^3/uL (4.0-11.0) 4.1 x10^3/uL (4.0-11.0) Red Blood Count 4.45 x10^6/uL (3.50-5.40) 4.57 x10^6/uL (3.50-5.40) Hemoglobin 13.4 g/dL (12.0-15.5) 14.1 g/dL (12.0-15.5) Hematocrit 40.3 % (36.0-47.0) 42.0 % (36.0-47.0) Mean Corpuscular Volume 91 fL (79-100) 92 fL (79-100) Mean Corpuscular Hemoglobin 30 pg (25-35) 31 pg (25-35) Mean Corpuscular Hemoglobin Concent 33 g/dL (31-37) 34 g/dL (31-37) Red Cell Distribution Width 15.5 % (11.5-14.5) 15.8 % (11.5-14.5) Platelet Count 132 x10^3/uL (140-400) 136 x10^3/uL (140-400) Neutrophils (%) (Auto) 62 % (31-73) 58 % (31-73) Lymphocytes (%) (Auto) 16 % (24-48) 17 % (24-48) Monocytes (%) (Auto) 17 % (0-9) 18 % (0-9) Eosinophils (%) (Auto) 5 % (0-3) 5 % (0-3) Basophils (%) (Auto) 1 % (0-3) 1 % (0-3) Neutrophils # (Auto) 2.4 x10^3uL (1.8-7.7) 2.4 x10^3uL (1.8-7.7) Lymphocytes # (Auto) 0.6 x10^3/uL (1.0-4.8) 0.7 x10^3/uL (1.0-4.8) Monocytes # (Auto) 0.6 x10^3/uL (0.0-1.1) 0.7 x10^3/uL (0.0-1.1) Eosinophils # (Auto) 0.2 x10^3/uL (0.0-0.7) 0.2 x10^3/uL (0.0-0.7) Basophils # (Auto) 0.0 x10^3/uL (0.0-0.2) 0.0 x10^3/uL (0.0-0.2) Sodium Level 137 mmol/L (136-145) 135 mmol/L (136-145) Potassium Level 3.5 mmol/L (3.5-5.1) 3.6 mmol/L (3.5-5.1) Chloride Level 100 mmol/L (98-107) 98 mmol/L (98-107) Carbon Dioxide Level 31 mmol/L (21-32) 31 mmol/L (21-32) Anion Gap 6 (6-14) 6 (6-14) Blood Urea Nitrogen 11 mg/dL (7-20) 8 mg/dL (7-20) Creatinine 0.8 mg/dL (0.6-1.0) 0.8 mg/dL (0.6-1.0) Estimated GFR (Cockcroft-Gault) 71.3 71.3 Glucose Level 88 mg/dL (70-99) 87 mg/dL (70-99) Calcium Level 8.5 mg/dL (8.5-10.1) 8.7 mg/dL (8.5-10.1) Magnesium Level 1.9 mg/dL (1.8-2.4) Segmented Neutrophils % 63 % (35-66) Band Neutrophils % 2 % (0-9) Lymphocytes % 15 % (24-48) Atypical Lymphocytes % (Manual) 1 % (0-0) Monocytes % 12 % (0-10) Eosinophils % 6 % (0-5) Basophils % 1 % (0-3) Platelet Estimate Decreased (ADEQUATE) Anisocytosis Slight Laboratory Tests Test 12/21/17 04:00 White Blood Count 4.1 x10^3/uL (4.0-11.0) Red Blood Count 4.57 x10^6/uL (3.50-5.40) Hemoglobin 14.1 g/dL (12.0-15.5) Hematocrit 42.0 % (36.0-47.0) Mean Corpuscular Volume 92 fL (79-100) Mean Corpuscular Hemoglobin 31 pg (25-35) Mean Corpuscular Hemoglobin Concent 34 g/dL (31-37) Red Cell Distribution Width 15.8 % (11.5-14.5) Platelet Count 136 x10^3/uL (140-400) Neutrophils (%) (Auto) 58 % (31-73) Lymphocytes (%) (Auto) 17 % (24-48) Monocytes (%) (Auto) 18 % (0-9) Eosinophils (%) (Auto) 5 % (0-3) Basophils (%) (Auto) 1 % (0-3) Neutrophils # (Auto) 2.4 x10^3uL (1.8-7.7) Lymphocytes # (Auto) 0.7 x10^3/uL (1.0-4.8) Monocytes # (Auto) 0.7 x10^3/uL (0.0-1.1) Eosinophils # (Auto) 0.2 x10^3/uL (0.0-0.7) Basophils # (Auto) 0.0 x10^3/uL (0.0-0.2) Segmented Neutrophils % 63 % (35-66) Band Neutrophils % 2 % (0-9) Lymphocytes % 15 % (24-48) Atypical Lymphocytes % (Manual) 1 % (0-0) Monocytes % 12 % (0-10) Eosinophils % 6 % (0-5) Basophils % 1 % (0-3) Platelet Estimate Decreased (ADEQUATE) Anisocytosis Slight Sodium Level 135 mmol/L (136-145) Potassium Level 3.6 mmol/L (3.5-5.1) Chloride Level 98 mmol/L (98-107) Carbon Dioxide Level 31 mmol/L (21-32) Anion Gap 6 (6-14) Blood Urea Nitrogen 8 mg/dL (7-20) Creatinine 0.8 mg/dL (0.6-1.0) Estimated GFR (Cockcroft-Gault) 71.3 Glucose Level 87 mg/dL (70-99) Calcium Level 8.7 mg/dL (8.5-10.1) Microbiology 12/18/17 Urine Culture - Final, Complete 12/18/17 Urine Culture Result 1 (AGATA) - Final, Complete 12/18/17 Urine Culture Result 2 (AGATA) - Final, Complete Medications Current Medications Iohexol (Omnipaque 300 Mg/ml) 75 ml 1X ONCE IV Last administered on at 12:45; Start 12/18/17 at 12:45; Stop 12/18/17 at 12:47; Status DC Info (CONTRAST GIVEN -- Rx MONITORING) 1 each PRN DAILY PRN MC SEE COMMENTS; Start 12/18/17 at 13:00; Stop 12/20/17 at 12:59; Status DC Ondansetron HCl (Zofran) 4 mg PRN Q8HRS PRN IV NAUSEA/VOMITING; Start at 13:45; Stop 12/18/17 at 14:22; Status DC Furosemide (Lasix) 40 mg 1X ONCE IVP Last administered on 12/18/17at 14:28; Start 12/18/17 at 13:45; Stop 12/18/17 at 13:47; Status DC Amlodipine Besylate (Norvasc) 5 mg DAILY PO ; Start 12/18/17 at 15:00; Status Cancel Levothyroxine Sodium (Synthroid) 25 mcg DAILY06 PO Last administered on at 05:44; Start 12/19/17 at 06:00 Zolpidem Tartrate (Ambien) 5 mg PRN QHS PRN PO INSOMNIA, MAY REPEAT X1 Last administered on 12/19/17at 20:51; Start 12/18/17 at 14:30 Acetaminophen (Tylenol) 650 mg PRN Q6HRS PRN PO FEVER Last administered on at 21:38; Start 12/18/17 at 14:30 Ondansetron HCl (Zofran) 4 mg PRN Q6HRS PRN IV NAUSEA/VOMITING; Start at 14:30 Docusate Sodium (Colace) 100 mg PRN DAILY PRN PO CONSTIPATION Last administered on 12/19/17at 20:46; Start 12/18/17 at 14:30 Labetalol HCl (Normodyne Iv Push) 20 mg PRN Q2HR PRN IVP HYPERTENSION, SEE COMMENTS; Start 12/18/17 at 14:30 Heparin Sodium (Porcine) (Heparin Sodium) 5,000 unit Q8HRS SQ Last administered on 12/20/17at 14:13; Start 12/18/17 at 15:00 Furosemide (Lasix) 40 mg DAILY PO ; Start 12/19/17 at 09:00; Stop 12/19/17 at 09:00; Status DC Albuterol Sulfate (Ventolin Neb Soln) 2.5 mg PRN Q4HRS PRN NEB SHORTNESS OF BREATH; Start 12/18/17 at 14:30 Furosemide (Lasix) 40 mg DAILY IVP Last administered on 12/20/17at 09:01; Start 12/19/17 at 09:00 Amlodipine Besylate (Norvasc) 5 mg DAILY PO Last administered on 12/20/17at 09: 01; Start 12/18/17 at 16:00 Magnesium Sulfate 50 ml @ 25 mls/hr 1X ONCE IV Last administered on at 09:11; Start 12/19/17 at 08:00; Stop 12/19/17 at 09:59; Status DC Influenza Virus Vaccine (Afluria Trivalent [id number] Syringe) 0.5 ml ONCE ONCE VAX IM Last administered on 12/20/17at 09:02; Start 12/20/17 at 09:00; Stop 12/20/17 at 09:01; Status DC Active Scripts Active Reported Nadolol 40 Mg Tablet 1 Tab PO DAILY Omeprazole 20 Mg Capsule.dr 1 Cap PO BID Levothyroxine Sodium 25 Mcg Tablet 25 Mcg PO DAILYAC Ambien (Zolpidem Tartrate) 10 Mg Tablet 1 Tab PO PRN QHS PRN Amlodipine Besylate 5 Mg Tablet 5 Mg PO DAILY Vitals/I & O Vital Sign - Last 24 Hours 12/20/17 12/20/17 12/20/17 12/20/17 15:00 19:00 19:46 23:00 Temp 97.7 96.9 97.9 97.7 96.9 97.9 Pulse 74 68 74 Resp 18 20 18 B/P (MAP) 12/48 (36) 118/48 (71) 121/77 (92) Pulse Ox 96 97 90 O2 Delivery Nasal Cannula Nasal Cannula Nasal Cannula O2 Flow Rate 3.0 3.0 3.0 12/21/17 12/21/17 12/21/17 03:00 07:00 08:00 Temp 97.1 97.9 97.1 97.9 Pulse 70 68 Resp 17 20 B/P (MAP) 122/80 (94) 115/67 (83) Pulse Ox 94 96 O2 Delivery Nasal Cannula Nasal Cannula Nasal Cannula O2 Flow Rate 3.0 3.0 3.0 Intake and Output 12/20/17 12/20/17 12/21/17 15:00 23:00 07:00 Intake Total 300 ml Output Total 500 ml 200 ml 800 ml Balance -500 ml 100 ml -800 ml LEOPOLDO VALENTEL K III DO Dec 21, 2017 12:29
--- NOTE | 2017-12-21 14:43 | PDOC ---
Subjective: Subjective: Pt state she is feeling much better this morning. Her shortness of air is improving as well as her abdominal and lower leg swelling. She feels the Lasix is working well for her. She has had 3 BM's this morning. She has been seen by pulmonology and has been told she is not currently requiring a thoracentesis as her small pleural effusion is improving. Objective: Vital Signs: Vital Signs Date Time Temp Pulse Resp B/P (MAP) Pulse Ox O2 Delivery O2 Flow Rate FiO2 12/21/17 08:00 Nasal Cannula 3.0 12/21/17 07:00 97.9 68 20 115/67 (83) 96 97.9 Labs: Laboratory Tests Test 12/21/17 04:00 White Blood Count 4.1 x10^3/uL Red Blood Count 4.57 x10^6/uL Hemoglobin 14.1 g/dL Hematocrit 42.0 % Mean Corpuscular Volume 92 fL Mean Corpuscular Hemoglobin 31 pg Mean Corpuscular Hemoglobin Concent 34 g/dL Red Cell Distribution Width 15.8 % Platelet Count 136 x10^3/uL Neutrophils (%) (Auto) 58 % Lymphocytes (%) (Auto) 17 % Monocytes (%) (Auto) 18 % Eosinophils (%) (Auto) 5 % Basophils (%) (Auto) 1 % Neutrophils # (Auto) 2.4 x10^3uL Lymphocytes # (Auto) 0.7 x10^3/uL Monocytes # (Auto) 0.7 x10^3/uL Eosinophils # (Auto) 0.2 x10^3/uL Basophils # (Auto) 0.0 x10^3/uL Segmented Neutrophils % 63 % Band Neutrophils % 2 % Lymphocytes % 15 % Atypical Lymphocytes % (Manual) 1 % Monocytes % 12 % Eosinophils % 6 % Basophils % 1 % Platelet Estimate Decreased Anisocytosis Slight Sodium Level 135 mmol/L Potassium Level 3.6 mmol/L Chloride Level 98 mmol/L Carbon Dioxide Level 31 mmol/L Anion Gap 6 Blood Urea Nitrogen 8 mg/dL Creatinine 0.8 mg/dL Estimated GFR (Cockcroft-Gault) 71.3 Glucose Level 87 mg/dL Calcium Level 8.7 mg/dL Imaging: Chest x-ray 12/21/17 Impression: Interval decrease in the small left pleural effusion. No acute pulmonary infiltrate is seen. PE: GEN: NAD HEENT: Atraumatic, PERRLA LUNGS: CTAB HEART: RRR, no murmurs ABD: NABS, S/ND/NT, no masses EXTREMITY: No edema SKIN: No rashes, no jaundice NEURO/PSYCH: A & O 3 A/P: 67 years old female patient with past medical history of obesity, hypertension and CREST syndrome; currently admitted after patient presented with worsening sob and ansarca. 1- Decompensated Cirrhosis: Patient denies any history of alcoholism or other risky behavior. Reviewed available labs and imaging. Has evidence of mall liver with nodular margin suggestive of cirrhosis. Doppler ruled out vascular compromise of major hepatic vasculatures. Patient needs to have comprehensive studies to rule out infectious, autoimmune and metabolic causes for cirrhosis ( Smooth muscle antibody and mitochondrial antibody tests currently pending). Pt is negative for Hep B or C. Please obtain daily MELD labs. 2- Dyspnea with new O2 requirement. Broad differential including fluid overload , hepatic pulmonary syndrome or underlying ILD in setting of CREST. Continue with low sodium diet and diuresis at this time. Defer further work up to primary team. 2-HCC screening: Patient needs to have surveillance ultrasound every six months as out patient for increased risk of hepatocellular carcinoma. This was discussed with patient and with great detail. 3: EV surveillance: patient reported that she had bleeding esophageal varices in the past that required multiple banding by Dr. Burgos. Last EGD more than a year ago. She needs to have surveillance EGD as out patient before in 1-2 months with decompensated cirrhosis. 4- Fluid Management: Patient has leg swelling,ascites and pleural effusion. She was advised regarding low sodium diet ( Less than 2 grams a day). Pt to continue 40mg Lasix daily for now, while closely monitoring electrolytes and kidney functions. Holding off on paracentesis for now, as pt's swelling has currently improved. Plan to schedule this procedure if swelling reoccurs. 5- hepatic Encephalopathy: Patient has no evidence of HE patient and were advised regarding this.. Continue to follow patient closely. No indication for lactulose at this time. 5- Colorectal cancer screening: last colonoscopy a year ago by Dr. Burgos. 6- Bone Health: Check for vitamin D level. BREANN RINALDI Dec 21, 2017 14:43
[2017-12-21 15:00] VITALS: BP 137/57
[2017-12-21 19:00] VITALS: BP 144/55
[2017-12-21 19:16] LABS: ANA INTERP Positive (.)
[2017-12-21] MEDS: ACETAMINOPHEN 325 MG TABLET. PO PRN (21:20)
[2017-12-21 23:00] VITALS: BP 118/62
[2017-12-22 03:06] VITALS: BP 147/77
[2017-12-22] MEDS: LEVOTHYROXINE 25 MCG TABLET. PO SCH (05:26)
[2017-12-22] MEDS: HEPARIN for SUB-Q USE 5,000 UNIT/ML VIAL. SQ SCH ×2 (05:29→14:39)
[2017-12-22 07:00] VITALS: BP 121/67
[2017-12-22] MEDS: FUROSEMIDE 40 MG/4 ML VIAL. IVP SCH (09:00)
[2017-12-22] MEDS: amLODIPine BESYLATE 5 MG TABLET PO SCH (09:13)
--- NOTE | 2017-12-22 09:20 | PDOC ---
PULMONARY PROGRESS NOTES Subjective PT NOT MORE SOA Vitals Vital Signs Date Time Temp Pulse Resp B/P (MAP) Pulse Ox O2 Delivery O2 Flow Rate FiO2 12/22/17 09:13 72 121/67 12/22/17 07:00 97.7 18 96 Nasal Cannula 97.7 12/21/17 19:45 3.0 ROS: No Nausea, No Chest Pain, No Abdominal Pain, No Increase Cough General: Alert, No acute distress Lungs: Clear Cardiovascular: S1 Abdomen: Soft Extremities: Other (2+edema) Labs Laboratory Tests Test 12/21/17 04:00 White Blood Count 4.1 x10^3/uL (4.0-11.0) Red Blood Count 4.57 x10^6/uL (3.50-5.40) Hemoglobin 14.1 g/dL (12.0-15.5) Hematocrit 42.0 % (36.0-47.0) Mean Corpuscular Volume 92 fL (79-100) Mean Corpuscular Hemoglobin 31 pg (25-35) Mean Corpuscular Hemoglobin Concent 34 g/dL (31-37) Red Cell Distribution Width 15.8 % (11.5-14.5) Platelet Count 136 x10^3/uL (140-400) Neutrophils (%) (Auto) 58 % (31-73) Lymphocytes (%) (Auto) 17 % (24-48) Monocytes (%) (Auto) 18 % (0-9) Eosinophils (%) (Auto) 5 % (0-3) Basophils (%) (Auto) 1 % (0-3) Neutrophils # (Auto) 2.4 x10^3uL (1.8-7.7) Lymphocytes # (Auto) 0.7 x10^3/uL (1.0-4.8) Monocytes # (Auto) 0.7 x10^3/uL (0.0-1.1) Eosinophils # (Auto) 0.2 x10^3/uL (0.0-0.7) Basophils # (Auto) 0.0 x10^3/uL (0.0-0.2) Segmented Neutrophils % 63 % (35-66) Band Neutrophils % 2 % (0-9) Lymphocytes % 15 % (24-48) Atypical Lymphocytes % (Manual) 1 % (0-0) Monocytes % 12 % (0-10) Eosinophils % 6 % (0-5) Basophils % 1 % (0-3) Platelet Estimate Decreased (ADEQUATE) Anisocytosis Slight Sodium Level 135 mmol/L (136-145) Potassium Level 3.6 mmol/L (3.5-5.1) Chloride Level 98 mmol/L (98-107) Carbon Dioxide Level 31 mmol/L (21-32) Anion Gap 6 (6-14) Blood Urea Nitrogen 8 mg/dL (7-20) Creatinine 0.8 mg/dL (0.6-1.0) Estimated GFR (Cockcroft-Gault) 71.3 Glucose Level 87 mg/dL (70-99) Calcium Level 8.7 mg/dL (8.5-10.1) Medications Active Scripts Medications Dose Route/Sig Max Daily Dose Days Date Category Nadolol 40 Mg Tablet 1 Tab PO DAILY 12/18/17 Reported Omeprazole 20 Mg Capsule.dr 1 Cap PO BID 12/18/17 Reported Levothyroxine Sodium 25 Mcg Tablet 25 Mcg PO DAILYAC 07/10/16 Reported Ambien (Zolpidem Tartrate) 10 Mg Tablet 1 Tab PO PRN QHS PRN 05/14/15 Reported Amlodipine Besylate 5 Mg Tablet 5 Mg PO DAILY 05/14/15 Reported Comments CXR 12/21 Almost resolved left effusion Impression . 1. Dyspnea with lower extremity edema and acute on chronic hypoxic respiratory failure along with left-sided [id number] pleural effusion. The Pleural effusion and symptoms are related to suspected hepato pulmonary syndrome from decompensated cirrhosis. 2. [id number]-lg-hzhgcq pulmonary hypertension based on echocardiogram. Her PA pressure was 69 with an EF of 50% to 55%. Likely etiology is hepatopulmonary syndrome. 3. Left-sided pleural effusion, small to moderate. sig improved with diuresis. No need for thoracentesis. 4. Cirrhosis of liver, etiology unknown. Follow GI recommendations. 5. CREST syndrome. Plan . OK TO D/C RESP STATUS IS COMPENSATED KEN ESPINOZA MD Dec 22, 2017 09:20
--- NOTE | 2017-12-22 09:58 | PDOC ---
PROGRESS NOTES Chief Complaint Chief Complaint Fluid overloaded, 2/2 acute on chronic diastolic CHF, EF 50% Anasarca h/o Cirrhosis wo clear etiology h/o varices s/p banding, remote minimal alcohol use accelerated HTN moderate to severe pulmonary hypertension CHRONIC resp failure with left side mild- moderate pleural effusion improving ascites with cirrhosis, CHF CREST dz Raynaulds dz morbid obesity mild malnutrition hypomagnesemia states she eats too many salty foods at home History of Present Illness History of Present Illness Pt seen and examined. DW RN change oral lasix DW Vitals Vitals Vital Signs Date Time Temp Pulse Resp B/P (MAP) Pulse Ox O2 Delivery O2 Flow Rate FiO2 12/22/17 09:13 72 121/67 12/22/17 08:00 Nasal Cannula 3.0 12/22/17 07:00 97.7 18 96 97.7 Physical Exam General: Alert, Oriented X3, Cooperative, No acute distress Heart: Regular rate (SR), Normal S1, Normal S2, Other (2/6 systolic murmur to LLS border) Lungs: Clear Abdomen: Normal bowel sounds, Soft, No tenderness, Other (anasarca) Extremities: No clubbing, Other (1-+ bilateral LE pitting edema) Skin: No breakdown, No significant lesion, Other (telangiectasia) Assessment and Plan Assessmemt and Plan Problems Medical Problems: (1) Fluid overload Status: Acute Comment Review of Relevant I have reviewed the following items lizbeth (where applicable) has been applied. Labs Laboratory Tests Test 12/21/17 04:00 White Blood Count 4.1 x10^3/uL (4.0-11.0) Red Blood Count 4.57 x10^6/uL (3.50-5.40) Hemoglobin 14.1 g/dL (12.0-15.5) Hematocrit 42.0 % (36.0-47.0) Mean Corpuscular Volume 92 fL (79-100) Mean Corpuscular Hemoglobin 31 pg (25-35) Mean Corpuscular Hemoglobin Concent 34 g/dL (31-37) Red Cell Distribution Width 15.8 % (11.5-14.5) Platelet Count 136 x10^3/uL (140-400) Neutrophils (%) (Auto) 58 % (31-73) Lymphocytes (%) (Auto) 17 % (24-48) Monocytes (%) (Auto) 18 % (0-9) Eosinophils (%) (Auto) 5 % (0-3) Basophils (%) (Auto) 1 % (0-3) Neutrophils # (Auto) 2.4 x10^3uL (1.8-7.7) Lymphocytes # (Auto) 0.7 x10^3/uL (1.0-4.8) Monocytes # (Auto) 0.7 x10^3/uL (0.0-1.1) Eosinophils # (Auto) 0.2 x10^3/uL (0.0-0.7) Basophils # (Auto) 0.0 x10^3/uL (0.0-0.2) Segmented Neutrophils % 63 % (35-66) Band Neutrophils % 2 % (0-9) Lymphocytes % 15 % (24-48) Atypical Lymphocytes % (Manual) 1 % (0-0) Monocytes % 12 % (0-10) Eosinophils % 6 % (0-5) Basophils % 1 % (0-3) Platelet Estimate Decreased (ADEQUATE) Anisocytosis Slight Sodium Level 135 mmol/L (136-145) Potassium Level 3.6 mmol/L (3.5-5.1) Chloride Level 98 mmol/L (98-107) Carbon Dioxide Level 31 mmol/L (21-32) Anion Gap 6 (6-14) Blood Urea Nitrogen 8 mg/dL (7-20) Creatinine 0.8 mg/dL (0.6-1.0) Estimated GFR (Cockcroft-Gault) 71.3 Glucose Level 87 mg/dL (70-99) Calcium Level 8.7 mg/dL (8.5-10.1) Microbiology 12/18/17 Urine Culture - Final, Complete 12/18/17 Urine Culture Result 1 (AGATA) - Final, Complete 12/18/17 Urine Culture Result 2 (AGATA) - Final, Complete Medications Current Medications Iohexol (Omnipaque 300 Mg/ml) 75 ml 1X ONCE IV Last administered on at 12:45; Start 12/18/17 at 12:45; Stop 12/18/17 at 12:47; Status DC Info (CONTRAST GIVEN -- Rx MONITORING) 1 each PRN DAILY PRN MC SEE COMMENTS; Start 12/18/17 at 13:00; Stop 12/20/17 at 12:59; Status DC Ondansetron HCl (Zofran) 4 mg PRN Q8HRS PRN IV NAUSEA/VOMITING; Start at 13:45; Stop 12/18/17 at 14:22; Status DC Furosemide (Lasix) 40 mg 1X ONCE IVP Last administered on 12/18/17at 14:28; Start 12/18/17 at 13:45; Stop 12/18/17 at 13:47; Status DC Amlodipine Besylate (Norvasc) 5 mg DAILY PO ; Start 12/18/17 at 15:00; Status Cancel Levothyroxine Sodium (Synthroid) 25 mcg DAILY06 PO Last administered on at 05:26; Start 12/19/17 at 06:00 Zolpidem Tartrate (Ambien) 5 mg PRN QHS PRN PO INSOMNIA, MAY REPEAT X1 Last administered on 12/19/17at 20:51; Start 12/18/17 at 14:30 Acetaminophen (Tylenol) 650 mg PRN Q6HRS PRN PO FEVER Last administered on at 21:20; Start 12/18/17 at 14:30 Ondansetron HCl (Zofran) 4 mg PRN Q6HRS PRN IV NAUSEA/VOMITING; Start at 14:30 Docusate Sodium (Colace) 100 mg PRN DAILY PRN PO CONSTIPATION Last administered on 12/19/17at 20:46; Start 12/18/17 at 14:30 Labetalol HCl (Normodyne Iv Push) 20 mg PRN Q2HR PRN IVP HYPERTENSION, SEE COMMENTS; Start 12/18/17 at 14:30 Heparin Sodium (Porcine) (Heparin Sodium) 5,000 unit Q8HRS SQ Last administered on 12/22/17at 05:29; Start 12/18/17 at 15:00 Furosemide (Lasix) 40 mg DAILY PO ; Start 12/19/17 at 09:00; Stop 12/19/17 at 09:00; Status DC Albuterol Sulfate (Ventolin Neb Soln) 2.5 mg PRN Q4HRS PRN NEB SHORTNESS OF BREATH; Start 12/18/17 at 14:30 Furosemide (Lasix) 40 mg DAILY IVP Last administered on 12/20/17at 09:01; Start 12/19/17 at 09:00 Amlodipine Besylate (Norvasc) 5 mg DAILY PO Last administered on 12/22/17at 09: 13; Start 12/18/17 at 16:00 Magnesium Sulfate 50 ml @ 25 mls/hr 1X ONCE IV Last administered on at 09:11; Start 12/19/17 at 08:00; Stop 12/19/17 at 09:59; Status DC Influenza Virus Vaccine (Afluria Trivalent [id number] Syringe) 0.5 ml ONCE ONCE VAX IM Last administered on 12/20/17at 09:02; Start 12/20/17 at 09:00; Stop 12/20/17 at 09:01; Status DC Active Scripts Active Reported Nadolol 40 Mg Tablet 1 Tab PO DAILY Omeprazole 20 Mg Capsule.dr 1 Cap PO BID Levothyroxine Sodium 25 Mcg Tablet 25 Mcg PO DAILYAC Ambien (Zolpidem Tartrate) 10 Mg Tablet 1 Tab PO PRN QHS PRN Amlodipine Besylate 5 Mg Tablet 5 Mg PO DAILY Vitals/I & O Vital Sign - Last 24 Hours 12/21/17 12/21/17 12/21/17 12/21/17 11:00 15:00 19:00 19:45 Temp 98.1 98.1 97.9 98.1 98.1 97.9 Pulse 71 79 69 Resp 18 18 20 B/P (MAP) 120/40 (66) 137/57 (83) 144/55 (84) Pulse Ox 96 96 94 O2 Delivery Nasal Cannula Nasal Cannula Nasal Cannula Nasal Cannula O2 Flow Rate 3.0 3.0 3.0 12/21/17 12/22/17 12/22/17 12/22/17 23:00 03:06 07:00 08:00 Temp 97.4 97.6 97.7 97.4 97.6 97.7 Pulse 69 73 72 Resp 20 20 18 B/P (MAP) 118/62 (80) 147/77 (100) 121/67 (85) Pulse Ox 97 95 96 O2 Delivery Room Air Nasal Cannula Nasal Cannula Nasal Cannula O2 Flow Rate 3.0 12/22/17 09:13 Pulse 72 B/P (MAP) 121/67 Intake and Output 10/22/18 10/22/18 10/23/18 15:00 23:00 07:00 Intake Total 180 ml 180 ml Balance 180 ml 180 ml WERNER LOW MD Dec 22, 2017 09:58
[2017-12-22] MEDS ORDERED: FUROSEMIDE 20 MG TABLET PO SCH (10:30)
[2017-12-22 10:58] VITALS: BP 124/65
[2017-12-22] MEDS ORDERED: URSODIOL 300 MG CAPSULE. PO SCH (14:00)
--- NOTE | 2017-12-22 14:09 | PDOC ---
G I PROGRESS NOTE Subjective No major GI complaints. Seems comfortable. Objective They brought in pix from EGD's and colonoscopy over the past year. On review, does have varices. Physical Exam Lungs clear. RRR Abdomen soft, not tender. Review of Relevant I have reviewed the following items lizbeth (where applicable) has been applied. Labs Laboratory Tests Test 12/21/17 04:00 White Blood Count 4.1 x10^3/uL (4.0-11.0) Red Blood Count 4.57 x10^6/uL (3.50-5.40) Hemoglobin 14.1 g/dL (12.0-15.5) Hematocrit 42.0 % (36.0-47.0) Mean Corpuscular Volume 92 fL (79-100) Mean Corpuscular Hemoglobin 31 pg (25-35) Mean Corpuscular Hemoglobin Concent 34 g/dL (31-37) Red Cell Distribution Width 15.8 % (11.5-14.5) Platelet Count 136 x10^3/uL (140-400) Neutrophils (%) (Auto) 58 % (31-73) Lymphocytes (%) (Auto) 17 % (24-48) Monocytes (%) (Auto) 18 % (0-9) Eosinophils (%) (Auto) 5 % (0-3) Basophils (%) (Auto) 1 % (0-3) Neutrophils # (Auto) 2.4 x10^3uL (1.8-7.7) Lymphocytes # (Auto) 0.7 x10^3/uL (1.0-4.8) Monocytes # (Auto) 0.7 x10^3/uL (0.0-1.1) Eosinophils # (Auto) 0.2 x10^3/uL (0.0-0.7) Basophils # (Auto) 0.0 x10^3/uL (0.0-0.2) Segmented Neutrophils % 63 % (35-66) Band Neutrophils % 2 % (0-9) Lymphocytes % 15 % (24-48) Atypical Lymphocytes % (Manual) 1 % (0-0) Monocytes % 12 % (0-10) Eosinophils % 6 % (0-5) Basophils % 1 % (0-3) Platelet Estimate Decreased (ADEQUATE) Anisocytosis Slight Sodium Level 135 mmol/L (136-145) Potassium Level 3.6 mmol/L (3.5-5.1) Chloride Level 98 mmol/L (98-107) Carbon Dioxide Level 31 mmol/L (21-32) Anion Gap 6 (6-14) Blood Urea Nitrogen 8 mg/dL (7-20) Creatinine 0.8 mg/dL (0.6-1.0) Estimated GFR (Cockcroft-Gault) 71.3 Glucose Level 87 mg/dL (70-99) Calcium Level 8.7 mg/dL (8.5-10.1) Microbiology 12/18/17 Urine Culture - Final, Complete 12/18/17 Urine Culture Result 1 (AGATA) - Final, Complete 12/18/17 Urine Culture Result 2 (AGATA) - Final, Complete Markedly positive LILIANA with pattern c/w scleroderma/CREST. ASMAb pending. Vitals/I & O Vital Sign - Last 24 Hours 12/21/17 12/21/17 12/21/17 12/21/17 15:00 19:00 19:45 23:00 Temp 98.1 97.9 97.4 98.1 97.9 97.4 Pulse 79 69 69 Resp 18 20 20 B/P (MAP) 137/57 (83) 144/55 (84) 118/62 (80) Pulse Ox 96 94 97 O2 Delivery Nasal Cannula Nasal Cannula Nasal Cannula Room Air O2 Flow Rate 3.0 3.0 12/22/17 12/22/17 12/22/17 12/22/17 03:06 07:00 08:00 09:13 Temp 97.6 97.7 97.6 97.7 Pulse 73 72 72 Resp 20 18 B/P (MAP) 147/77 (100) 121/67 (85) 121/67 Pulse Ox 95 96 O2 Delivery Nasal Cannula Nasal Cannula Nasal Cannula O2 Flow Rate 3.0 12/22/17 10:58 Temp 98.3 98.3 Pulse 70 Resp 18 B/P (MAP) 124/65 (84) Pulse Ox 97 O2 Delivery Nasal Cannula Intake and Output 12/21/17 12/21/17 12/22/17 15:00 23:00 07:00 Intake Total 180 ml 180 ml Balance 180 ml 180 ml Problem List Problems Medical Problems: (1) Fluid overload Status: Acute Assessment Probably has PBC; will start ursodeoxycholic acid. Pulmonary hypertension--primary?Scleroderma?POPH from cirrhosis? Unclear to me. Plan of Care: Continue current Tx, Mgmt Plan of Care Note Adding Actigall. Will need EGD at some point as I think nearly a year from last banding; needs surveillance for recurrent varices. SYDNI HUERTA MD Dec 22, 2017 14:09
[2017-12-22 14:27] VITALS: BP 128/67
[2017-12-22 14:28] LABS: SMOOTH MUSCLE AB 56 Units (0-19)
--- NOTE | 2017-12-22 15:25 | PDOC3 ---
Discharge Summary Date of Admission: Dec 18, 2017 Date of Discharge: Dec 22, 2017 Follow-Up: 3-5 days Admitting Diagnosis comment: DISCHARGE DIAGNOSIS Chief Complaint Fluid overloaded, 2/2 acute on chronic diastolic CHF, EF 50% Anasarca h/o Cirrhosis wo clear etiology h/o varices s/p banding, remote minimal alcohol use accelerated HTN moderate to severe pulmonary hypertension CHRONIC resp failure with left side mild- moderate pleural effusion improving ascites with cirrhosis, CHF CREST dz Raynaulds dz morbid obesity mild malnutrition hypomagnesemia states she eats too many salty foods at home History of Present Illness History of Present Illness Pt seen and examined. DW RN change oral lasix 60MG , K-DUR 20 MEQ DAILY PO DW Vitals Vitals Vital Signs Date Time Temp Pulse Resp B/P (MAP) Pulse Ox O2 Delivery O2 Flow Rate FiO2 12/22/17 09:13 72 121/67 12/22/17 08:00 Nasal Cannula 3.0 12/22/17 07:00 97.7 18 96 97.7 Physical Exam General: Alert, Oriented X3, Cooperative, No acute distress Heart: Regular rate (SR), Normal S1, Normal S2, Other (2/6 systolic murmur to LLS border) Lungs: Clear Abdomen: Normal bowel sounds, Soft, No tenderness, Other (anasarca) Extremities: No clubbing, Other (1-+ bilateral LE pitting edema) Skin: No breakdown, No significant lesion, Other (telangiectasia) FINAL DIAGNOSIS Problems Medical Problems: (1) Fluid overload Status: Acute Brief Hospital Course Ms. Allen is a 67 old [sex] who presented with [CHF/ PULM HTN ] CONDITION AT DISCHARGE: Improved Discharge Medications Current Medications Iohexol (Omnipaque 300 Mg/ml) 75 ml 1X ONCE IV Last administered on at 12:45; Start 12/18/17 at 12:45; Stop 12/18/17 at 12:47; Status DC Info (CONTRAST GIVEN -- Rx MONITORING) 1 each PRN DAILY PRN MC SEE COMMENTS; Start 12/18/17 at 13:00; Stop 12/20/17 at 12:59; Status DC Ondansetron HCl (Zofran) 4 mg PRN Q8HRS PRN IV NAUSEA/VOMITING; Start at 13:45; Stop 12/18/17 at 14:22; Status DC Furosemide (Lasix) 40 mg 1X ONCE IVP Last administered on 12/18/17at 14:28; Start 12/18/17 at 13:45; Stop 12/18/17 at 13:47; Status DC Amlodipine Besylate (Norvasc) 5 mg DAILY PO ; Start 12/18/17 at 15:00; Status Cancel Levothyroxine Sodium (Synthroid) 25 mcg DAILY06 PO Last administered on at 05:26; Start 12/19/17 at 06:00 Zolpidem Tartrate (Ambien) 5 mg PRN QHS PRN PO INSOMNIA, MAY REPEAT X1 Last administered on 12/19/17at 20:51; Start 12/18/17 at 14:30 Acetaminophen (Tylenol) 650 mg PRN Q6HRS PRN PO FEVER Last administered on at 21:20; Start 12/18/17 at 14:30 Ondansetron HCl (Zofran) 4 mg PRN Q6HRS PRN IV NAUSEA/VOMITING; Start at 14:30 Docusate Sodium (Colace) 100 mg PRN DAILY PRN PO CONSTIPATION Last administered on 12/19/17at 20:46; Start 12/18/17 at 14:30 Labetalol HCl (Normodyne Iv Push) 20 mg PRN Q2HR PRN IVP HYPERTENSION, SEE COMMENTS; Start 12/18/17 at 14:30 Heparin Sodium (Porcine) (Heparin Sodium) 5,000 unit Q8HRS SQ Last administered on 12/22/17at 14:39; Start 12/18/17 at 15:00 Furosemide (Lasix) 40 mg DAILY PO ; Start 12/19/17 at 09:00; Stop 12/19/17 at 09:00; Status DC Albuterol Sulfate (Ventolin Neb Soln) 2.5 mg PRN Q4HRS PRN NEB SHORTNESS OF BREATH; Start 12/18/17 at 14:30 Furosemide (Lasix) 40 mg DAILY IVP Last administered on 12/20/17at 09:01; Start 12/19/17 at 09:00; Stop 12/22/17 at 10:12; Status DC Amlodipine Besylate (Norvasc) 5 mg DAILY PO Last administered on 12/22/17at 09: 13; Start 12/18/17 at 16:00 Magnesium Sulfate 50 ml @ 25 mls/hr 1X ONCE IV Last administered on at 09:11; Start 12/19/17 at 08:00; Stop 12/19/17 at 09:59; Status DC Influenza Virus Vaccine (Afluria Trivalent [id number] Syringe) 0.5 ml ONCE ONCE VAX IM Last administered on 12/20/17at 09:02; Start 12/20/17 at 09:00; Stop 12/20/17 at 09:01; Status DC Furosemide (Lasix) 60 mg DAILY PO Last administered on 12/22/17at 10:54; Start 12/22/17 at 10:30; Stop 12/31/17 at 10:29 Ursodiol (Actigall) 300 mg TIDWMEALS PO Last administered on 12/22/17at 14:35; Start 12/22/17 at 14:00 Active Scripts Active Reported Nadolol 40 Mg Tablet 1 Tab PO DAILY Omeprazole 20 Mg Capsule.dr 1 Cap PO BID Levothyroxine Sodium 25 Mcg Tablet 25 Mcg PO DAILYAC Ambien (Zolpidem Tartrate) 10 Mg Tablet 1 Tab PO PRN QHS PRN Amlodipine Besylate 5 Mg Tablet 5 Mg PO DAILY Vital Signs Vital Signs Date Time Temp Pulse Resp B/P (MAP) Pulse Ox O2 Delivery O2 Flow Rate FiO2 12/22/17 14:27 98.0 69 18 128/67 (87) 93 Nasal Cannula 98.0 12/22/17 08:00 3.0 Labs Laboratory Tests Test 12/21/17 04:00 White Blood Count 4.1 x10^3/uL (4.0-11.0) Red Blood Count 4.57 x10^6/uL (3.50-5.40) Hemoglobin 14.1 g/dL (12.0-15.5) Hematocrit 42.0 % (36.0-47.0) Mean Corpuscular Volume 92 fL (79-100) Mean Corpuscular Hemoglobin 31 pg (25-35) Mean Corpuscular Hemoglobin Concent 34 g/dL (31-37) Red Cell Distribution Width 15.8 % (11.5-14.5) Platelet Count 136 x10^3/uL (140-400) Neutrophils (%) (Auto) 58 % (31-73) Lymphocytes (%) (Auto) 17 % (24-48) Monocytes (%) (Auto) 18 % (0-9) Eosinophils (%) (Auto) 5 % (0-3) Basophils (%) (Auto) 1 % (0-3) Neutrophils # (Auto) 2.4 x10^3uL (1.8-7.7) Lymphocytes # (Auto) 0.7 x10^3/uL (1.0-4.8) Monocytes # (Auto) 0.7 x10^3/uL (0.0-1.1) Eosinophils # (Auto) 0.2 x10^3/uL (0.0-0.7) Basophils # (Auto) 0.0 x10^3/uL (0.0-0.2) Segmented Neutrophils % 63 % (35-66) Band Neutrophils % 2 % (0-9) Lymphocytes % 15 % (24-48) Atypical Lymphocytes % (Manual) 1 % (0-0) Monocytes % 12 % (0-10) Eosinophils % 6 % (0-5) Basophils % 1 % (0-3) Platelet Estimate Decreased (ADEQUATE) Anisocytosis Slight Sodium Level 135 mmol/L (136-145) Potassium Level 3.6 mmol/L (3.5-5.1) Chloride Level 98 mmol/L (98-107) Carbon Dioxide Level 31 mmol/L (21-32) Anion Gap 6 (6-14) Blood Urea Nitrogen 8 mg/dL (7-20) Creatinine 0.8 mg/dL (0.6-1.0) Estimated GFR (Cockcroft-Gault) 71.3 Glucose Level 87 mg/dL (70-99) Calcium Level 8.7 mg/dL (8.5-10.1) Allergies Allergies Coded Allergies Type Severity Reaction Last Updated Verified Sulfa (Sulfonamide Antibiotics) Allergy Severe Anaphylaxis 06/06/15 Yes codeine Allergy Mild NAUSEA 05/15/15 Yes Disposition/Orders: D/C to Home Patient Instructions D/C PLANNING 40 MIN WERNER LOW MD Dec 22, 2017 15:25
--- NOTE | 2017-12-22 15:31 | DISCH ---
DISCHARGE INSTRUCTIONS Condition on Discharge Condition on Discharge: Stable Activity After Discharge Activity Instructions for Disc: Activity as tolerated Lifting Instructions after Dis: No heavy lifting Exercise Instruction after Dis: Walk 10 min, 3 x per day, Progress as tolerated Driving Instructions after Dis: Do not drive Weight Bearing Status after Di: As tolerated Diet after Discharge Diet after Discharge: Cardiac, GI Soft, Low Sodium 2 gm Diet Texture: Regular Liquid Texture: Thin Liquid Wound Incision Care Wound/Incision Care: No wound care needed Checks after Discharge Checks after discharge: Check blood press - daily Contacting the DRRico after DC Call your doctor for: If your condition worsens Treatment/Equipment after DC Adaptive Equipment Issued: None Warfarin Follow-Up Warfarin Follow UP: SEE PCP IN 3-4 DAYS WERNER LOW MD Dec 22, 2017 15:31
[2017-12-22] MEDS ORDERED: FURO20TA3 PO (15:34)
[2017-12-22] MEDS ORDERED: URSO300C13 PO (15:34)
[2017-12-22] MEDS ORDERED: POTA20TA4 PO (15:34)
== END 2017-12-22 17:55 | disposition home or self-care (01) | DRG 291 ==
LOC: ER 11:01 → 5 NORTH 13:39
PROVIDERS: ADMIT Internal Medicine; ATTEND Internal Medicine
DX: I11.0 Hypertensive heart disease with heart failure (principal); J96.21 Acute and chronic respiratory failure with hypoxia; R18.8 Other ascites; E44.1 Mild protein-calorie malnutrition; K76.6 Portal hypertension; I50.33 Acute on chronic diastolic (congestive) heart failure; M34.1 CR(E)ST syndrome; E66.01 Morbid (severe) obesity due to excess calories; K21.9 Gastro-esophageal reflux disease without esophagitis; K57.90 Diverticulosis of intestine, part unspecified, without perforation or abscess without bleeding; E03.9 Hypothyroidism, unspecified; M19.90 Unspecified osteoarthritis, unspecified site; K72.90 Hepatic failure, unspecified without coma; K76.81 Hepatopulmonary syndrome; E83.42 Hypomagnesemia; Z90.710 Acquired absence of both cervix and uterus; Z82.49 Family history of ischemic heart disease and other diseases of the circulatory system; Z90.49 Acquired absence of other specified parts of digestive tract; Z85.048 Personal history of other malignant neoplasm of rectum, rectosigmoid junction, and anus; Z68.36 Body mass index [BMI] 36.0-36.9, adult; Z87.891 Personal history of nicotine dependence; Z99.81 Dependence on supplemental oxygen
CPT/HCPCS: 36415; 71045; 71275; 74177; 80048; 80053; 80061; 81001; 82728; 83520; 83540; 83690; 83735; 83880; 84443; 84484; 85007; 85025; 85610; 86038; 86255; 86803; 87086; 87340; 90471; 90756; 93005; 93306; 93970; 93975; 96374; J1644; J1940; J3475; Q9967; 83516; 99285-25; Q2035

== ENCOUNTER → 2018-02-01 | Outpatient (CLI) | payer MEDICARE ==
[~2018-02-01] MED LIST changes: +FURO20TA3 PO; +NADO40TA PO; +OMEP20CA9 PO; +POTA20TA4 PO; +URSO300C13 PO
--- NOTE | 2018-02-01 15:37 | CARD ---
MR#: [id number] Date of Study: 02/01/2018 Ordering Physician: NOMAN CARRION, Referring Physician: NOMAN CARRION, Tech: Liseth Ortiz APPROVED REPORT EXAM: Two-dimensional and M-mode echocardiogram with Doppler and color Doppler. Other Information Quality : AverageHR: 60bpm INDICATION Pulmonary Hypertention Echo Enhancing Agent Indication: Rule Out Septal Defect Agent/Amount Used: Agitated Saline 8mL RISK FACTORS Hypertension 2D DIMENSIONS RVDd3.0 (2.9-3.5cm)Left Atrium(2D)4.0 (1.6-4.0cm) IVSd1.1 (0.7-1.1cm)Aortic Root(2D)2.4 (2.0-3.7cm) LVDd4.3 (3.9-5.9cm)LVOT Diameter1.9 (1.8-2.4cm) PWd0.9 (0.7-1.1cm)LVDs2.5 (2.5-4.0cm) FS (%) 41.7 %SV62.2 ml LVEF(%)72.9 (>50%) Aortic Valve AoV Peak Roman.130.1cm/sAoV VTI30.7cm AO Peak GR.6.8mmHgLVOT Peak Roman.102.3cm/s AO Mean GR.3mmHgAVA (VMAX)2.32cm2 Mitral Valve MV E Jyzdiokb76.4cm/sMV DECEL THOY545fr MV A Onkkkztg83.8cm/sE/A Ratio1.6 Pulmonary Valve PV Peak Snfxcehw36.7cm/s Tricuspid Valve TR P. Rfxtzhkt781is/sRAP UQOFWXKN0iuFm TR Peak Gr.45njUtPFTD18hsKs LEFT VENTRICLE The left ventricle is normal size. There is normal left ventricular wall thickness. The left ventricu lar systolic function is normal and the ejection fraction is within normal range. EF 55% There is nor mal LV segmental wall motion. The left ventricular diastolic function and filling is normal for age. RIGHT VENTRICLE The right ventricle is moderately to severely dilated. The right ventricle is mildly hypertrophied. T he right ventricular systolic function is normal. ATRIA The left atrium is moderately dilated. The right atrium is severely dilated. Agitated saline contrast demonstrates a moderate sized right to left shunt most consistent with PFO. AORTIC VALVE The aortic valve is normal in structure and function. Doppler and Color Flow revealed trace aortic re gurgitation. There is no significant aortic valvular stenosis. MITRAL VALVE The mitral valve is normal in structure and function. There is no mitral valve stenosis. Doppler and Color-flow revealed trace mitral regurgitation. TRICUSPID VALVE The tricuspid valve is normal in structure and function. Doppler and Color Flow revealed mild tricusp id regurgitation with an estimated PAP of 89 mmHg consistent with severe pulmonary HTN. There is no t ricuspid valve stenosis. PULMONIC VALVE Doppler and Color Flow revealed trace to mild pulmonic valvular regurgitation. There is no pulmonic v alvular stenosis. GREAT VESSELS The aortic root is normal in size. The IVC is normal in size and collapses >50% with inspiration. PERICARDIAL EFFUSION There is no evidence of significant pericardial effusion. Critical Notification Critical Value: No <Conclusion> The left ventricular systolic function is normal and the ejection fraction is within normal range. EF 55% There is normal LV segmental wall motion. Agitated saline contrast demonstrates a moderate sized right to left shunt most consistent with PFO. Doppler and Color Flow revealed mild tricuspid regurgitation with an estimated PAP of 89 mmHg consist ent with severe pulmonary HTN. Doppler and Color Flow revealed trace to mild pulmonic valvular regurgitation. Consider RHC if not performed previously. Signed by : Scottie Naranjo, Electronically Approved : 02/01/2018 15:36:43
== END | disposition home or self-care (01) ==
LOC: ECHO 12:32
PROVIDERS: ATTEND Internal Medicine Pulmonary Disease
DX: I08.8 Other rheumatic multiple valve diseases (principal); I27.20 Pulmonary hypertension, unspecified; K76.81 Hepatopulmonary syndrome; I10 Essential (primary) hypertension
CPT/HCPCS: 93306